=== PATIENT | male | born 1975 | race Two or more races ===

== ENCOUNTER 2022-12-14 11:52 | Emergency (ER) | payer MEDICAID, SELFPAY ==
--- NOTE | ~2022-12-14 | XR_ITS ---
Examination: Right ankle and right foot: CLINICAL INDICATION: Foot pain. TECHNIQUE: Right foot 3 views and right ankle 2 views. FINDINGS: Right foot: There is no visible acute fracture, dislocation or subluxation seen. The soft tissues are normal. Right ankle: The ankle mortise and subtalar joints are normal. There is a nondisplaced fracture tip of medial malleolus with minimal soft tissue swelling. Minimal lateral malleolar soft tissue swelling is seen inferior to the fibula. XR/XR ankle RT min 3V IMPRESSION: Nondisplaced transverse fracture tip of medial malleolus with mild medial malleolar soft tissue swelling. Minimal lateral malleolar soft tissue swelling seen as well. No additional fracture seen. The right foot is unremarkable.
--- NOTE | ~2022-12-14 | XR_ITS ---
Examination: Right ankle and right foot: CLINICAL INDICATION: Foot pain. TECHNIQUE: Right foot 3 views and right ankle 2 views. FINDINGS: Right foot: There is no visible acute fracture, dislocation or subluxation seen. The soft tissues are normal. Right ankle: The ankle mortise and subtalar joints are normal. There is a nondisplaced fracture tip of medial malleolus with minimal soft tissue swelling. Minimal lateral malleolar soft tissue swelling is seen inferior to the fibula. XR/XR foot RT min 3V IMPRESSION: Nondisplaced transverse fracture tip of medial malleolus with mild medial malleolar soft tissue swelling. Minimal lateral malleolar soft tissue swelling seen as well. No additional fracture seen. The right foot is unremarkable.
[2022-12-14 12:00] VITALS: BP 140/94; PULSE 84
[2022-12-14 12:10] VITALS: BP 121/80; PULSE 80; RESP 16; TEMP 36.9; O2SAT 100; BMI 21.1
--- NOTE | 2022-12-14 13:11 | ED_ITS ---
HPI - General Adult General Chief complaint: Extremity Injury, Lower Stated complaint: R FOOT PAIN S/P DROPPING FURNITURE PER EMS Time Seen by Provider: 12/14/22 13:07 Source: patient and EMS Mode of arrival: EMS Limitations: no limitations History of Present Illness HPI narrative: Patient is a 47 year old assigned male at with a history of opiate abuse presenting to the emergency department today with right ankle pain. Patient states that he was carrying a couch, missed 4-5 steps, and twisted his right ank le. Patient denies hitting his head or having any loss of consciousness from the incident. Patient states that he would also like to go to detox. Patient denies any dizziness, lightheadedness, abdominal pain, nausea, vomiting, fever, chills, blurry vision, double vision, loss of vision, chest pain, difficulty breathing, shortness of breath, back pain, night sweats, pain with urination, increased u rinary frequency, increased urinary urgency, blood in his urine or stool, syncope or a near syncopal episode, bowel incontinence, bladder incontinence, bowel retention, bladder retention, or any other complaints at this time. Onset (ago): minute(s) Location: left and lower extremity Severity: mild Severity scale (1-10): 2 Relieving factors: none Exacerbating factors: none Associated symptoms: denies other symptoms Treatments prior to arrival: none Related Data Allergies Allergy/AdvReac Type Severity Reaction Status Date / Time No Known Allergies Allergy Verified 12/14/22 12:10 Review of Systems Constitutional: Constitutional: Reports no additional constitutional complaints, Denies chills, Denies fever(s) and Denies night sweats Eyes: Eyes: Reports no additional eye complaints, Denies blurry vision, Denies change in vision, Denies diplopia, Denies eye discharge, Denies loss of vision and Denies eye pain ENT: Denies dizziness Cardiovascular: Cardiovascular: Reports no additional cardiovascular complaints, Denies chest pain, Denies lightheadedness, Denies Loss of Consciousness and Denies dyspnea Respiratory: Respiratory: Reports no additional respiratory complaints and Denies dyspnea Gastrointestinal: Gastrointestinal: Reports no additional gastrointestinal complaints, Denies abdominal pain, Denies melena, Denies hematochezia, Denies change in bowel habits and Denies change in stool character Genitourinary: Genitourinary: Reports no additional male genitourinary complaints, Denies hematuria, Denies oliguria, Denies difficulty urinating, Denies dysuria, Denies urinary frequency, Denies urinary hesitancy, Denies urinary incontinence and Denies urinary urgency Musculoskeletal: Musculoskeletal: Reports no additional musculoskeletal complaints, Denies numbness and Denies tingling Comments: right ankle pain Neurologic: Denies dizziness, Denies loss of vision, Denies numbness and Kael es tingling Psychiatric: Psychiatric: Reports no additional psychiatric complaints Endocrine: Endocrine: Reports no additional endocrine complaints Hematologic/Lymphatic: Hematologic/Lymphatic: Reports no additional hematologic/lymphatic complaints Allergic/Immunologic: Allergic/Immunologic: Reports no additional allergic/immunologic complaints PMFSH Past Medical History Attestation statement: The following information was validated with the patient. Source: old records reviewed and nursing notes reviewed Social History Social History Alcohol intake: current Smoked in Last 30 Days: Yes Use of substances other than those prescribed or required for medical reasons: Yes Substance Use Type: Crack/Cocaine and Heroin Advance Directives: No Advance Directives Information Provided: Yes Physical Exam ED Vital Signs: Vital Signs - 24 hr 12/14/22 12:10 12/14/22 13:14 12/14/22 14:56 Temperature 98.5 F 98.3 F Pulse Rate 80 69 77 Respiratory Rate 16 16 14 Blood Pressure 121/80 135/90 H 131/77 Pulse Oximetry 100 99 99 Oxygen Delivery Method Room Air Room Air Room Air BMI result Body Mass Index 21.1 Const General: cooperative, no acute distress, alert and awake Nutritional Appearance: well nourished Orientation/consciousness: patient oriented x3 Limitations: no limitations [facility] Head: Yes normal to inspection and Yes atraumatic Ears: hearing grossly normal bilaterally and external ears normal General nose exam: Normal external nose present, no nasal discharge noted and no epistaxis Face and sinus: Yes normal facial exam, No abrasion and No laceration Mouth: Normal oral and palatal mucosa present, no drooling and no muffled voice Eyes General: appearance normal, both eyes and all related structures Periorbital: periorbital findings normal Eyelids: Yes eyelids normal Conjunctivae: conjunctivae normal Pupils: Equal, round and reactive pupils present EOM: EOMs intact bilaterally Neck Neck: Yes normal visual inspection, Yes full ROM and Yes no lymphadenopathy Chest Chest palpation & inspection: normal inspection of the chest Resp Effort & Inspection: normal respiratory effort and able to speak in complete sentences Auscultation: clear to auscultation bilaterally Cardio Rate: regular rate Rhythm: regular rhythm GI Inspection: Yes normal to inspection Neuro General: patient oriented x3 and moves all extremities Cranial nerves: Yes Equal, round and reactive pupils present Cognition (Neuro): normal cognition Motor exam (neuro): 5/5 motor strength present throughout Sensory Exam: Normal double simultaneous stimulation for sensation Coordination: [id number]-ca-[id number] test normal Extrem Other: minimal swellign to the right ankle General: Yes full ROM and Yes capillary refill normal Psych Appearance: grossly normal Mental Status: mental status grossly normal Affect: normal affect Attitude: cooperative Thought process: Normal thought process present Thought content: Normal thought content present Insight: Good insight present (Psych) Medications Administered Discontinued Medications Generic Name Dose Route Start Last Admin Trade Name Freq PRN Reason Stop Dose Admin Ketorolac Tromethamine 15 mg 12/14/22 14:38 12/14/22 14:55 Ketorolac Tromethamine 15 Mg/Ml Vial IM 12/14/22 14:39 15 mg ONCE ONE Administration Procedures Orthopedic Splinting/Casting Injury #1: Side: right Lower Extremity Injury Location: ankle Lower Extremity Immobilizer: posterior splint and stirrup splint Other Orthopedic Equipment: crutches Medical Decision Making Medical Decision Making MDM Narrative: Patient is a 47 year old assigned male at with a history of opioid abuse presenting to the emergency department today with right ankle pain and requesting detox. Patient's physical exam showed right ankle swelling but was otherwise unremarkable. Patient's right ankle x-ray showed an acute fracture. I explained my physical exam findings as well as all test results to the patient. I answered all questions asked by the patient. Patient had a splint applied to the affected ankle, without incident. PMS was intact prior to and after splint application. Recovery team was able to get the patient placed into a detox. I stressed the importance of the patient taking his regular medication as prescr ibed. I stressed the importance of the patient following up with his primary care provider and an orthopedic provider. I stressed the importance of the patient returning to the emergency department immediately if his symptoms were to worsen or if he were to develop any dizziness, shortness of breath, difficulty breathing, chest pain, blurry vision, loss of vision, nausea, vomiting, abdominal pain, fever, chills, back pain, or any other complaints. Patient verbalized agreement and understanding with this treatment plan and discharge. Differential Diagnosis Differential Diagnoses: The differential diagnosis associated with the presen tation includes right ankle fracture, detox Lab Data MDM Lab Attestation statement: I reviewed the patient's lab results. 12/14/22 13:48 12/14/22 13:48 Labs: Lab Results 12/14/22 12/14/22 12/14/22 Range/Units 13:48 13:48 13:48 WBC 10.1 (4.8-10.8) X10*3/uL RBC 4.04 L (4.60-5.80) X10*6/uL Hgb 12.9 L (14.0-18.0) g/dl Hct 38.6 L (42.0-52.0) % MCV 95.5 (80.0-98.0) fL MCH 31.9 (27.0-33.0) pg MCHC 33.4 (31.0-36.0) g/dl RDW 11.9 (11.0-16.0) % Plt Count 246 (160-400) X10*3/uL MPV 9.9 (9.4-12.4) fL Immature Gran % (Auto) 0.3 (0.0-0.4) % Neut % (Auto) 81.8 H (45-73) % Lymph % (Auto) 9.2 L (20-40) % Ashley % (Auto) 8.4 (2-11) % Eos % (Auto) 0.0 (0-4) % Baso % (Auto) 0.3 (0-2) % Lymph # (Auto) 0.9 L (1.2-4.9) X10*3/uL Ashley # (Auto) 0.9 (0.1-1.2) X10*3/uL Eos # (Auto) 0.0 (0.0-0.4) X10*3/uL Baso # (Auto) 0.0 (0.0-0.2) X10*3/uL Abs Immat Gran (auto) 0.03 (0.00-0.03) X10*3/uL Absolute Neuts (auto) 8.2 (2.0-8.3) x10*3/uL Absolute Nucleated RBC 0.000 (0.0-0.012) X10*3/uL Nucleated RBC % (auto) 0.0 (0.0-0.2) /100WBC Sodium 139 (135-145) mmol/L Potassium 3.7 (3.3-5.1) mmol/L Chloride 102 (96-108) mmol/L Carbon Dioxide 28 (22-29) mmol/L Anion Gap 13 (12-20) BUN 11 (9-16) mg/dL Creatinine 1.03 (0.5-1.4) mg/dL Estim Creat Clear Calc 76.7 Estimated GFR > 60 Random Glucose 165 H (60-115) mg/dL Calcium 8.7 (8.4-10.2) mg/dL Magnesium 2.2 (1.6-2.6) mg/dL Total Bilirubin 0.6 (0.0-1.0) mg/dL AST 20 (5-37) U/L ALT 10 (0-40) U/L Alkaline Phosphatase 68 (39-117) U/L Total Protein 5.9 L (6.5-8.0) g/dL Albumin 3.5 (3.5-5.0) g/dL Urine Opiates Screen (Not Detect) Urine Fentanyl Screen (Not Detect) Ur Barbiturates Screen (Not Detect) Ur Phencyclidine Scrn (Not Detect) Ur Amphetamines Screen (Not Detect) U Benzodiazepines Scrn (Not Detect) Urine Cocaine Screen (Not Detect) U Marijuana (THC) Screen (Not Detect) Ethyl Alcohol < 10 mg/dL COVID-19 (HYUN) Negative (Negative) COVID-19 Clin Com See Note 12/14/22 Range/Units 13:48 WBC (4.8-10.8) X10*3/uL RBC (4.60-5.80) X10*6/uL Hgb (14.0-18.0) g/dl Hct (42.0-52.0) % MCV (80.0-98.0) fL MCH (27.0-33.0) pg MCHC (31.0-36.0) g/dl RDW (11.0-16.0) % Plt Count (160-400) X10*3/uL MPV (9.4-12.4) fL Immature Gran % (Auto) (0.0-0.4) % Neut % (Auto) (45-73) % Lymph % (Auto) (20-40) % Ashley % (Auto) (2-11) % Eos % (Auto) (0-4) % Baso % (Auto) (0-2) % Lymph # (Auto) (1.2-4.9) X10*3/uL Ashley # (Auto) (0.1-1.2) X10*3/uL Eos # (Auto) (0.0-0.4) X10*3/uL Baso # (Auto) (0.0-0.2) X10*3/uL Abs Immat Gran (auto) (0.00-0.03) X10*3/uL Absolute Neuts (auto) (2.0-8.3) x10*3/uL Absolute Nucleated RBC (0.0-0.012) X10*3/uL Nucleated RBC % (auto) (0.0-0.2) /100WBC Sodium (135-145) mmol/L Potassium (3.3-5.1) mmol/L Chloride (96-108) mmol/L Carbon Dioxide (22-29) mmol/L Anion Gap (12-20) BUN (9-16) mg/dL Creatinine (0.5-1.4) mg/dL Estim Creat Clear Calc Estimated GFR Random Glucose (60-115) mg/dL Calcium (8.4-10.2) mg/dL Magnesium (1.6-2.6) mg/dL Total Bilirubin (0.0-1.0) mg/dL AST (5-37) U/L ALT (0-40) U/L Alkaline Phosphatase (39-117) U/L Total Protein (6.5-8.0) g/dL Albumin (3.5-5.0) g/dL Urine Opiates Screen Not Detected (Not Detect) Urine Fentanyl Screen POSITIVE H (Not Detect) Ur Barbiturates Screen Not Detected (Not Detect) Ur Phencyclidine Scrn Not Detected (Not Detect) Ur Amphetamines Screen Not Detected (Not Detect) U Benzodiazepines Scrn Not Detected (Not Detect) Urine Cocaine Screen POSITIVE H (Not Detect) U Marijuana (THC) Screen Not Detected (Not Detect) Ethyl Alcohol mg/dL COVID-19 (HYUN) (Negative) COVID-19 Clin Com Independent Interpretation I performed an independent interpretation of an: Plain X-Ray Interpretation: My interpretation is in agreement with the radiologist's impression of these imaging studies. Examination: Right ankle and right foot: CLINICAL INDICATION: Foot pain. TECHNIQUE: Right foot 3 views and right ankle 2 views. FINDINGS: Right foot: There is no visible acute fracture, dislocation or subluxation seen. The soft tissues are normal. Right ankle: The ankle mortise and subtalar joints are normal. There is a nondisplaced fracture tip of medial malleolus with minimal soft tissue swelling. Minimal lateral malleolar soft tissue swelling is seen inferior to the fibula. XR/XR foot RT min 3V IMPRESSION: Nondisplaced transverse fracture tip of medial malleolus with mild medial malleolar soft tissue swelling. Minimal lateral malleolar soft tissue swelling seen as well. ? No additional fracture seen. The right foot is unremarkable. Dictated By: Adrian Fajardo MD Signed By: Electronically signed by Adrian Fajardo MD 12/14/22 1300 Critical Care Time Critical Care Time Critical Care Time: Yes Total Critical Care Time: 30 Attestation: I spent 30 minutes of Critical Care Time with this patient. This does not include time spent on separately reported billable procedures. Discharge Plan Discharge Clinical Impression: Ankle fracture, Opioid use Patient Disposition: Home, Self-Care Instructions: Ankle Fracture (DC), Opioid Use Disorder (ED) Additional Instructions: Follow up with your primary care provider. Return to the emergency department immediately if your symptoms worsen or if you develop any dizziness, shortness of breath, difficulty breathing, chest pain, blurry vision, loss of vision, nausea, vomiting, abdominal pain, fever, chills, back pain, or any other complaints. Referrals: [facility] [Provider Group] (Call to establish and follow up with an orthopedic provider. ) Print Language: Thai
[2022-12-14 13:14] VITALS: BP 135/90; PULSE 69; RESP 16; TEMP 36.8; O2SAT 99
--- NOTE | 2022-12-14 13:31 | PC.NURSE ---
Splint to right ankle applied, +cms to distal extremity. Pt requesting and given food
[2022-12-14 13:59] LABS: MANUAL DIFF FLAG NO
[2022-12-14 14:06] LABS: Basophils Percent Auto 0.3 % (0-2); Hematocrit 38.6 % (42.0-52.0); Hemoglobin 12.9 g/dl (14.0-18.0); Imm Gran Abs Auto 0.03 X10*3/uL (0.00-0.03); Imm Gran Pct Auto 0.3 % (0.0-0.4); Lymphocytes Absolute Auto 0.9 X10*3/uL (1.2-4.9); Lymphocytes Percent Auto 9.2 % (20-40); Mean Corpuscular HGB Conc 33.4 g/dl (31.0-36.0); Mean Corpuscular Hemoglobin 31.9 pg (27.0-33.0); Mean Corpuscular Volume 95.5 fL (80.0-98.0); Mean Platelet Volume 9.9 fL (9.4-12.4); Monocytes Absolute Auto 0.9 X10*3/uL (0.1-1.2); Monocytes Percent Auto 8.4 % (2-11); Neutrophils Absolute Auto 8.2 x10*3/uL (2.0-8.3); Neutrophils Percent Auto 81.8 % (45-73); Platelet Count 246 X10*3/uL (160-400); Red Blood Count 4.04 X10*6/uL (4.60-5.80); Red Cell Distribution Width 11.9 % (11.0-16.0); White Blood Count 10.1 X10*3/uL (4.8-10.8)
[2022-12-14 14:17] LABS: Amphetamine Screen Urine Not Detected (Not Detect); Barbiturates, Urine Not Detected (Not Detect); Benzodiazepines Screen Urine Not Detected (Not Detect); Cannabinoid Screen Urine Not Detected (Not Detect); Cocaine Screen Urine POSITIVE (Not Detect); Fentanyl, urine POSITIVE (Not Detect); Opiate Screen Urine Not Detected (Not Detect); Phencyclidine Screen Urine Not Detected (Not Detect)
[2022-12-14 14:26] LABS: Alanine Aminotransferase 10 U/L (0-40); Albumin Level 3.5 g/dL (3.5-5.0); Alkaline Phosphatase 68 U/L (39-117); Anion Gap 13 (12-20); Aspartate Amino Transferase 20 U/L (5-37); Bilirubin Total 0.6 mg/dL (0.0-1.0); Blood Urea Nitrogen 11 mg/dL (9-16); Calcium 8.7 mg/dL (8.4-10.2); Carbon Dioxide 28 mmol/L (22-29); Chloride 102 mmol/L (96-108); Creatinine Clr Calc Pharmacy 76.7; Estimated Glomerular Filt Rate > 60; Ethanol < 10 mg/dL; Glucose Random 165 mg/dL (60-115); Magnesium 2.2 mg/dL (1.6-2.6); Potassium 3.7 mmol/L (3.3-5.1); Sodium 139 mmol/L (135-145); Total Protein 5.9 g/dL (6.5-8.0)
[2022-12-14 14:28] LABS: COVID-19 Test Negative (Negative); IDNOW Serial# 08D9AD1C
--- NOTE | 2022-12-14 14:38 | MHC.RECOVSUP ---
Met with pt in ED21 for potential ATS bed search. Pt reports having used for the past year, smoking about 1 bundle of heroin and 1 8 ball of crack a day. 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
[2022-12-14] MEDS: Ketorolac Tromethamine 15 MG/ML VIAL IM (14:55)
[2022-12-14 14:56] VITALS: BP 131/77; PULSE 77; RESP 14; O2SAT 99
--- NOTE | 2022-12-14 14:56 | MHC.RECOVSUP ---
[facility] has an open bed and informs that pt being in a split should not prevent him from being accepted, referral packet faxed.
--- NOTE | 2022-12-14 15:00 | PC.NURSE ---
Pt medicated for 10/10 right ankle pain. 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 Pt reports dependence on ETOH and crack/heroin. Reports h/o ETOH withdrawal but denies seizures and unable to state withdrawal sx. Last drink just CIRCUIT TESTER per pt. VSS Right ankle elevated, +CMS
--- NOTE | 2022-12-14 15:50 | MHC.RECOVSUP ---
Pt accepted to [facility] T/W arranging [facility] for 4:30pm admission.
== END 2022-12-14 16:19 | disposition home or self-care (01) ==
PROVIDERS: Physician Assistant Medical; Emergency Provider Emergency Medicine Emergency Medical Services
DX: S82.54XA Nondisplaced fracture of medial malleolus of right tibia, initial encounter for closed fracture (principal); X50.1XXA Overexertion from prolonged static or awkward postures, initial encounter; F11.10 Opioid abuse, uncomplicated; Y93.E9 Activity, other interior property and clothing maintenance; Y92.9 Unspecified place or not applicable; Y99.9 Unspecified external cause status
CPT/HCPCS: 29515; 36415; 73610; 73630; 80053; 80307; 82077; 83735; 85025; 87635; 96372; 99284; J1885

== ENCOUNTER 2022-12-23 07:10 | Outpatient (REF) | payer MEDICAID, SELFPAY ==
--- NOTE | ~2022-12-23 | XR_ITS ---
EXAMINATION: XR ANKLE, RIGHT CLINICAL INFORMATION: Right ankle pain. COMPARISON: Right ankle 12/14/2022 TECHNIQUE: AP, lateral, and mortise views of the right ankle. FINDINGS: There is a nondisplaced fracture medial malleolus with mild soft tissue swelling. No additional fracture seen. The ankle mortise and subtalar joints are normal. XR/XR ankle RT min 3V IMPRESSION: Nondisplaced fracture medial malleolus with mild soft tissue swelling. No major change compared to 12/14/2022
== END 2022-12-23 07:11 | disposition home or self-care (01) ==
LOC: HO.HOSX 07:10
PROVIDERS: Visit Provider Physician Assistant
DX: S82.891A Other fracture of right lower leg, initial encounter for closed fracture (principal)
CPT/HCPCS: 27760; 29405; 73610; 99202

== ENCOUNTER 2023-01-01 22:18 | Emergency (ER) | payer MEDICAID, SELFPAY ==
--- NOTE | ~2023-01-01 | CT_ITS ---
EXAMINATION: CT MASTOID INDICATION INFORMATION: Rule out right mastoiditis COMPARISON: None TECHNIQUE: 85 mL Omnipaque 350 intravenous contrast was utilized. Multidetector helical imaging was performed through the bilateral mastoids. Coronal and sagittal reformatted images were created. DLP: 388 mGy-cm DOSE LOWERING TECHNIQUES: This CT examination was performed using dose optimization techniques as appropriate, variously including the following: - Automated exposure control - Adjustment of mA and/or kV according to patient size (this includes techniques or standardized protocols for targeted exams were dose is matched to indication/reason for exam; i.e. extremities or head) - Use of iterative reconstruction technique FINDINGS: There is minimal scattered fluid in the posterior and inferior right mastoid air cells. No appreciable erosion of the bony septa. Middle ear cavity appears aerated. No surrounding bony erosion identified. Right external auditory canal appears opacified, with soft tissue thickening and inflammation. There is concern for developing phlegmonous change anterior to the inferior right mastoid air cells, without discrete organized collection at this time. Left mastoid air cells and middle ear cavity appear well-aerated. Visualized paranasal sinuses are well-aerated. There is anatomic alignment across the temporomandibular joints. There is mild stranding in the right parapharyngeal fat. Included portions of the brain parenchyma appear grossly unremarkable. CT/CT mastoid IMPRESSION: 1. Soft tissue thickening and inflammation of the right external auditory canal, suspicious for otitis externa. There is concern for developing phlegmonous change anterior to the inferior right mastoid air cells, without discrete organized collection at this time. 2. Minimal scattered fluid in the right mastoid air cells, without appreciable erosion of the bony septa. Middle ear cavity appears aerated.
[2023-01-01 22:21] VITALS: BP 130/78; BP 146/86; PULSE 75; PULSE 91; RESP 16; TEMP 36.5; O2SAT 94; BMI 23.5
[2023-01-01 23:06] LABS: Amphetamine Screen Urine Not Detected (Not Detect); Barbiturates, Urine Not Detected (Not Detect); Benzodiazepines Screen Urine Not Detected (Not Detect); Cannabinoid Screen Urine POSITIVE (Not Detect); Cocaine Screen Urine POSITIVE (Not Detect); Fentanyl, urine POSITIVE (Not Detect); Opiate Screen Urine Not Detected (Not Detect); Phencyclidine Screen Urine Not Detected (Not Detect)
[2023-01-01 23:15] LABS: MANUAL DIFF FLAG NO
[2023-01-01 23:17] LABS: Basophils Percent Auto 0.2 % (0-2); Eosinophils Percent Auto 0.1 % (0-4); Hematocrit 40.9 % (42.0-52.0); Hemoglobin 13.6 g/dl (14.0-18.0); Imm Gran Abs Auto 0.04 X10*3/uL (0.00-0.03); Imm Gran Pct Auto 0.3 % (0.0-0.4); Lymphocytes Absolute Auto 1.4 X10*3/uL (1.2-4.9); Lymphocytes Percent Auto 10.6 % (20-40); Mean Corpuscular HGB Conc 33.3 g/dl (31.0-36.0); Mean Corpuscular Hemoglobin 31.9 pg (27.0-33.0); Mean Platelet Volume 9.5 fL (9.4-12.4); Monocytes Absolute Auto 1.3 X10*3/uL (0.1-1.2); Monocytes Percent Auto 10.1 % (2-11); Neutrophils Absolute Auto 10.1 x10*3/uL (2.0-8.3); Neutrophils Percent Auto 78.7 % (45-73); Platelet Count 324 X10*3/uL (160-400); Red Blood Count 4.26 X10*6/uL (4.60-5.80); White Blood Count 12.8 X10*3/uL (4.8-10.8)
[2023-01-01 23:33] LABS: Alanine Aminotransferase 16 U/L (0-40); Albumin Level 4.2 g/dL (3.5-5.0); Alkaline Phosphatase 70 U/L (39-117); Anion Gap 13 (12-20); Aspartate Amino Transferase 25 U/L (5-37); Bilirubin Direct 0.1 mg/dL (0.0-0.5); Bilirubin Total 0.4 mg/dL (0.0-1.0); Blood Urea Nitrogen 12 mg/dL (9-16); Calcium 9.1 mg/dL (8.4-10.2); Carbon Dioxide 31 mmol/L (22-29); Chloride 102 mmol/L (96-108); Creatinine Clr Calc Pharmacy 82.8; Estimated Glomerular Filt Rate > 60; Glucose Random 115 mg/dL (60-115); Potassium 3.8 mmol/L (3.3-5.1); Sodium 142 mmol/L (135-145); Total Protein 6.9 g/dL (6.5-8.0)
[2023-01-01] MEDS: 0.9 % Sodium Chloride 1,000 ML 999 ML IVCONT (23:59)
[2023-01-01] MEDS: Clindamycin Phosphate/D5W 300 MG/50 ML PIGGYBACK 100 MG IV (23:59)
[2023-01-02] MEDS: methylPREDNISolone Sod Succ 125 MG/2 ML VIAL IVPUSH (00:05)
[2023-01-02] MEDS: diphenhydrAMINE HCL 50 MG/ML VIAL IVPUSH (00:05)
[2023-01-02] MEDS: Famotidine/PF 20 MG/2 ML VIAL IVPUSH (00:05)
[2023-01-02 00:16] VITALS: BP 141/82; PULSE 90; RESP 14; O2SAT 99
[2023-01-02 00:25] LABS: Ethanol < 10 mg/dL
[2023-01-02] MEDS: iohexoL 350 MG/ML 100 ML INFUS..BTL 85 ML IV (00:40)
[2023-01-02 01:09] VITALS: RESP 17
--- NOTE | 2023-01-02 01:27 | ED.ALCOHOL ---
HPI - Alcohol General Chief Complaint: ETOH/Substance Use Stated Complaint: ETOH USE PER EMS Time Seen by Provider: 01/01/23 22:36 Source: patient Mode of arrival: EMS Limitations: no limitations History of Present Illness HPI narrative: Patient comes to the emergency room via EMS. Patient was found wandering in the streets by police department. Patient admits that he has been using crack cocaine and heroin and drinking alcohol as well. Patient denies nausea vomiting diarrhea. Also, patient complaining of right-sided ear pain that started 3 days ago. Patient states that he thinks he has an infection and has been self treating it by pouring whiskey into his ear canal Related Data Home Medications Medication Instructions Recorded Confirmed No Known Home Meds 12/23/22 12/23/22 Allergies Allergy/AdvReac Type Severity Reaction Status Date / Time No Known Allergies Allergy Verified 12/23/22 09:43 Review of Systems Review of Systems: Constitutional : No Weight loss, No Fever, No Chills, No Night Sweats, No Fatigue, No Malaise ENT/Mouth : No Hearing loss, complaining of right-sided Ear Pain, swelling and inflammation. No Nasal Congestion, No Sinus Pain, No Hoarseness, No sore throat, No Rhinorrhea, No Swallowing Difficulty Eyes: No Eye Pain, No Swelling, No Redness, No Foreign Body, No Discharge, No Vision Changes Cardiovascular : No Chest Pain, No SOB, No Dyspnea on Exertion, No Orthopnea, No Edema, No Palpitations Respiratory : No Cough, No Sputum, No Wheezing, No Smoke Exposure, No Dyspnea Gastrointestinal : No Nausea, No Vomiting, No Diarrhea, No Constipation, No abdominal Pain, No Hematochezia, No Melena Genitourinary : no irregular bleeding, No Dysuria, No Urinary Frequency, No Hematuria, No Urinary Incontinence, No Urgency, No Flank Pain, No Urinary Flow Changes, No Hesitancy Musculoskeletal : No joint pain, No Myalgias, No Joint Swelling Skin : No Skin Lesions, No rash Neuro : No Weakness, No Numbness, No Paresthesias, No Loss of Consciousness, No Dizziness, No Headache Psych : No Anxiety/Panic, No Depression, No SI/HI/AH/VH, admits to using drugs and drinking alcohol Heme/Lymph: No Bruising, No Bleeding,No Lymphadenopathy Endocrine : No Polyuria, No Polydipsia, No Temperature Intolerance [facility] Past Medical History Medical History (Updated 01/02/23 @ 02:43 by Kasey Noble MD) Alcohol abuse Substance abuse Social History Social History (Updated 12/23/22 @ 09:43 by Memo Wallace) Alcohol intake: current Alcohol intake frequency: 0-2 drinks per day Alcohol type: beer and hard liquor Patient Tobacco Use Status: Former Tobacco user Smoked in Last 30 Days: Yes Use of substances other than those prescribed or required for medical reasons: Yes Substance Use Type: Crack/Cocaine and Heroin Advance Directives: No Advance Directives Information Provided: No Physical Exam ED Vital Signs: Vital Signs - 24 hr 01/01/23 22:21 01/02/23 00:16 01/02/23 01:09 Temperature 97.7 F Pulse Rate 91 90 Respiratory Rate 16 14 17 Blood Pressure 146/86 H 141/82 H Pulse Oximetry 94 99 Oxygen Delivery Method Room Air Room Air BMI result Body Mass Index 23.5 Const Other: Appearance: Alert. Oriented X3. No acute distress. Eyes: Pupils equal, round and reactive to light. ENT: Pharynx normal. Left ear canal within normal limits . Right ear canal exteriorly is grossly swollen, there is purulence draining from the ear canal, patient has pain at the tip of the mastoid bone. Due to the swelling in the ear canal, the tympanic membrane cannot be visualized Neck: Normal inspection. Neck supple. No lymph nodes noted. No crepitus CVS: Normal heart rate and rhythm. Pulses normal. Normal S1 and S2 Respiratory: No respiratory distress. Breath sounds normal. No Wheezing. No rales Abdomen: Soft and nontender. No rigidity. No distention. Skin: Skin warm and dry. Normal skin color. Normal skin turgor. Extremities: No lower extremity edema. No Lacerations. No Rash Neuro: Oriented X 3. No motor deficit. No sensory deficit. Moving all extremities. No slurred speech. CN 2 through 12 grossly intact Psych: calm, cooperative, normal affect Course Course Course Narrative: -patient had pain to palpation over the mastoid bone on the right side, labs and CT scan to rule out mastoiditis bending. Patient was given IV clindamycin while we wait for the results. -blood pressure stable, no fever, sepsis not suspect Medical Decision Making Medical Decision Making MDM Narrative: -patient was started on clindamycin IV. -CT scan of the mastoid bone shows otitis externa, concern for developing phlegmonous change anterior to the inferior right mastoid air cells without discrete organized collection at this time, no appreciable erosion of the bony septum. -I discussed the patient with Dr. Ritter, since we do not have ENT in case this develops into mastoiditis, recommendations are to transfer the patient. -we tried transferring the patient to [facility], [facility], who [place], [facility], all are close to transfers or do not have ENT on-call -we were able to get in touch with [place], pt accepted to [facility] ED. Patient agreeable to the transfer - Sign-out given to Dr. Higginbotham Differential Diagnosis Differential Diagnoses: The differential diagnosis associated with the presentation includes (Otitis media, otitis externa, mastoiditis) Admission/Observation Consideration of admission/observation: Escalation of care including admission/observation considered Consult Healthcare Provider Management of the patient was discussed with: Hospitalist Lab Data MDM Lab Attestation statement: I reviewed the patient's lab results. 01/01/23 23:12 01/01/23 08:35 Labs: Lab Results 01/01/23 01/01/23 01/01/23 Range/Units 22:48 23:12 23:12 WBC 12.8 H (4.8-10.8) X10*3/uL RBC 4.26 L (4.60-5.80) X10*6/uL Hgb 13.6 L (14.0-18.0) g/dl Hct 40.9 L (42.0-52.0) % MCV 96.0 (80.0-98.0) fL MCH 31.9 (27.0-33.0) pg MCHC 33.3 (31.0-36.0) g/dl RDW 12.0 (11.0-16.0) % Plt Count 324 D (160-400) X10*3/uL MPV 9.5 (9.4-12.4) fL Immature Gran % (Auto) 0.3 (0.0-0.4) % Neut % (Auto) 78.7 H (45-73) % Lymph % (Auto) 10.6 L (20-40) % [place] % (Auto) 10.1 (2-11) % Eos % (Auto) 0.1 (0-4) % Baso % (Auto) 0.2 (0-2) % Lymph # (Auto) 1.4 (1.2-4.9) X10*3/uL [place] # (Auto) 1.3 H (0.1-1.2) X10*3/uL Eos # (Auto) 0.0 (0.0-0.4) X10*3/uL Baso # (Auto) 0.0 (0.0-0.2) X10*3/uL Abs Immat Gran (auto) 0.04 H (0.00-0.03) X10*3/uL Absolute Neuts (auto) 10.1 H (2.0-8.3) x10*3/uL Absolute Nucleated RBC 0.000 (0.0-0.012) X10*3/uL Nucleated RBC % (auto) 0.0 (0.0-0.2) /100WBC ESR (0-15) MM/HR Sodium 142 (135-145) mmol/L Potassium 3.8 (3.3-5.1) mmol/L Chloride 102 (96-108) mmol/L Carbon Dioxide 31 H (22-29) mmol/L Anion Gap 13 (12-20) BUN 12 (9-16) mg/dL Creatinine 1.03 (0.5-1.4) mg/dL Estim Creat Clear Calc 82.8 Estimated GFR > 60 Random Glucose 115 (60-115) mg/dL Lactic Acid (0.5-2.0) mmol/L Calcium 9.1 (8.4-10.2) mg/dL Total Bilirubin 0.4 (0.0-1.0) mg/dL Direct Bilirubin 0.1 (0.0-0.5) mg/dL AST 25 (5-37) U/L ALT 16 (0-40) U/L Alkaline Phosphatase 70 (39-117) U/L C-Reactive Protein 0.47 (< or = 0.50) mg/dL Total Protein 6.9 (6.5-8.0) g/dL Albumin 4.2 (3.5-5.0) g/dL Urine Opiates Screen Not Detected (Not Detect) Urine Fentanyl Screen POSITIVE H (Not Detect) Ur Barbiturates Screen Not Detected (Not Detect) Ur Phencyclidine Scrn Not Detected (Not Detect) Ur Amphetamines Screen Not Detected (Not Detect) U Benzodiazepines Scrn Not Detected (Not Detect) Urine Cocaine Screen POSITIVE H (Not Detect) U Marijuana (THC) Screen POSITIVE H (Not Detect) Ethyl Alcohol mg/dL COVID-19 (HYUN) (Negative) COVID-19 Clin Com 01/01/23 01/01/23 01/02/23 Range/Units 23:12 23:58 02:04 WBC (4.8-10.8) X10*3/uL RBC (4.60-5.80) X10*6/uL Hgb (14.0-18.0) g/dl Hct (42.0-52.0) % MCV (80.0-98.0) fL MCH (27.0-33.0) pg MCHC (31.0-36.0) g/dl RDW (11.0-16.0) % Plt Count (160-400) X10*3/uL MPV (9.4-12.4) fL Immature Gran % (Auto) (0.0-0.4) % Neut % (Auto) (45-73) % Lymph % (Auto) (20-40) % [place] % (Auto) (2-11) % Eos % (Auto) (0-4) % Baso % (Auto) (0-2) % Lymph # (Auto) (1.2-4.9) X10*3/uL [place] # (Auto) (0.1-1.2) X10*3/uL Eos # (Auto) (0.0-0.4) X10*3/uL Baso # (Auto) (0.0-0.2) X10*3/uL Abs Immat Gran (auto) (0.00-0.03) X10*3/uL Absolute Neuts (auto) (2.0-8.3) x10*3/uL Absolute Nucleated RBC (0.0-0.012) X10*3/uL Nucleated RBC % (auto) (0.0-0.2) /100WBC ESR 11 (0-15) MM/HR Sodium (135-145) mmol/L Potassium (3.3-5.1) mmol/L Chloride (96-108) mmol/L Carbon Dioxide (22-29) mmol/L Anion Gap (12-20) BUN (9-16) mg/dL Creatinine (0.5-1.4) mg/dL Estim Creat Clear Calc Estimated GFR Random Glucose (60-115) mg/dL Lactic Acid (0.5-2.0) mmol/L Calcium (8.4-10.2) mg/dL Total Bilirubin (0.0-1.0) mg/dL Direct Bilirubin (0.0-0.5) mg/dL AST (5-37) U/L ALT (0-40) U/L Alkaline Phosphatase (39-117) U/L C-Reactive Protein (< or = 0.50) mg/dL Total Protein (6.5-8.0) g/dL Albumin (3.5-5.0) g/dL Urine Opiates Screen (Not Detect) Urine Fentanyl Screen (Not Detect) Ur Barbiturates Screen (Not Detect) Ur Phencyclidine Scrn (Not Detect) Ur Amphetamines Screen (Not Detect) U Benzodiazepines Scrn (Not Detect) Urine Cocaine Screen (Not Detect) U Marijuana (THC) Screen (Not Detect) Ethyl Alcohol < 10 mg/dL COVID-19 (HYUN) Negative (Negative) COVID-19 Clin Com See Note 01/02/23 Range/Units 02:06 WBC (4.8-10.8) X10*3/uL RBC (4.60-5.80) X10*6/uL Hgb (14.0-18.0) g/dl Hct (42.0-52.0) % MCV (80.0-98.0) fL MCH (27.0-33.0) pg MCHC (31.0-36.0) g/dl RDW (11.0-16.0) % Plt Count (160-400) X10*3/uL MPV (9.4-12.4) fL Immature Gran % (Auto) (0.0-0.4) % Neut % (Auto) (45-73) % Lymph % (Auto) (20-40) % [place] % (Auto) (2-11) % Eos % (Auto) (0-4) % Baso % (Auto) (0-2) % Lymph # (Auto) (1.2-4.9) X10*3/uL [place] # (Auto) (0.1-1.2) X10*3/uL Eos # (Auto) (0.0-0.4) X10*3/uL Baso # (Auto) (0.0-0.2) X10*3/uL Abs Immat Gran (auto) (0.00-0.03) X10*3/uL Absolute Neuts (auto) (2.0-8.3) x10*3/uL Absolute Nucleated RBC (0.0-0.012) X10*3/uL Nucleated RBC % (auto) (0.0-0.2) /100WBC ESR (0-15) MM/HR Sodium (135-145) mmol/L Potassium (3.3-5.1) mmol/L Chloride (96-108) mmol/L Carbon Dioxide (22-29) mmol/L Anion Gap (12-20) BUN (9-16) mg/dL Creatinine (0.5-1.4) mg/dL Estim Creat Clear Calc Estimated GFR Random Glucose (60-115) mg/dL Lactic Acid 0.7 (0.5-2.0) mmol/L Calcium (8.4-10.2) mg/dL Total Bilirubin (0.0-1.0) mg/dL Direct Bilirubin (0.0-0.5) mg/dL AST (5-37) U/L ALT (0-40) U/L Alkaline Phosphatase (39-117) U/L C-Reactive Protein (< or = 0.50) mg/dL Total Protein (6.5-8.0) g/dL Albumin (3.5-5.0) g/dL Urine Opiates Screen (Not Detect) Urine Fentanyl Screen (Not Detect) Ur Barbiturates Screen (Not Detect) Ur Phencyclidine Scrn (Not Detect) Ur Amphetamines Screen (Not Detect) U Benzodiazepines Scrn (Not Detect) Urine Cocaine Screen (Not Detect) U Marijuana (THC) Screen (Not Detect) Ethyl Alcohol mg/dL COVID-19 (HYUN) (Negative) COVID-19 Clin Com Radiology Impression Discussion of test interpretation with radiology: I have reviewed the radiologist's reading. Radiologist Impression: FINDINGS: There is minimal scattered fluid in the posterior and inferior right mastoid air cells. No appreciable erosion of the bony septa. Middle ear cavity appears aerated. No surrounding bony erosion identified. Right external auditory canal appears opacified, with soft tissue thickening and inflammation. There is concern for developing phlegmonous change anterior to the inferior right mastoid air cells, without discrete organized collection at this time. Left mastoid air cells and middle ear cavity appear well-aerated. Visualized paranasal sinuses are well-aerated. There is anatomic alignment across the temporomandibular joints. There is mild stranding in the right parapharyngeal fat. Included portions of the brain parenchyma appear grossly unremarkable. CT/CT mastoid IMPRESSION: 1.? Soft tissue thickening and inflammation of the right external auditory canal, suspicious for otitis externa. There is concern for developing phlegmonous change anterior to the inferior right mastoid air cells, without discrete organized collection at this time. 2.? Minimal scattered fluid in the right mastoid air cells, without appreciable erosion of the bony septa. Middle ear cavity appears aerated. Medications Administered Discontinued Medications Generic Name Dose Route Start Last Admin Trade Name Freq PRN Reason Stop Dose Admin Diphenhydramine HCl 50 mg 01/01/23 23:32 01/02/23 00:05 Diphenhydramine Hcl 50 Mg/Ml Vial IVPUSH 01/01/23 23:33 50 mg ONCE ONE Administration Famotidine 20 mg 01/01/23 23:32 01/02/23 00:05 Famotidine/Pf 20 Mg/2 Ml Vial IVPUSH 01/01/23 23:33 20 mg ONCE ONE Administration Sodium Chloride 1,000 mls @ 999 mls/hr 01/01/23 22:52 01/02/23 01:18 Ns IVCONT 01/01/23 23:52 Infused .Q1H1M ONE Infusion Clindamycin Phosphate 300 mg in 50 mls @ 100 mls/hr 01/01/23 22:52 01/02/23 00:45 Cleocin IV 01/01/23 23:21 Infused ONCE ONE Infusion Iohexol 85 ml 01/02/23 00:39 01/02/23 00:40 Iohexol 350 Mg/Ml 100 Ml Infus..Btl IV 01/02/23 00:40 85 ml ONCE ONE Administration Methylprednisolone Sodium Succinate 125 mg 01/01/23 23:32 01/02/23 00:05 Methylprednisolone Sod Succ 125 Mg/2 Ml Vial IVPUSH 01/01/23 23:33 125 mg ONCE ONE Administration Critical Care Time Critical Care Time Critical Care Time: Yes Total Critical Care Time: 60 Attestation: I have personally provided critical care time. Time includes review of lab data, radiology results, discussion with consultants, and monitoring for potential decompensation. Intervention performed as documented. Discharge Plan Discharge Clinical Impression: Alcoholic intoxication, Substance abuse, Otitis externa, Acute mastoiditis Patient Disposition: [facility] Transfer Details: [facility] ED to ED transfer Prescriptions: No Action No Known Home Meds
--- NOTE | 2023-01-02 02:06 | MHC.EDTECH ---
Call out to [facility] transfer line @[phone] spoke to Mckenzie who informed me they are not accepting any medical transfers
--- NOTE | 2023-01-02 02:06 | MHC.EDTECH ---
Call out to [facility] @[phone] spoke to Odalis who took demographics. Awaiting call back from ED.
[2023-01-02 02:26] LABS: Lactic Acid 0.7 mmol/L (0.5-2.0)
[2023-01-02 02:29] LABS: COVID-19 Test Negative (Negative); IDNOW Serial# BCCEAD1C
--- NOTE | 2023-01-02 02:33 | MHC.EDTECH ---
call out to [facility] transfer line @[phone]
--- NOTE | 2023-01-02 02:34 | MHC.EDTECH ---
sergio faxed @[phone] to [phone]
[2023-01-02 02:35] LABS: C Reactive Protein 0.47 mg/dL (< or = 0.50)
[2023-01-02 02:51] LABS: Erythrocyte Sedimentation Rate 11 MM/HR (0-15)
--- NOTE | 2023-01-02 02:57 | MHC.EDTECH ---
Call out to [facility] for BLS transport to [facility] ED @2675 ETA of 30 mins
--- NOTE | 2023-01-02 03:52 | PC.NURSE ---
this rn assumed care ofr pt @ 0330. rn to rn report given mecca kramer in ED. accepting provider Dr Loyola. pt calm and cooperative. report given to ems upon arrival for transfer
== END 2023-01-02 03:55 | disposition short-term general hospital (02) ==
PROVIDERS: Emergency Provider Emergency Medicine
DX: F10.220 Alcohol dependence with intoxication, uncomplicated (principal); Y90.0 Blood alcohol level of less than 20 mg/100 ml; H60.91 Unspecified otitis externa, right ear; H70.001 Acute mastoiditis without complications, right ear; F19.10 Other psychoactive substance abuse, uncomplicated; Z20.822 Contact with and (suspected) exposure to COVID-19
CPT/HCPCS: 36415; 70481; 80048; 80076; 80307; 82077; 83605; 85025; 85652; 86140; 87040; 87635; 96361; 96365; 96375; 99285; J1200; J2930; Q9967

== ENCOUNTER 2023-01-20 09:39 | Outpatient (REF) | payer MEDICAID, SELFPAY | END 2023-01-20 09:40 | disposition home or self-care (01) | LOC: HO.HOSX 09:39 | PROVIDERS: Visit Provider Physician Assistant | DX: Z13.89 Encounter for screening for other disorder (principal) ==

== ENCOUNTER 2023-02-03 16:35 | Emergency (ER) | payer MEDICAID, SELFPAY ==
[2023-02-03 16:46] VITALS: BP 128/82; BP 142/86; PULSE 108; PULSE 99; RESP 18; TEMP 36.9; O2SAT 100; O2SAT 99; BMI 23.5
[2023-02-03 18:36] LABS: MANUAL DIFF FLAG NO
[2023-02-03 18:41] LABS: Basophils Percent Auto 0.4 % (0-2); Eosinophils Absolute Auto 0.3 X10*3/uL (0.0-0.4); Eosinophils Percent Auto 3.4 % (0-4); Hematocrit 43.1 % (42.0-52.0); Hemoglobin 14.7 g/dl (14.0-18.0); Imm Gran Abs Auto 0.02 X10*3/uL (0.00-0.03); Imm Gran Pct Auto 0.2 % (0.0-0.4); Lymphocytes Absolute Auto 1.1 X10*3/uL (1.2-4.9); Lymphocytes Percent Auto 10.9 % (20-40); Mean Corpuscular HGB Conc 34.1 g/dl (31.0-36.0); Mean Corpuscular Hemoglobin 31.8 pg (27.0-33.0); Mean Corpuscular Volume 93.3 fL (80.0-98.0); Mean Platelet Volume 9.5 fL (9.4-12.4); Monocytes Absolute Auto 0.6 X10*3/uL (0.1-1.2); Monocytes Percent Auto 5.9 % (2-11); Neutrophils Percent Auto 79.2 % (45-73); Platelet Count 321 X10*3/uL (160-400); Red Blood Count 4.62 X10*6/uL (4.60-5.80); Red Cell Distribution Width 11.9 % (11.0-16.0); White Blood Count 10.1 X10*3/uL (4.8-10.8)
--- NOTE | 2023-02-03 18:42 | ED.OVERDOSE ---
HPI - Overdose General Chief Complaint: Overdose Stated Complaint: OD Time Seen by Provider: 02/03/23 16:37 Source: patient and EMS Mode of arrival: EMS Limitations: no limitations History of Present Illness HPI Narrative: This is a 47-year-old male brought into the emergency department by EMS for opiate overdose. Patient reports he met somebody on the streets who was smoking crack and ?dope? out of a crack pipe. Patient tells me that all he remembers is sitting down, doing this and then waking up with police by his side. Police gave 8 mg of intranasal Narcan and bagged him. Patient reports he would like detox. Denies visual, auditory and tactile hallucinations. Denies suicidal and homicidal ideation. No medical complaints today Related Data Home Medications Medication Instructions Recorded Confirmed No Known Home Meds 12/23/22 12/23/22 Allergies Allergy/AdvReac Type Severity Reaction Status Date / Time No Known Allergies Allergy Verified 12/23/22 09:43 Review of Systems Review of Systems: Constitutional : No Weight loss, No Fever, No Chills, No Fatigue, No Malaise ENT/Mouth : No sore throat, No Rhinorrhea Eyes: No Eye Pain, No Swelling, No Redness Cardiovascular : No Chest Pain, No SOB, No Dyspnea on Exertion, No Orthopnea, No Edema, No Palpitations Respiratory : No Cough, No Sputum, No Wheezing Gastrointestinal : No Nausea, No Vomiting, No Diarrhea, No Constipation, No abdominal Pain, No Hematochezia, No Melena Genitourinary : No Dysuria, No Urinary Frequency, No Hematuria, Musculoskeletal : No joint pain, No Myalgias, No Joint Swelling Skin : No Skin Lesions, No rash Neuro : No Weakness, No Numbness, No Dizziness, No Headache Psych : No Anxiety/Panic, No Depression All other systems reviewed and are negative Yes all other systems are reviewed and are negative [facility] Past Medical History Attestation statement: The following information was validated with the patient. Source: old records reviewed and nursing notes reviewed Medical History Alcohol abuse Substance abuse Social History Social History Alcohol intake: current Alcohol intake frequency: 0-2 drinks per day Alcohol type: beer and hard liquor Patient Tobacco Use Status: Former Tobacco user Substance Use Type: Crack/Cocaine and Heroin Advance Directives: No Advance Directives Information Provided: No Physical Exam Vital Signs: Vital Signs: Last Vital Signs Temp 98.4 F 02/03/23 16:46 Pulse 99 02/03/23 16:46 Resp 18 02/03/23 16:46 BP 128/82 02/03/23 16:46 Pulse Ox 100 02/03/23 16:46 O2 Del Method Room Air 02/03/23 16:46 BMI result Body Mass Index 23.5 vss Appearance: Alert.? Oriented X3.? No acute distress.? Head: Normocephalic, atraumatic, no step-offs or deformities Eyes: Pupils equal, round and reactive to light.? CVS: Normal heart rate and rhythm.? Pulses normal.? Respiratory: No respiratory distress.? Breath sounds normal.? Abdomen: Soft and nontender.? Skin: Skin warm and dry.? Normal skin color.? Normal skin turgor.? Extremities: No lower extremity edema.? No calf ttp. 5/5 strength to bilateral upper and lower extremities Neuro: Oriented X 3.? No motor deficit.? No sensory deficit. CN 2-12 intact Course Reevaluation(s) Reevaluation #1: CBC appears to be around patient's baseline. Chemistry no acute findings requiring intervention. Positive for fentanyl and cocaine. Negative ethanol. At this time patient to be placed into observation to allow more time to be evaluated by behavioral health team. At time observation was started patient common cooperative no acute distress will continue to monitor. Time: 19:37 Medical Decision Making Medical Decision Making [facility] Narrative: 1844 47-year-old male presents with opiate overdose, but Narcan and BVM prior to arrival. Seeking detox Physical exam benign Likely polysubstance abuse. Will rule out metabolic derangements, although unlikely. Plan medical clearance evaluation by behavioral health team Differential Diagnosis Differential Diagnoses: The differential diagnosis associated with the presentation includes Likely polysubstance abuse. Will rule out metabolic derangements, although unlikely. Admission/Observation Consideration of admission/observation: Escalation of care including admission/observation considered Possible psychiatric Lab Data [facility] Lab Attestation statement: I reviewed the patient's lab results. 02/03/23 18:31 02/03/23 18:31 Labs: Lab Results 02/03/23 02/03/23 02/03/23 Range/Units 18:31 18:31 18:31 WBC 10.1 (4.8-10.8) X10*3/uL RBC 4.62 (4.60-5.80) X10*6/uL Hgb 14.7 (14.0-18.0) g/dl Hct 43.1 (42.0-52.0) % MCV 93.3 (80.0-98.0) fL MCH 31.8 (27.0-33.0) pg MCHC 34.1 (31.0-36.0) g/dl RDW 11.9 (11.0-16.0) % Plt Count 321 (160-400) X10*3/uL MPV 9.5 (9.4-12.4) fL Immature Gran % (Auto) 0.2 (0.0-0.4) % Neut % (Auto) 79.2 H (45-73) % Lymph % (Auto) 10.9 L (20-40) % [place] % (Auto) 5.9 (2-11) % Eos % (Auto) 3.4 (0-4) % Baso % (Auto) 0.4 (0-2) % Lymph # (Auto) 1.1 L (1.2-4.9) X10*3/uL [place] # (Auto) 0.6 (0.1-1.2) X10*3/uL Eos # (Auto) 0.3 (0.0-0.4) X10*3/uL Baso # (Auto) 0.0 (0.0-0.2) X10*3/uL Abs Immat Gran (auto) 0.02 (0.00-0.03) X10*3/uL Absolute Neuts (auto) 8.0 (2.0-8.3) x10*3/uL Absolute Nucleated RBC 0.000 (0.0-0.012) X10*3/uL Nucleated RBC % (auto) 0.0 (0.0-0.2) /100WBC Sodium 140 (135-145) mmol/L Potassium 4.2 (3.3-5.1) mmol/L Chloride 104 (96-108) mmol/L Carbon Dioxide 29 (22-29) mmol/L Anion Gap 11 L (12-20) BUN 11 (9-16) mg/dL Creatinine 0.84 (0.5-1.4) mg/dL Estim Creat Clear Calc 101.6 Estimated GFR > 60 Random Glucose 99 (60-115) mg/dL Calcium 9.6 (8.4-10.2) mg/dL Magnesium 2.2 (1.6-2.6) mg/dL Total Bilirubin 0.6 (0.0-1.0) mg/dL AST 30 (5-37) U/L ALT 17 (0-40) U/L Alkaline Phosphatase 77 (39-117) U/L Total Protein 7.2 (6.5-8.0) g/dL Albumin 4.2 (3.5-5.0) g/dL Urine Opiates Screen Not Detected (Not Detect) Urine Fentanyl Screen POSITIVE H (Not Detect) Ur Barbiturates Screen Not Detected (Not Detect) Ur Phencyclidine Scrn Not Detected (Not Detect) Ur Amphetamines Screen Not Detected (Not Detect) U Benzodiazepines Scrn Not Detected (Not Detect) Urine Cocaine Screen POSITIVE H (Not Detect) U Marijuana (THC) Screen Not Detected (Not Detect) Ethyl Alcohol < 10 mg/dL Core Measures AMI core measures followed: Yes Measure exclusions: not indicated Critical Care Time Critical Care Time Critical Care Time: No Discharge Plan Discharge Clinical Impression: Drug overdose Patient Disposition: Still a Patient Prescriptions: No Action No Known Home Meds
[2023-02-03 19:09] LABS: Alanine Aminotransferase 17 U/L (0-40); Albumin Level 4.2 g/dL (3.5-5.0); Alkaline Phosphatase 77 U/L (39-117); Amphetamine Screen Urine Not Detected (Not Detect); Anion Gap 11 (12-20); Aspartate Amino Transferase 30 U/L (5-37); Barbiturates, Urine Not Detected (Not Detect); Benzodiazepines Screen Urine Not Detected (Not Detect); Bilirubin Total 0.6 mg/dL (0.0-1.0); Blood Urea Nitrogen 11 mg/dL (9-16); Calcium 9.6 mg/dL (8.4-10.2); Cannabinoid Screen Urine Not Detected (Not Detect); Carbon Dioxide 29 mmol/L (22-29); Chloride 104 mmol/L (96-108); Cocaine Screen Urine POSITIVE (Not Detect); Creatinine Clr Calc Pharmacy 101.6; Estimated Glomerular Filt Rate > 60; Ethanol < 10 mg/dL; Fentanyl, urine POSITIVE (Not Detect); Glucose Random 99 mg/dL (60-115); Magnesium 2.2 mg/dL (1.6-2.6); Opiate Screen Urine Not Detected (Not Detect); Phencyclidine Screen Urine Not Detected (Not Detect); Potassium 4.2 mmol/L (3.3-5.1); Sodium 140 mmol/L (135-145); Total Protein 7.2 g/dL (6.5-8.0)
[2023-02-04 05:33] VITALS: BP 131/89; PULSE 76; RESP 18; TEMP 35.7; O2SAT 100
--- NOTE | 2023-02-04 05:36 | PC.NURSE ---
Patient is alert and oriented. Changed over to rahel nichols. Vital signs stable. Patient continuing to state he would like detox. Plan to meet with care team
--- NOTE | 2023-02-04 06:32 | MHC.CARE ---
Jose R denies intentional overdose and he requested to be referred to the Recovery coaches so that he can go to Detox. He reports that this is his fourth overdose and he wants to get help.
--- NOTE | 2023-02-04 09:26 | PC.NURSE ---
tin recovery worker at the bedside
--- NOTE | 2023-02-04 10:09 | HO.SUDE ---
Met with pt in ED18 after pt presented to [facility] after overdose requiring Narcan. Pt laying in bed, eyes closed, easily awakes to voice. Pt reports being unsure of what events led up to ED visit. Pt reports having been in senior care x 11 years and was released approx 1 year ago. Upon release, pt began using heroin, INH, as well as returning to cocaine use, INH. Pt currently using approx 1 bundle heroin daily and a lot of cocaine. Pt also reports 7 24 oz cans of beer daily as well as 7 Fireball nips. Pt reports this is 4th overdose. Pt has been to ATS x 2 within the past year at [facility]. Pt currently reporting withdrawal symptoms including restlessness, feeling hot/cold, anxiety. Pt appears diaphoretic, sheets are damp from sweat. Pt interested in receiving methadone to address withdrawal symptoms while here. Pt interested in ATS, however, would like to go far away. Pt aware bed availability is limited but bedsearch will be conducted. Pt denies questions or concerns at this time. Discussed with Smiley Haynes and ED provider. Plan to administer 20 mg methadone and commence bedsearch.
[2023-02-04] MEDS: methADONE HCl 20 MG/2 ML ORAL.CONC PO (10:16)
--- NOTE | 2023-02-04 10:22 | MHC.RECOVSUP ---
Met with pt in ED18 after pt presented to [facility] after overdose requiring Narcan. Pt watching T.V. upon meeting sitting upright and able to hold a conversation. Pt reports having been in [facility] x 11 years and was released approx 1 year ago. Upon release, pt began using heroin, INH, as well as returning to cocaine use, INH. Pt reports this is 4th overdose. Pt interested in ATS, however, would like to go far away. Pt offered a phone screen for [facility] in [place] but declined as it was still too close for him. Pt goes on to share he is worried about going back to the streets and having a fatal OD and wants help. T/W informed pt that the bed search has been exhausted and [facility] was the only option for him. if he was worried about going back to the street after ATS he could go straight into [facility] but he still feels it wont work when he is in an area he knows. T/W informed pt about sectioning if he is worried about staying in treatment and pt informs he is not interested in sectioning. ATS bed search has been exhausted and pt can dc. Nurse and Provider aware. Pt denies questions or concerns at this time.
--- NOTE | 2023-02-04 11:53 | PHA.MEDREC ---
Pharmacy Consult ? Medication Reconciliation Pharmacy has completed the medication reconciliation.
== END 2023-02-04 12:22 | disposition home or self-care (01) ==
PROVIDERS: Physician Assistant; Emergency Provider Emergency Medicine Emergency Medical Services
DX: T40.1X1A Poisoning by heroin, accidental (unintentional), initial encounter (principal); Y92.9 Unspecified place or not applicable; Z79.899 Other long term (current) drug therapy; Z71.51 Drug abuse counseling and surveillance of drug abuser
CPT/HCPCS: 36415; 80053; 80307; 83735; 85025; 99284

== ENCOUNTER 2023-02-17 12:02 | Emergency (ER) | payer MEDICAID, SELFPAY ==
--- NOTE | ~2023-02-17 | XR_ITS ---
EXAMINATION: XR HAND, LEFT CLINICAL INFORMATION: Acute right hand pain COMPARISON: None available. TECHNIQUE: PA, lateral, and oblique views of the left hand. FINDINGS: It should be noted that the history indicates acute right hand pain and the left hand was imaged. No acute visible fracture or dislocation. Mild multi joint arthritic changes. Joint spaces and alignment are otherwise maintained. Soft tissues are unremarkable. XR/XR hand LT min 3V IMPRESSION: 1. It should be noted that the history indicates acute right hand pain and the left hand was imaged. Correlation for correct laterality. 2. No acute visible fracture or dislocation. 3. Mild multi joint arthritic changes.
--- NOTE | ~2023-02-17 | XR_ITS ---
EXAMINATION: XR ANKLE, RIGHT CLINICAL INFORMATION: Acute on chronic right ankle pain COMPARISON: Right ankle radiograph from 12/23/2022 TECHNIQUE: AP, lateral, and mortise views of the right ankle. FINDINGS: Redemonstration of fracture involving the medial malleolus with slightly increased displacement as compared to prior imaging. Ankle mortise is symmetric. Joint spaces and alignment are otherwise maintained. Soft tissue swelling overlying the medial malleolus. XR/XR ankle RT min 3V IMPRESSION: 1. Redemonstration of fracture involving the medial malleolus with slightly increased displacement as compared to prior imaging. 2. Soft tissue swelling overlying the medial malleolus.
--- NOTE | ~2023-02-17 | XR_ITS ---
EXAMINATION: XR RIBS, RIGHT CLINICAL INFORMATION: Right chest wall pain COMPARISON: None available. TECHNIQUE: 4 views of the right ribs were obtained. FINDINGS: No focal consolidation. No pneumothorax. Trachea is midline. Cardiac mediastinal silhouette is stable. No large pleural effusion. Soft tissues are unremarkable. Osseous structures are unremarkable. No acute visualized right-sided rib fractures. XR/XR ribs RT min 3V w [id number] IMPRESSION: 1. No acute cardiopulmonary process. 2. No acute visualized right-sided rib fractures.
[2023-02-17 12:15] VITALS: BP 125/89; BP 153/100; PULSE 108; PULSE 110; RESP 16; TEMP 37.2; O2SAT 98; O2SAT 99; BMI 25.7
--- NOTE | 2023-02-17 12:48 | PC.NURSE ---
pt changed over into gown and pants, belongings secured with security. pt now endorsing SI and requesting detox. [place] [employer] spokw with patient. Pt now resting comfortably on stretcher, eating food, reports pain in R ankle and L hand
--- NOTE | 2023-02-17 13:30 | PC.NURSE ---
pt belongings in rikion
[2023-02-17 14:03] LABS: MANUAL DIFF FLAG NO
[2023-02-17 14:08] LABS: Basophils Percent Auto 0.4 % (0-2); Eosinophils Percent Auto 0.1 % (0-4); Hematocrit 42.3 % (42.0-52.0); Hemoglobin 13.9 g/dl (14.0-18.0); Imm Gran Abs Auto 0.01 X10*3/uL (0.00-0.03); Imm Gran Pct Auto 0.1 % (0.0-0.4); Lymphocytes Absolute Auto 0.6 X10*3/uL (1.2-4.9); Lymphocytes Percent Auto 8.3 % (20-40); Mean Corpuscular HGB Conc 32.9 g/dl (31.0-36.0); Mean Corpuscular Volume 97.5 fL (80.0-98.0); Mean Platelet Volume 9.6 fL (9.4-12.4); Monocytes Absolute Auto 0.5 X10*3/uL (0.1-1.2); Monocytes Percent Auto 6.3 % (2-11); Neutrophils Absolute Auto 6.6 x10*3/uL (2.0-8.3); Neutrophils Percent Auto 84.8 % (45-73); Platelet Count 279 X10*3/uL (160-400); Red Blood Count 4.34 X10*6/uL (4.60-5.80); Red Cell Distribution Width 12.1 % (11.0-16.0); White Blood Count 7.7 X10*3/uL (4.8-10.8)
[2023-02-17 14:13] LABS: Appearance Urine Turbid; Color Urine Yellow; Glucose Urine UA Negative (Negative); Leukocyte Esterase Urine Small (1+) (Negative); Nitrite Urine Negative (Negative); PH 7.5 (5.0-9.0); Specific Gravity - Urine 1.015 (1.005-1.025); UMIC TRIGGER UACC YES; Urine Blood Negative (Negative); Urine Ketones Negative (Negative); Urine Protein 30 (1+) mg/dL (Neg-Trace)
[2023-02-17 14:23] LABS: Amphetamine Screen Urine Not Detected (Not Detect); Barbiturates, Urine Not Detected (Not Detect); Benzodiazepines Screen Urine Not Detected (Not Detect); Cannabinoid Screen Urine POSITIVE (Not Detect); Cocaine Screen Urine POSITIVE (Not Detect); Fentanyl, urine POSITIVE (Not Detect); Opiate Screen Urine Not Detected (Not Detect); Phencyclidine Screen Urine Not Detected (Not Detect)
--- NOTE | 2023-02-17 14:24 | ED_ITS ---
HPI - Overdose General Chief Complaint: Overdose Stated Complaint: od,narcam given w/good result per ems Time Seen by Provider: 02/17/23 12:18 Source: patient and EMS Mode of arrival: EMS Limitations: no limitations History of Present Illness HPI Narrative: 47-year-old male with history of polysubstance abuse presents after an accidental overdose. Patient denies suicidal or homicidal ideation. Patient has been using multiple street drugs. Last use his was today. He denies any alcohol today but does drink alcohol from time to time. Denies any fevers, chills, cough or mucus production. Denies any headache, nausea vomiting. Does complain of some right-sided chest pain, left hand pain and right ankle pain. Pain is [id number]. Worse with movement. The pain does not radiate. There is no numbness or tingling. Patient reports having fallen recently Related Data Previous Rx's Medication Instructions Recorded buprenorphine 8 mg-naloxone 2 mg 1 film sublingual BID #8 ea 02/18/23 sublingual film (Suboxone) Allergies Allergy/AdvReac Type Severity Reaction Status Date / Time seafood Allergy Difficulty Verified 02/17/23 17:44 Breathing Seasonal Allergies AdvReac Severe Nasal Verified 02/17/23 17:43 congestion Review of Systems Review of Systems: CONSTITUTIONAL: Denies weight loss, fever and chills. HEENT: Denies changes in vision and hearing. RESPIRATORY: Denies SOB and cough. CV: Denies palpitations no CP. GI: Denies abdominal pain, nausea, vomiting and diarrhea. : Denies dysuria and urinary frequency. MSK: + myalgia and joint pain. SKIN: Denies rash and pruritus. NEUROLOGICAL: Denies headache and syncope. PSYCHIATRIC: Denies recent changes in mood. Denies anxiety and depression. All other ROS are negative unless in HPI PMFSH Past Medical History Medical History Alcohol abuse Substance abuse Social History Social History Alcohol intake: current Alcohol intake frequency: a few times a week Alcohol type: beer and hard liquor Patient Tobacco Use Status: Former Tobacco user Substance Use Type: Crack/Cocaine and Heroin Physical Exam Vital Signs: Vital Signs: Last Vital Signs Temp 97.8 F 02/18/23 06:15 Pulse 53 06/09/23 06:15 Resp 12 02/18/23 06:15 BP 134/82 02/18/23 06:15 Pulse Ox 98 02/18/23 06:15 O2 Del Method Room Air 02/18/23 06:15 BMI result Body Mass Index 25.7 GEN: Well developed, no acute distress, alert, oriented HEENT: Normocephalic, atraumatic, normal external ears, nose appears normal, no oropharyngeal edema or exudates Eyes: Normal to appearance Neck: Supple, no lymphadenopathy Respiratory: Talks in complete sentences, no respiratory distress, clear to auscultation bilaterally Cardiovascular: Regular rate and rhythm, no murmurs rubs or gallops Abdomen: Soft, nontender, nondistended, no guarding, no rebound Back: No CVA tenderness Extremities: No clubbing cyanosis or edema, soft tissue swelling right ankle Neurologic: No focal neurologic deficits, cranial nerves 2-12 intact, strength is 5/5 bilaterally Skin: No rash Chest: Right lower chest anterior deformity Course Course Course Narrative: Patient's CT pending care team evaluation. Patient would like to go back to detox for his substance abuse. Will order x-rays to rule out acute traumatic injuries. Medications Administered Discontinued Medications Generic Name Dose Route Start Last Admin Trade Name Freq PRN Reason Stop Dose Admin Acetaminophen 975 mg 02/17/23 14:25 02/17/23 15:37 Acetaminophen 325 Mg Tablet PO 02/17/23 14:26 975 mg ONCE ONE Administration Buprenorphine/Naloxone 2 film 02/18/23 14:14 02/18/23 14:24 Buprenorphine/Naloxone 8/2 Mg Film SUBLINGUAL 02/18/23 14:15 Not Given ONCE ONE Cephalexin HCl 500 mg 02/17/23 14:32 02/17/23 15:37 Cephalexin 500 Mg Capsule PO 02/17/23 14:33 500 mg ONCE ONE Administration Ibuprofen 800 mg 02/17/23 23:02 02/17/23 23:07 Ibuprofen 800 Mg Tablet PO 02/17/23 23:03 800 mg ONCE ONE Administration Ibuprofen 600 mg 02/18/23 12:56 02/18/23 13:06 Ibuprofen 600 Mg Tablet PO 02/18/23 12:57 600 mg ONCE ONE Administration Nicotine Polacrilex 2 mg 02/17/23 17:48 02/17/23 17:53 Nicotine Polacrilex 2 Mg Gum BUCCAL 02/17/23 17:49 2 mg ONCE ONE Administration Medical Decision Making Medical Decision Making [facility] Narrative: Patient presents with accidental overdose. Denies suicidal homicidal ideation. Last use was earlier today. He does use alcohol and other drugs. Examination is nonfocal. There is some evidence of some traumatic injuries including right ankle, right chest wall and left hand. Will order x-rays to further evaluate. Care team has been ordered. Differential Diagnosis Differential Diagnoses: The differential diagnosis associated with the presentation includes (Contusion, sprain, strain, substance abuse, frequent falls, depression, anxiety) Consult Healthcare Provider Management of the patient was discussed with: Behavioral Health Provider Lab Data [facility] Lab Attestation statement: I reviewed the patient's lab results. 02/17/23 13:56 02/17/23 13:56 Labs: Lab Results 02/17/23 02/17/23 02/17/23 Range/Units 13:56 13:56 13:56 WBC 7.7 (4.8-10.8) X10*3/uL RBC 4.34 L (4.60-5.80) X10*6/uL Hgb 13.9 L (14.0-18.0) g/dl Hct 42.3 (42.0-52.0) % MCV 97.5 (80.0-98.0) fL MCH 32.0 (27.0-33.0) pg MCHC 32.9 (31.0-36.0) g/dl RDW 12.1 (11.0-16.0) % Plt Count 279 (160-400) X10*3/uL MPV 9.6 (9.4-12.4) fL Immature Gran % (Auto) 0.1 (0.0-0.4) % Neut % (Auto) 84.8 H (45-73) % Lymph % (Auto) 8.3 L (20-40) % [place] % (Auto) 6.3 (2-11) % Eos % (Auto) 0.1 (0-4) % Baso % (Auto) 0.4 (0-2) % Lymph # (Auto) 0.6 L (1.2-4.9) X10*3/uL [place] # (Auto) 0.5 (0.1-1.2) X10*3/uL Eos # (Auto) 0.0 (0.0-0.4) X10*3/uL Baso # (Auto) 0.0 (0.0-0.2) X10*3/uL Abs Immat Gran (auto) 0.01 (0.00-0.03) X10*3/uL Absolute Neuts (auto) 6.6 (2.0-8.3) x10*3/uL Absolute Nucleated RBC 0.000 (0.0-0.012) X10*3/uL Nucleated RBC % (auto) 0.0 (0.0-0.2) /100WBC Sodium 142 (135-145) mmol/L Potassium 3.7 (3.3-5.1) mmol/L Chloride 106 (96-108) mmol/L Carbon Dioxide 28 (22-29) mmol/L Anion Gap 12 (12-20) BUN 9 (9-16) mg/dL Creatinine 0.96 (0.5-1.4) mg/dL Estim Creat Clear Calc 79.6 Estimated GFR > 60 Random Glucose 107 (60-115) mg/dL Calcium 9.3 (8.4-10.2) mg/dL Total Bilirubin 0.4 (0.0-1.0) mg/dL AST 16 (5-37) U/L ALT 10 (0-40) U/L Alkaline Phosphatase 70 (39-117) U/L Total Protein 6.5 (6.5-8.0) g/dL Albumin 3.7 (3.5-5.0) g/dL Urine Color Urine Appearance Urine pH (5.0-9.0) Ur Specific Sherrill (1.005-1.025) Urine Protein (Neg-Trace) mg/dL Urine Glucose (UA) (Negative) mg/dL Urine Ketones (Negative) mg/dL Urine Blood (Negative) Urine Nitrite (Negative) Ur Leukocyte Esterase (Negative) Urine RBC (0-2) /HPF Urine WBC (0-5) /HPF Ur Squamous Epith Cells (0-2) /HPF Urine Bacteria (None Seen) Hyaline Casts (0-2) /LPF Urine Opiates Screen (Not Detect) Urine Fentanyl Screen (Not Detect) Ur Barbiturates Screen (Not Detect) Ur Phencyclidine Scrn (Not Detect) Ur Amphetamines Screen (Not Detect) U Benzodiazepines Scrn (Not Detect) Urine Cocaine Screen (Not Detect) U Marijuana (THC) Screen (Not Detect) Ethyl Alcohol < 10 mg/dL COVID-19 (HYUN) Negative (Negative) COVID-19 Clin Com See Note 02/17/23 02/17/23 Range/Units 13:56 13:56 WBC (4.8-10.8) X10*3/uL RBC (4.60-5.80) X10*6/uL Hgb (14.0-18.0) g/dl Hct (42.0-52.0) % MCV (80.0-98.0) fL MCH (27.0-33.0) pg MCHC (31.0-36.0) g/dl RDW (11.0-16.0) % Plt Count (160-400) X10*3/uL MPV (9.4-12.4) fL Immature Gran % (Auto) (0.0-0.4) % Neut % (Auto) (45-73) % Lymph % (Auto) (20-40) % [place] % (Auto) (2-11) % Eos % (Auto) (0-4) % Baso % (Auto) (0-2) % Lymph # (Auto) (1.2-4.9) X10*3/uL [place] # (Auto) (0.1-1.2) X10*3/uL Eos # (Auto) (0.0-0.4) X10*3/uL Baso # (Auto) (0.0-0.2) X10*3/uL Abs Immat Gran (auto) (0.00-0.03) X10*3/uL Absolute Neuts (auto) (2.0-8.3) x10*3/uL Absolute Nucleated RBC (0.0-0.012) X10*3/uL Nucleated RBC % (auto) (0.0-0.2) /100WBC Sodium (135-145) mmol/L Potassium (3.3-5.1) mmol/L Chloride (96-108) mmol/L Carbon Dioxide (22-29) mmol/L Anion Gap (12-20) BUN (9-16) mg/dL Creatinine (0.5-1.4) mg/dL Estim Creat Clear Calc Estimated GFR Random Glucose (60-115) mg/dL Calcium (8.4-10.2) mg/dL Total Bilirubin (0.0-1.0) mg/dL AST (5-37) U/L ALT (0-40) U/L Alkaline Phosphatase (39-117) U/L Total Protein (6.5-8.0) g/dL Albumin (3.5-5.0) g/dL Urine Color Yellow Urine Appearance Turbid Urine pH 7.5 (5.0-9.0) Ur Specific Sherrill 1.015 (1.005-1.025) Urine Protein 30 (1+) H (Neg-Trace) mg/dL Urine Glucose (UA) Negative (Negative) mg/dL Urine Ketones Negative (Negative) mg/dL Urine Blood Negative (Negative) Urine Nitrite Negative (Negative) Ur Leukocyte Esterase Small (1+) H (Negative) Urine RBC 0-2 (0-2) /HPF Urine WBC 11-20 H (0-5) /HPF Ur Squamous Epith Cells 0-2 (0-2) /HPF Urine Bacteria 1+ (None Seen) Hyaline Casts 6-10 (0-2) /LPF Urine Opiates Screen Not Detected (Not Detect) Urine Fentanyl Screen POSITIVE H (Not Detect) Ur Barbiturates Screen Not Detected (Not Detect) Ur Phencyclidine Scrn Not Detected (Not Detect) Ur Amphetamines Screen Not Detected (Not Detect) U Benzodiazepines Scrn Not Detected (Not Detect) Urine Cocaine Screen POSITIVE H (Not Detect) U Marijuana (THC) Screen POSITIVE H (Not Detect) Ethyl Alcohol mg/dL COVID-19 (HYUN) (Negative) COVID-19 Clin Com Independent Interpretation I performed an independent interpretation of an: Plain X-Ray (Right ribs: No pneumothorax not, no acute cardiopulmonary disease, no definite rib fracture, left hand: No acute fracture traumatic injury, right ankle, medial malleolus fracture seen previously now mildly displaced) Prescription Management I considered prescription management with: Pain Medication Chronic Conditions Patient?s care impacted by: Other (Polysubstance abuse) Discharge Plan Discharge Clinical Impression: Polysubstance abuse, Drug overdose, Right malleolar fracture Patient Disposition: Home, Self-Care Instructions: Ankle Fracture (ED), Polysubstance Abuse (ED) Additional Instructions: Follow-up with [facility] as outpatient Wear ortho boot for support Prescriptions: New buprenorphine-naloxone [Suboxone] 8-2 mg film 1 film sublingual BID Qty: 8 0RF Interventions: ED Discharge Assessment Last Done: 02/18/23 14:44 Discharge Date/Time: 02/18/23 14:49
[2023-02-17 14:27] LABS: Bacteria Urine 1+ (None Seen); RBC Urine 0-2 /HPF (0-2); Squamous Epithelial Cell Urine 0-2 /HPF (0-2); UACC Culture Trigger YES
[2023-02-17 14:29] LABS: COVID-19 Test Negative (Negative); IDNOW Serial# 08D9AD1C
[2023-02-17 14:30] LABS: Alanine Aminotransferase 10 U/L (0-40); Albumin Level 3.7 g/dL (3.5-5.0); Alkaline Phosphatase 70 U/L (39-117); Anion Gap 12 (12-20); Aspartate Amino Transferase 16 U/L (5-37); Bilirubin Total 0.4 mg/dL (0.0-1.0); Blood Urea Nitrogen 9 mg/dL (9-16); Calcium 9.3 mg/dL (8.4-10.2); Carbon Dioxide 28 mmol/L (22-29); Chloride 106 mmol/L (96-108); Creatinine Clr Calc Pharmacy 79.6; Estimated Glomerular Filt Rate > 60; Ethanol < 10 mg/dL; Glucose Random 107 mg/dL (60-115); Potassium 3.7 mmol/L (3.3-5.1); Sodium 142 mmol/L (135-145); Total Protein 6.5 g/dL (6.5-8.0)
[2023-02-17 15:00] VITALS: BP 116/55; PULSE 89; RESP 14; TEMP 37.4; O2SAT 100
[2023-02-17] MEDS: cephALEXin 500 MG CAPSULE PO (15:37)
[2023-02-17] MEDS: Acetaminophen 325 MG TABLET 975 MG PO (15:37)
[2023-02-17 16:00] VITALS: BP 126/100; PULSE 91; RESP 16; TEMP 36.6; O2SAT 98
--- NOTE | 2023-02-17 16:10 | MHC.EDTECH ---
THIS PCT ASSUMED CARE OF PT AT 1500 ,VITALS SIGN TAKEN ,PT HAD A SALAD ,AN ICE CREAM AND 2 CAN JUANJOSE JANET FOR SNACK .
--- NOTE | 2023-02-17 16:47 | HO.SUDE ---
This headline writer met w/ patient, patient reports [employer] using daily 20 nips fireball, 3-4 cans beer, smoking, 1 bundle daily heroin. Pt reports first started using opiates approximately one year ago. Pt reports history of 5 overdoses. Patient reports has never been on MAT. This headline writer reviewed medications for opiate use, pt states not interested in MOUD. PT reports no history of treatment, pt states was in long term for 11 years, prior to one year ago, when pt states first started using illicit opiates. Pt requesting detox at this time, pt interested in detox in [facility] only. This headline writer reviewed detox bedsearch process with patient, patient verbalized understanding.
--- NOTE | 2023-02-17 16:55 | MHC.RECOVSUP ---
ATS bed search has been exhausted with no availability at [facility], [place], [place], [facility], [place], or [facility].
[2023-02-17] MEDS: Nicotine Polacrilex 2 MG GUM BUCCAL (17:53)
[2023-02-17] MEDS: Ibuprofen 800 MG TABLET PO (23:07)
--- NOTE | 2023-02-18 05:56 | PC.NURSE ---
Patient slept through the night, no distress observed/reported, med rec completed/currently not on any medication, behavior non concerning, labs completed/resulted, no safety concerns at this time, disposition per recovery team is ATS bed search, will continue to monitor.
[2023-02-18 06:15] VITALS: BP 134/82; PULSE 53; RESP 12; TEMP 36.6; O2SAT 98
--- NOTE | 2023-02-18 10:46 | MHC.RECOVSUP ---
Addendum entered by Michael Guzman 02/18/23 13:55: Pt informs he is interested in [facility]. Original Note: ATS referral sent to [facility].
[2023-02-18] MEDS: Ibuprofen 600 MG TABLET PO (13:06)
--- NOTE | 2023-02-18 14:37 | MHC.RECOVRN ---
Met with pt in [facility] to discuss MOUD. Pt laying in bed, awake, alert, easily engages in conversation. Pt reports using heroin, 1 bundle daily, INH; cocaine, up to 3 grams daily, INH; alcohol, 7 nips Fireball as well as 7 24 oz beers daily, all x 1 year. Pt currently experiencing rhinorrhea, body aches, chills, and yawning. Pt is interested in Suboxone initiation and follow up with the [facility]. Pt educated regarding medication and induction methods, plan for pt to initiate later today when withdrawal symptoms worsen. Pt denies questions or concerns related to MOUD or initiation. Prescription to be sent to [facility]. Follow up with [facility] Wednesday 02/21 at 3PM. Discussed with Smiley Haynes APRN. ED RN and provider aware.
== END 2023-02-18 14:49 | disposition home or self-care (01) ==
PROVIDERS: Emergency Provider Emergency Medicine
DX: F19.10 Other psychoactive substance abuse, uncomplicated (principal); T50.911A Poisoning by multiple unspecified drugs, medicaments and biological substances, accidental (unintentional), initial encounter; Y92.9 Unspecified place or not applicable; S82.51XA Displaced fracture of medial malleolus of right tibia, initial encounter for closed fracture; W19.XXXA Unspecified fall, initial encounter; Z20.822 Contact with and (suspected) exposure to COVID-19; Y93.9 Activity, unspecified; Y99.9 Unspecified external cause status
CPT/HCPCS: 36415; 71101; 73130; 73610; 80053; 80307; 81001; 85025; 87086; 87635; 99285

== ENCOUNTER 2023-04-23 16:33 | Emergency (ER) | payer MEDICAID, SELFPAY ==
[2023-04-23 16:37] VITALS: PULSE 124; O2SAT 99
--- NOTE | 2023-04-23 16:37 | ED.GENADULT ---
HPI - General Adult General Chief complaint: Overdose Stated complaint: OVERDOSE 8MG NARCAN Time Seen by Provider: 04/23/23 16:37 Source: patient and EMS Mode of arrival: EMS Limitations: no limitations History of Present Illness HPI narrative: 47 y/o M healthy male presents via EMS after being found unresponsive on the sidewalk. Per EMS the patient was given Narcan by bystanders and became alert and oriented. Patient presents A&Ox4. Patient presents with no acute complaints. Patient denies any chest pain, shortness of breath, headache, N/V/D. Patient denies suicidal or homicidal ideation. Severity: mild Relieving factors: none Exacerbating factors: none Associated symptoms: denies other symptoms Treatments prior to arrival: none Related Data Previous Rx's Medication Instructions Recorded buprenorphine 8 mg-naloxone 2 mg 1 film sublingual BID #8 ea 02/18/23 sublingual film (Suboxone) Allergies Allergy/AdvReac Type Severity Reaction Status Date / Time seafood Allergy Difficulty Verified 04/23/23 16:38 Breathing Seasonal Allergies AdvReac Severe Nasal Verified 04/23/23 16:38 congestion Review of Systems Constitutional: Constitutional: Reports no additional constitutional complaints, Denies chills, Denies fever(s) and Denies night sweats Eyes: Eyes: Reports no additional eye complaints, Denies blurry vision, Denies change in vision, Denies diplopia, Denies eye discharge, Denies loss of vision and Denies eye pain ENT: Denies dizziness Cardiovascular: Cardiovascular: Reports no additional cardiovascular complaints, Denies chest pain, Denies lightheadedness, Denies Loss of Consciousness and Denies dyspnea Respiratory: Respiratory: Reports no additional respiratory complaints and Denies dyspnea Gastrointestinal: Gastrointestinal: Reports no additional gastrointestinal complaints, Denies abdominal pain, Denies melena, Denies hematochezia, Denies change in bowel habits and Denies change in stool character Genitourinary: Genitourinary: Reports no additional male genitourinary complaints, Denies hematuria, Denies oliguria, Denies difficulty urinating, Denies dysuria, Denies urinary frequency, Denies urinary hesitancy, Denies urinary incontinence and Denies urinary urgency Musculoskeletal: Musculoskeletal: Reports no additional musculoskeletal complaints, Denies numbness and Denies tingling Neurologic: Denies dizziness, Denies loss of vision, Denies numbness and Denies tingling Psychiatric: Psychiatric: Reports no additional psychiatric complaints Endocrine: Endocrine: Reports no additional endocrine complaints Hematologic/Lymphatic: Hematologic/Lymphatic: Reports no additional hematologic/lymphatic complaints Allergic/Immunologic: Allergic/Immunologic: Reports no additional allergic/immunologic complaints [facility] Past Medical History Attestation statement: The following information was validated with the patient. Source: old records reviewed and nursing notes reviewed Medical History Alcohol abuse Substance abuse Social History Social History Alcohol intake: current Alcohol intake frequency: a few times a week Alcohol type: beer and hard liquor Patient Tobacco Use Status: Former Tobacco user Smoked in Last 30 Days: No Use of substances other than those prescribed or required for medical reasons: Yes Substance Use Type: Crack/Cocaine and Heroin Advance Directives: No Advance Directives Information Provided: No Physical Exam ED Vital Signs: Vital Signs - 24 hr 04/23/23 16:40 04/23/23 19:54 Temperature 96.7 F L 97.6 F Pulse Rate 103 H 90 Respiratory Rate 14 18 Blood Pressure 106/65 131/63 Pulse Oximetry 97 100 Oxygen Delivery Method Room Air Room Air BMI result Body Mass Index 20.9 Const General: cooperative, no acute distress, alert and awake Nutritional Appearance: well nourished Orientation/consciousness: patient oriented x3 Limitations: no limitations HENMT Head: Yes normal to inspection and Yes atraumatic Ears: hearing grossly normal bilaterally and external ears normal General nose exam: Normal external nose present, no nasal discharge noted and no epistaxis Face and sinus: Yes normal facial exam, No abrasion and No laceration Mouth: Normal oral and palatal mucosa present, no drooling and no muffled voice Eyes General: appearance normal, both eyes and all related structures Periorbital: periorbital findings normal Eyelids: Yes eyelids normal Conjunctivae: conjunctivae normal Pupils: Equal, round and reactive pupils present EOM: EOMs intact bilaterally Neck Neck: Yes normal visual inspection, Yes full ROM and Yes no lymphadenopathy Chest Chest palpation & inspection: normal inspection of the chest Resp Effort & Inspection: normal respiratory effort and able to speak in complete sentences Auscultation: clear to auscultation bilaterally Cardio Rate: regular rate Rhythm: regular rhythm GI Inspection: Yes normal to inspection Palpation (GI): Soft to palpation, not firm, nontender and no guarding Neuro General: patient oriented x3 and moves all extremities Cranial nerves: Yes Equal, round and reactive pupils present Cognition (Neuro): normal cognition Motor exam (neuro): 5/5 motor strength present throughout Sensory Exam: Normal double simultaneous stimulation for sensation Coordination: [id number] test normal Extrem General: Yes normal to inspection, Yes full ROM and Yes capillary refill normal Psych Appearance: grossly normal Mental Status: mental status grossly normal Affect: normal affect Attitude: cooperative Thought process: Normal thought process present Thought content: Normal thought content present Insight: Good insight present (Psych) Medications Administered Discontinued Medications Generic Name Dose Route Start Last Admin Trade Name Freq PRN Reason Stop Dose Admin Naloxone HCl 8 mg 04/23/23 17:31 04/23/23 19:51 Naloxone Hcl Nasal Take Home 4 Mg [place] NOSTRILALT 04/23/23 17:32 8 mg ONCE ONE Administration Medical Decision Making Medical Decision Making MDM Narrative: Patient is a 47 year old assigned male at with a history of substance abuse presenting to the emergency department today after an accidental overdose. Patient's physical exam was unremarkable. I explained my physical exam findings to the patient. I answered all questions asked by the patient. Patient was given take home narcan. I stressed the importance of the patient taking his medication as prescribed. I stressed the importance of the patient following up with his primary care provider. I stressed the importance of the patient returning to the emergency department immediately if his symptoms were to worsen or if he were to develop any dizziness, shortness of breath, difficulty breathing, chest pain, blurry vision, loss of vision, nausea, vomiting, abdominal pain, fever, chills, back pain, or any other complaints. Patient verbalized agreement and understanding with this treatment plan and discharge. Differential Diagnosis Differential Diagnoses: The differential diagnosis associated with the presentation includes Accidental overdose Independent Historian Clinical information obtained from an independent historian. History obtained from or confirmed by: EMS (EMS provided additional history and confirmed the history provided by the patient. ) Prescription Management I considered prescription management with: Other (patient given take home narcan) Chronic Conditions Patient?s care impacted by: Other (heroin use) Social Determinants Patient?s care significantly limited by Social Determinants of Health including: Other Social Determinant of Health (heroin use) Discharge Plan Discharge Clinical Impression: Drug overdose Patient Disposition: Home, Self-Care Instructions: Adult Overdose (ED) Additional Instructions: Please stop using illicit drugs. If you choose to use illicit drugs, please do not do so alone. Follow up with your primary care provider. Return to the emergency department immediately if your symptoms worsen or if you develop any dizziness, shortness of breath, difficulty breathing, chest pain, blurry vision, loss of vision, nausea, vomiting, abdominal pain, fever, chills, back pain, or any other complaints. Prescriptions: No Action buprenorphine-naloxone [Suboxone] 8-2 mg film 1 film sublingual BID Qty: 8 0RF Referrals: [facility] [Provider Group] (Call to establish and follow up with a primary care provider. If you already have a primary care provider, please follow up with them.) [facility] [Provider Group] (Call to establish and follow up with a primary care provider. If you already have a primary care provider, please follow up with them.) [facility] [Provider Group] (Call to establish and follow up with a primary care provider. If you already have a primary care provider, please follow up with them.) Interventions: ED Discharge Assessment Last Done: 04/23/23 20:07 Discharge Date/Time: 04/23/23 20:09 Print Language: Turkmen
[2023-04-23 16:40] VITALS: BP 106/65; PULSE 103; RESP 14; TEMP 35.9; O2SAT 97; BMI 20.9
--- NOTE | 2023-04-23 18:47 | PC.NURSE ---
pt irlanda, oriented x 4, vss, 8mg IN narcan administered by bystander in field, awake on EMS arrival. pt reports that he thought he was just smoking crack, denies SI/HI. changed over by security, belongings in decon.
[2023-04-23] MEDS: Naloxone HCl Nasal TAKE HOME 4 MG SPRAY 8 MG NOSTRILALT (19:51)
[2023-04-23 19:54] VITALS: BP 131/63; PULSE 90; RESP 18; TEMP 36.4; O2SAT 100
--- NOTE | 2023-04-23 19:57 | MHC.EDTECH ---
This tech assumed care of patient at 1900, vitals were taken and are within normal limits, patient is awaiting discharge at this time.
== END 2023-04-23 20:09 | disposition home or self-care (01) ==
PROVIDERS: Emergency Provider Emergency Medicine
DX: T65.91XA Toxic effect of unspecified substance, accidental (unintentional), initial encounter (principal); Y92.9 Unspecified place or not applicable
CPT/HCPCS: 99283; 99284

== ENCOUNTER 2023-04-24 05:42 | Emergency (ER) | payer MEDICAID, SELFPAY ==
[2023-04-24 05:47] VITALS: BP 151/95; PULSE 109; RESP 18; TEMP 36.3; O2SAT 98; BMI 21.1
== END 2023-04-24 06:38 | disposition left against medical advice (07) ==
PROVIDERS: Emergency Provider Emergency Medicine
DX: H57.12 Ocular pain, left eye (principal)
CPT/HCPCS: 99281

== ENCOUNTER 2023-04-24 12:56 | Emergency (ER) | payer MEDICAID, SELFPAY ==
[2023-04-24 13:02] VITALS: BP 116/81; PULSE 73; RESP 16; TEMP 36.3; O2SAT 96; BMI 20.8
--- NOTE | 2023-04-24 13:03 | ED_ITS ---
HPI - General Adult General Chief complaint: Psychiatric Symptoms Stated complaint: ETOH/Depressed Time Seen by Provider: 04/24/23 14:44 Source: patient Mode of arrival: ambulatory Limitations: no limitations History of Present Illness HPI narrative: 47-year-old male with a history of depression, PTSD, alcohol use disorder, polysubstance use disorder who presents emergency department for evaluation of increased depression, increased PTSD and requesting detox from alcohol, cocaine and heroin use. The patient states that he drinks ice house beer 24 oz cans, 6- 7 per day. States his last drink was 2 hours prior to coming to the emergency department. He also states that he uses crack cocaine and snorts heroin daily. Patient last used prior to coming to the emergency department. He was seen here in the emergency department yesterday for accidental opiate overdose treated with Narcan. Patient states that his mind is racing and his PTSD is acting up. He states that he is feeling very depressed as well. He denies homicidal or suicidal ideation. He states that when he stops drinking alcohol he does get the shakes but he has never had delirium tremens or alcohol withdrawal seizures. Related Data Home Medications Medication Instructions Recorded Confirmed No Known Home Meds 04/24/23 04/24/23 Allergies Allergy/AdvReac Type Severity Reaction Status Date / Time seafood Allergy Difficulty Verified 04/24/23 05:47 Breathing Seasonal Allergies AdvReac Severe Nasal Verified 04/24/23 05:47 congestion Review of Systems Review of Systems: Yes all other systems are reviewed and are negative [facility] Past Medical History [facility] Narrative: Past medical history: PTSD, depression, alcohol use disorder, heroin use disorder, cocaine use disorder. Social history: He does smoke cigarettes. He does drink Icehouse beer 24 oz cans, 6-7 cans per day. He uses crack cocaine and uses intranasal heroin daily. Patient did overdose yesterday and was treated with Narcan by bystanders, seen in the emergency department. Medical History Alcohol abuse Substance abuse Social History Social History Alcohol intake: current Alcohol intake frequency: a few times a week Alcohol type: beer and hard liquor Patient Tobacco Use Status: Former Tobacco user Smoked in Last 30 Days: Yes Use of substances other than those prescribed or required for medical reasons: Yes Substance Use Type: Crack/Cocaine and Heroin Advance Directives: No Advance Directives Information Provided: Yes Physical Exam ED Vital Signs: Vital Signs - 24 hr 04/24/23 13:02 04/24/23 20:36 Temperature 97.4 F 97.4 F Pulse Rate 73 72 Respiratory Rate 16 16 Blood Pressure 116/81 108/74 Pulse Oximetry 96 97 Oxygen Delivery Method Room Air Room Air BMI result Body Mass Index 20.8 Vital signs were normal Exam: General: Patient is somnolent but arousable, he was falling asleep during my interview. He does have a strong odor of alcohol on his breath Head: Normocephalic, atraumatic EENT: PERRL, Lids normal, sclera normal, conjunctiva normal, nose normal , ears normal, throat without erythema or exudates Neck: Supple, no adenopathy, trachea midline and nontender Lung: breath sounds symmetric, no wheezing, rales or rhonchi Chest: symmetric movement, nontender Heart: regular rate and rhythm, normal S1, S2 no murmurs or rubs Abdomen: soft, non-tender, nondistended, normal bowel sounds Back: no vertebral tenderness, no CVAT Extremities: no deformities, moves all extremities symmetrically Skin: no rashes, no lesion, normal color and warmth Neuro: Awake, alert, oriented, normal speech, cranial nerves intact, moves all extremities symmetrically Psych: Pleasant, cooperative Medical Decision Making Medical Decision Making MDM Narrative: 47-year-old male with history of depression, PTSD, alcohol use disorder, heroin use disorder and crack cocaine use disorder who presents emergency department for evaluation of increased depression, increased PTSD and requesting detox for alcohol, cocaine and heroin use disorder. Patient drinks a significant amount of high alcohol content beer daily, uses crack cocaine and heroin daily. He does appear to be intoxicated at this time. He states that he does get shakes when he stops drinking but has never had delirium tremens or alcohol withdrawal seizures. The following evaluation was ordered: CBC, CMP, ethanol level, urine drug screen, urinalysis, COVID-19. I ordered a CIWA scale every 4 hours and the patient was also ordered to get Ativan 2 mg q.2 hours p.r.n. alcohol withdrawal symptoms. 1703: Start physician observation The patient's laboratory evaluation was unremarkable except for a urine drug screen which was positive for opiates, fentanyl, cocaine and THC. The patient was seen by the recovery counselor and given his overdose yesterday, was felt that he should be kept in the emergency department [facility] until tomorrow when a search for a detox program can be undertaken. Differential Diagnosis Differential Diagnoses: The differential diagnosis associated with the presentation includes Differential diagnosis includes but is not limited to depression, anxiety, PTSD flare, alcohol intoxication, electrolyte abnormalities, urinary tract infection , anemia Admission/Observation Consideration of admission/observation: Escalation of care including admission/observation considered Consult Healthcare Provider Management of the patient was discussed with: Commercial Installer (Recovery counselor) Lab Data My interpretation patient's laboratory evaluation is as follows: Urinalysis was positive for protein is, negative for nitrates, positive for leukocyte esterase. Microscopic revealed 0-2 RBCs,, 21-50 WBCs, 0-2 squamous cells, no bacteria- this is not consistent with a urinary tract infection and I would only treat him with antibiotics of his culture was positive. Urine tox screen was positive for opiates, fentanyl, cocaine and THC. Alcohol was below detectable limits 04/24/23 16:10 04/24/23 16:10 Labs: Lab Results 04/24/23 04/24/23 04/24/23 Range/Units 14:13 14:13 16:10 WBC 7.0 (4.8-10.8) X10*3/uL RBC 4.21 L (4.60-5.80) X10*6/uL Hgb 13.6 L (14.0-18.0) g/dl Hct 40.7 L (42.0-52.0) % MCV 96.7 (80.0-98.0) fL MCH 32.3 (27.0-33.0) pg MCHC 33.4 (31.0-36.0) g/dl RDW 12.7 (11.0-16.0) % Plt Count 259 (160-400) X10*3/uL MPV 9.6 (9.4-12.4) fL Immature Gran % (Auto) 0.3 (0.0-0.4) % Neut % (Auto) 62.9 (45-73) % Lymph % (Auto) 25.4 (20-40) % Carlton % (Auto) 9.8 (2-11) % Eos % (Auto) 1.3 (0-4) % Baso % (Auto) 0.3 (0-2) % Lymph # (Auto) 1.8 (1.2-4.9) X10*3/uL Carlton # (Auto) 0.7 (0.1-1.2) X10*3/uL Eos # (Auto) 0.1 (0.0-0.4) X10*3/uL Baso # (Auto) 0.0 (0.0-0.2) X10*3/uL Abs Immat Gran (auto) 0.02 (0.00-0.03) X10*3/uL Absolute Neuts (auto) 4.4 (2.0-8.3) x10*3/uL Absolute Nucleated RBC 0.000 (0.0-0.012) X10*3/uL Nucleated RBC % (auto) 0.0 (0.0-0.2) /100WBC Sodium (135-145) mmol/L Potassium (3.3-5.1) mmol/L Chloride (96-108) mmol/L Carbon Dioxide (22-29) mmol/L Anion Gap (12-20) BUN (9-16) mg/dL Creatinine (0.5-1.4) mg/dL Estim Creat Clear Calc Estimated GFR Random Glucose (60-115) mg/dL Calcium (8.4-10.2) mg/dL Total Bilirubin (0.0-1.0) mg/dL AST (5-37) U/L ALT (0-40) U/L Alkaline Phosphatase (39-117) U/L Total Protein (6.5-8.0) g/dL Albumin (3.5-5.0) g/dL Urine Color Yellow Urine Appearance Clear Urine pH 5.5 (5.0-9.0) Ur Specific [place] >= 1.030 H (1.005-1.025) Urine Protein 30 (1+) H (Neg-Trace) mg/dL Urine Glucose (UA) Negative (Negative) mg/dL Urine Ketones Trace (Negative) mg/dL Urine Blood Negative (Negative) Urine Nitrite Negative (Negative) Ur Leukocyte Esterase Moderate (2+) H (Negative) Urine RBC 0-2 (0-2) /HPF Urine WBC 21-50 H (0-5) /HPF Ur Squamous Epith Cells 0-2 (0-2) /HPF Urine Bacteria None Seen (None Seen) Hyaline Casts 0-2 (0-2) /LPF Urine Opiates Screen POSITIVE H (Not Detect) Urine Fentanyl Screen POSITIVE H (Not Detect) Ur Barbiturates Screen Not Detected (Not Detect) Ur Phencyclidine Scrn Not Detected (Not Detect) Ur Amphetamines Screen Not Detected (Not Detect) U Benzodiazepines Scrn Not Detected (Not Detect) Urine Cocaine Screen POSITIVE H (Not Detect) U Marijuana (THC) Screen POSITIVE H (Not Detect) Ethyl Alcohol mg/dL COVID-19 (HYUN) (Negative) COVID-19 Clin Com 04/24/23 04/24/23 Range/Units 16:10 16:10 WBC (4.8-10.8) X10*3/uL RBC (4.60-5.80) X10*6/uL Hgb (14.0-18.0) g/dl Hct (42.0-52.0) % MCV (80.0-98.0) fL MCH (27.0-33.0) pg MCHC (31.0-36.0) g/dl RDW (11.0-16.0) % Plt Count (160-400) X10*3/uL MPV (9.4-12.4) fL Immature Gran % (Auto) (0.0-0.4) % Neut % (Auto) (45-73) % Lymph % (Auto) (20-40) % Carlton % (Auto) (2-11) % Eos % (Auto) (0-4) % Baso % (Auto) (0-2) % Lymph # (Auto) (1.2-4.9) X10*3/uL Carlton # (Auto) (0.1-1.2) X10*3/uL Eos # (Auto) (0.0-0.4) X10*3/uL Baso # (Auto) (0.0-0.2) X10*3/uL Abs Immat Gran (auto) (0.00-0.03) X10*3/uL Absolute Neuts (auto) (2.0-8.3) x10*3/uL Absolute Nucleated RBC (0.0-0.012) X10*3/uL Nucleated RBC % (auto) (0.0-0.2) /100WBC Sodium 142 (135-145) mmol/L Potassium 4.0 (3.3-5.1) mmol/L Chloride 106 (96-108) mmol/L Carbon Dioxide 28 (22-29) mmol/L Anion Gap 12 (12-20) BUN 15 (9-16) mg/dL Creatinine 1.10 (0.5-1.4) mg/dL Estim Creat Clear Calc 70.8 Estimated GFR > 60 Random Glucose 117 H (60-115) mg/dL Calcium 9.1 (8.4-10.2) mg/dL Total Bilirubin 0.5 (0.0-1.0) mg/dL AST 25 (5-37) U/L ALT 15 (0-40) U/L Alkaline Phosphatase 66 (39-117) U/L Total Protein 6.7 (6.5-8.0) g/dL Albumin 3.8 (3.5-5.0) g/dL Urine Color Urine Appearance Urine pH (5.0-9.0) Ur Specific [place] (1.005-1.025) Urine Protein (Neg-Trace) mg/dL Urine Glucose (UA) (Negative) mg/dL Urine Ketones (Negative) mg/dL Urine Blood (Negative) Urine Nitrite (Negative) Ur Leukocyte Esterase (Negative) Urine RBC (0-2) /HPF Urine WBC (0-5) /HPF Ur Squamous Epith Cells (0-2) /HPF Urine Bacteria (None Seen) Hyaline Casts (0-2) /LPF Urine Opiates Screen (Not Detect) Urine Fentanyl Screen (Not Detect) Ur Barbiturates Screen (Not Detect) Ur Phencyclidine Scrn (Not Detect) Ur Amphetamines Screen (Not Detect) U Benzodiazepines Scrn (Not Detect) Urine Cocaine Screen (Not Detect) U Marijuana (THC) Screen (Not Detect) Ethyl Alcohol < 10 mg/dL COVID-19 (HYUN) Negative (Negative) COVID-19 Clin Com See Note Chronic Conditions Patient?s care impacted by: Other (Polysubstance use disorder, alcohol use disorder) Discharge Plan Discharge Clinical Impression: Depression, Post traumatic stress disorder, Alcohol intoxication, Alcohol use disorder, Heroin use, Cocaine use Patient Disposition: Still a Patient Prescriptions: No Action No Known Home Meds Interventions: [place]-Suicide Risk Severity Scale Last Done: 04/25/23 05:43
[2023-04-24 14:29] LABS: Appearance Urine Clear; Color Urine Yellow; Glucose Urine UA Negative (Negative); Leukocyte Esterase Urine Moderate (2+) (Negative); Nitrite Urine Negative (Negative); PH 5.5 (5.0-9.0); UMIC TRIGGER UACC YES; Urine Blood Negative (Negative); Urine Ketones Trace mg/dL (Negative); Urine Protein 30 (1+) mg/dL (Neg-Trace)
[2023-04-24 14:34] LABS: Bacteria Urine None Seen (None Seen); Hyaline Casts Urine 0-2 /LPF (0-2); RBC Urine 0-2 /HPF (0-2); Specific Gravity - Urine >= 1.030 (1.005-1.025); Squamous Epithelial Cell Urine 0-2 /HPF (0-2); UACC Culture Trigger YES; WBC Urine 21-50 /HPF (0-5)
[2023-04-24 14:44] LABS: Amphetamine Screen Urine Not Detected (Not Detect); Barbiturates, Urine Not Detected (Not Detect); Benzodiazepines Screen Urine Not Detected (Not Detect); Cannabinoid Screen Urine POSITIVE (Not Detect); Cocaine Screen Urine POSITIVE (Not Detect); Fentanyl, urine POSITIVE (Not Detect); Opiate Screen Urine POSITIVE (Not Detect); Phencyclidine Screen Urine Not Detected (Not Detect)
[2023-04-24 16:14] LABS: MANUAL DIFF FLAG NO
[2023-04-24 16:17] LABS: Basophils Percent Auto 0.3 % (0-2); Eosinophils Absolute Auto 0.1 X10*3/uL (0.0-0.4); Eosinophils Percent Auto 1.3 % (0-4); Hematocrit 40.7 % (42.0-52.0); Hemoglobin 13.6 g/dl (14.0-18.0); Imm Gran Abs Auto 0.02 X10*3/uL (0.00-0.03); Imm Gran Pct Auto 0.3 % (0.0-0.4); Lymphocytes Absolute Auto 1.8 X10*3/uL (1.2-4.9); Lymphocytes Percent Auto 25.4 % (20-40); Mean Corpuscular HGB Conc 33.4 g/dl (31.0-36.0); Mean Corpuscular Hemoglobin 32.3 pg (27.0-33.0); Mean Corpuscular Volume 96.7 fL (80.0-98.0); Mean Platelet Volume 9.6 fL (9.4-12.4); Monocytes Absolute Auto 0.7 X10*3/uL (0.1-1.2); Monocytes Percent Auto 9.8 % (2-11); Neutrophils Absolute Auto 4.4 x10*3/uL (2.0-8.3); Neutrophils Percent Auto 62.9 % (45-73); Platelet Count 259 X10*3/uL (160-400); Red Blood Count 4.21 X10*6/uL (4.60-5.80); Red Cell Distribution Width 12.7 % (11.0-16.0)
[2023-04-24 16:33] LABS: COVID-19 Test Negative (Negative); IDNOW Serial# 55D5AD1C
[2023-04-24 16:41] LABS: Alanine Aminotransferase 15 U/L (0-40); Albumin Level 3.8 g/dL (3.5-5.0); Alkaline Phosphatase 66 U/L (39-117); Anion Gap 12 (12-20); Aspartate Amino Transferase 25 U/L (5-37); Bilirubin Total 0.5 mg/dL (0.0-1.0); Blood Urea Nitrogen 15 mg/dL (9-16); Calcium 9.1 mg/dL (8.4-10.2); Carbon Dioxide 28 mmol/L (22-29); Chloride 106 mmol/L (96-108); Creatinine Clr Calc Pharmacy 70.8; Estimated Glomerular Filt Rate > 60; Ethanol < 10 mg/dL; Glucose Random 117 mg/dL (60-115); Sodium 142 mmol/L (135-145); Total Protein 6.7 g/dL (6.5-8.0)
--- NOTE | 2023-04-24 16:53 | MHC.RECOVSUP ---
Met with pt in [facility] who is here for psychiatric and [facility]ESNA. Pt was brought to the ED yesterday for an OD and is in again today wanting ATS. Pt has been smoking about an 8 ball of crack and 1/2 a bag of heroin a day and is not currently on MAT nor does he want to be. Pt informs yesterday was his 6th OD and he can not recall when or where he last received treatment. Pt information will be sent to [facility] for ATS and will follow up in the morning. Pt has no other questions or concerns at this time, provider aware.
--- NOTE | 2023-04-24 19:56 | PC.NURSE ---
assumed care of patient at 1900 pt resting comfortably on stretcher in no apparent distress. will ctm
[2023-04-24 20:36] VITALS: BP 108/74; PULSE 72; RESP 16; TEMP 36.3; O2SAT 97
--- NOTE | 2023-04-25 02:00 | PC.NURSE ---
patient awake ambulating to and from restroom with steady gait pt requesting and given sandwich. no apparent distress offering no current complaints
== END 2023-04-25 11:50 | disposition home or self-care (01) ==
PROVIDERS: Physician Assistant; Emergency Provider Emergency Medicine Emergency Medical Services
DX: F33.1 Major depressive disorder, recurrent, moderate (principal); F43.10 Post-traumatic stress disorder, unspecified; F10.129 Alcohol abuse with intoxication, unspecified; Y90.0 Blood alcohol level of less than 20 mg/100 ml; F11.10 Opioid abuse, uncomplicated; F14.10 Cocaine abuse, uncomplicated; Z20.822 Contact with and (suspected) exposure to COVID-19; Z20.828 Contact with and (suspected) exposure to other viral communicable diseases; Z87.891 Personal history of nicotine dependence; Z79.899 Other long term (current) drug therapy
CPT/HCPCS: 80053; 80307; 81001; 85025; 87086; 87635; 99285

== ENCOUNTER 2023-04-26 04:48 | Emergency (ER) | payer MEDICAID, SELFPAY ==
[2023-04-26 05:18] VITALS: BP 122/85; PULSE 83; RESP 16; TEMP 36.7; O2SAT 99; BMI 21.1
--- NOTE | 2023-04-26 05:19 | MHC.EDTECH ---
pt came in with all soaked belongings, t/w gathered belongings and put them to wash and dry.
[2023-04-26 06:24] VITALS: BP 110/71; PULSE 70; RESP 16; TEMP 36.7; O2SAT 98
--- NOTE | 2023-04-26 06:30 | MHC.EDTECH ---
pt belongings all washed and dried and returned to pt. trim die maker Rosy made aware.
--- NOTE | 2023-04-26 06:36 | ED.GENADULT ---
HPI - General Adult General Chief complaint: General Medical Stated complaint: Feeling unsafe Time Seen by Provider: 04/26/23 06:35 Source: patient, RN notes reviewed and old records reviewed Mode of arrival: ambulatory History of Present Illness HPI narrative: 47-year-old male with a history of depression, PTSD, alcohol use disorder, polysubstance use disorder who presents emergency department requesting detox. Admits to increasing depression/ anxiety, ETOH, heroin, cocaine, & THC use. patient was evaluated in our ED on 04/24 after accidental overdose, patient was also given resources in our ED yesterday for detox's. Denies SI/HI, recent injury/ trauma or fall. Denies history of EtOH withdrawal seizures. Onset (ago): hour(s) Related Data Home Medications Medication Instructions Recorded Confirmed No Known Home Meds 04/24/23 04/24/23 Allergies Allergy/AdvReac Type Severity Reaction Status Date / Time seafood Allergy Difficulty Verified 04/24/23 05:47 Breathing Seasonal Allergies AdvReac Severe Nasal Verified 04/24/23 05:47 congestion Review of Systems Review of Systems: Constitutional: No Fever, No Chills, No Fatigue, No Malaise ENT/Mouth: No Ear Pain, No Nasal Congestion, No sore throat, No Rhinorrhea, No Swallowing Difficulty Eyes: No Eye Pain, No Swelling, No Redness, No Vision Changes Cardiovascular: No Chest Pain, No SOB, No Edema, No Palpitations Respiratory: No Cough, No Sputum, No Dyspnea Gastrointestinal: No Nausea, No Vomiting, No Diarrhea, No Constipation, No Abdominal pain Genitourinary: No Dysuria, No Urinary Frequency, No Hematuria, No Flank Pain Musculoskeletal: No joint pain, No Myalgias, No Joint Swelling Skin: No Skin Lesions, No rash Neuro: No Weakness, No Dizziness, No Headache Psych: +Anxiety/Panic, +Depression, No SI/HI/AH/VH, + Social Issues Yes all other systems are reviewed and are negative Constitutional: Constitutional: Reports as per [facility] Past Medical History Attestation statement: The following information was validated with the patient. Source: old records reviewed Medical History Alcohol abuse Substance abuse Social History Social History Alcohol intake: current Alcohol intake frequency: a few times a week Alcohol type: beer and hard liquor Patient Tobacco Use Status: Former Tobacco user Substance Use Type: Crack/Cocaine and Heroin Advance Directives: No Advance Directives Information Provided: Yes Physical Exam ED Vital Signs: Vital Signs - 24 hr 04/26/23 05:18 04/26/23 06:24 04/26/23 10:21 Temperature 98.0 F 98.0 F Pulse Rate 83 70 65 Respiratory Rate 16 16 18 Blood Pressure 122/85 110/71 111/70 Pulse Oximetry 99 98 98 Oxygen Delivery Method Room Air Room Air Room Air BMI result Body Mass Index 21.1 Const General: cooperative, healthy appearing and no acute distress Orientation/consciousness: patient oriented x3 Limitations: no limitations HENMT Other: Healing abrasion to left face Head: Yes normal to inspection, No Klein's sign and No raccoon eyes Ears: hearing grossly normal bilaterally General nose exam: Normal external nose present Face and sinus: Yes normal facial exam Eyes General: appearance normal, both eyes and all related structures EOM: EOMs intact bilaterally Neck Neck: Yes normal visual inspection and Yes no meningeal signs Resp Effort & Inspection: normal respiratory effort and no respiratory distress Auscultation: clear to auscultation bilaterally Cardio Rate: regular rate Heart sounds: S1 normal heart sound present and S2 normal heart sound present GI Inspection: Yes normal to inspection Palpation (GI): Soft to palpation, nontender, no guarding and not rigid General: Yes no CVA tenderness Back/Spine/Pelvis Other: No midline cervical/thoracic/lumbar spinous tenderness/step-off or deformity Back: no CVA tenderness Skin Rashes: no rashes Wounds: no wounds Neuro Other: no tongue fasciculations General: patient oriented x3, tone normal and no meningeal signs Cranial nerves: Yes CN's II-XII intact bilaterally Gait exam (Neuro): Normal gait present Motor exam (neuro): no tremor noted Extrem General: Yes normal to inspection Psych Attitude: cooperative Thought content: suicidality, no homicidality, no hallucinations and Depressive thoughts present Course Course Course Narrative: recovery team spoke with patient, he declined detox bed search reviewed resources and left them at bedside with patient. Patient states he has Narcan kit on his person, declined MAT. Plans to call his sister Results discussed with patient including worrisome signs and symptoms and strict return precautions, and when to return to the emergency department. They verbalized understanding and feel safe for discharge at this time. Medical Decision Making Medical Decision Making MDM Narrative: 47-year-old male with a history of depression, PTSD, alcohol use disorder, polysubstance use disorder who presents emergency department requesting detox. on exam vital signs stable, NAD, nontoxic appearing, no tongue fasciculations or tremors appreciated, no evidence of new trauma. Concern for polysubstance abuse / depression. Patient denies SI/HI. Plan: IRBY, [facility], recovery consult Please refer to course for remaining clinical decision making, interpretation of labs/imaging results, and discussions with consultants and/or family members. Differential Diagnosis Differential Diagnoses: The differential diagnosis associated with the presentation includes As above Admission/Observation Consideration of admission/observation: Escalation of care including admission/observation considered Consult Healthcare Provider Management of the patient was discussed with: Behavioral Health Provider Lab Data [facility] Lab Attestation statement: I reviewed the patient's lab results. Radiology Impression Discussion of test interpretation with radiology: I have reviewed the radiologist's reading. External Record Review External record reviewed: Inpatient record, Office record, Outpatient record, Prior outpatient labs, Prior outpatient radiology, Primary care record and Outside ED record Tests considered The following testing was considered but not selected: As above Social Determinants Patient?s care significantly limited by Social Determinants of Health including: Inadequate housing, Low income, Alcoholism and drug addiction in family, Problems related to primary support group, Unemployment, Problems related to employment and Other Social Determinant of Health Discharge Plan Discharge Clinical Impression: Polysubstance abuse Patient Disposition: Home, Self-Care Instructions: Polysubstance Abuse (ED) Additional Instructions: avoid alcohol and drug use this can kill you please go to recovery Prescriptions: No Action No Known Home Meds Referrals: [facility] [Provider Group] [facility] [Outside] Interventions: ED Discharge Assessment Last Done: 04/26/23 11:01 Discharge Date/Time: 04/26/23 11:01
--- NOTE | 2023-04-26 06:43 | PC.NURSE ---
this rn confirmed with security. pt okay to keep belongings at bedside
[2023-04-26 10:21] VITALS: BP 111/70; PULSE 65; RESP 18; O2SAT 98
--- NOTE | 2023-04-26 10:39 | MHC.RECOVRN ---
This teletypewriter installer met with patient, patient presented to the ED requesting detox support. Pt was resting in bed, eating icecream, alert, awake. Pt reports polysubstance use, crack/rosmery and herion. Pt states hx of overdose. This teletypewriter installer reviewed detox bedsearch process. Pt declined detox bedsearch at this time, pt reports plans to call sister and f/u with sister. Reviewed MAT, suboxone, MTD, harm reduction, overdose prevention. Pt verbalized understanding. Pt declines MAT at this time. Recovery resources reviewed and left at bedside, instructions ATS call list, [facility] drop in center/hours of operation, walk in hours at the [facility] for MAT, assistant wrestling coach. Pt verbalized understanding. Pt declines Narcan at this time, pt states knows how to use Narcan, has several narcan kits in backpack. Pt states would like to d/c after eating some food. Reviewed with ED Provider, whom is aware of plan.
--- NOTE | 2023-04-26 10:55 | PC.NURSE ---
[id number] calm cooperative given all belongings and van pass walked to [facility]
== END 2023-04-26 11:01 | disposition home or self-care (01) ==
PROVIDERS: Emergency Provider Internal Medicine
DX: F19.10 Other psychoactive substance abuse, uncomplicated (principal); F32.A Depression, unspecified; F41.9 Anxiety disorder, unspecified; F43.10 Post-traumatic stress disorder, unspecified; F10.10 Alcohol abuse, uncomplicated; Z87.891 Personal history of nicotine dependence
CPT/HCPCS: 99284

== ENCOUNTER 2023-05-12 23:01 | Emergency (ER) | payer MEDICAID, SELFPAY ==
[2023-05-12 23:07] VITALS: BP 131/88; PULSE 89; O2SAT 99; BMI 18.8
[2023-05-12 23:20] VITALS: BP 123/88; PULSE 91; RESP 14; TEMP 36.3; O2SAT 98
--- NOTE | 2023-05-12 23:25 | ED.OVERDOSE ---
HPI - Overdose General Chief Complaint: Overdose Stated Complaint: OVERDOSE + NARCAN A&O Time Seen by Provider: 05/12/23 23:22 Source: patient Mode of arrival: EMS Limitations: no limitations History of Present Illness HPI Narrative: Patient history of substance abuse used heroin earlier today was found on the sidewalk by friends HPD and image processing engineer administered 16 mg of Narcan when EMS arrived patient was drowsy but responsive and answering question to tactile and verbal stimuli respiratory rate of 14 with saturation 98% at room air Related Data Home Medications Medication Instructions Recorded Confirmed No Known Home Meds 04/24/23 04/24/23 Allergies Allergy/AdvReac Type Severity Reaction Status Date / Time seafood Allergy Difficulty Verified 04/24/23 05:47 Breathing Seasonal Allergies AdvReac Severe Nasal Verified 04/24/23 05:47 congestion Review of Systems Review of Systems: Yes all other systems are reviewed and are negative [facility] Past Medical History Medical History Alcohol abuse Substance abuse Social History Social History Alcohol intake: current Alcohol intake frequency: 0-2 drinks per day Alcohol type: beer and hard liquor Patient Tobacco Use Status: Former Tobacco user Smoked in Last 30 Days: Yes Use of substances other than those prescribed or required for medical reasons: Yes Substance Use Type: Crack/Cocaine, Heroin and Marijuana Substance Use Frequency: Daily Last Used Substance: Just Prior to Admission Any prior treatment program specific to substance use: No Advance Directives: No Advance Directives Information Provided: No Physical Exam Vital Signs: Vital Signs: Last Vital Signs Temp 97.4 F 05/12/23 23:20 Pulse 91 05/12/23 23:20 Resp 14 05/12/23 23:20 BP 123/88 05/12/23 23:20 Pulse Ox 98 05/12/23 23:20 O2 Del Method Room Air 05/12/23 23:20 BMI result Body Mass Index 18.8 Appearance: Alert. Oriented X3. No acute distress. Sleeping easily arousable Eyes: PERRLA, No Nystagmus ENT: Pharynx normal. Oral Mucosa moist Neck: Normal inspection. Neck supple. CVS: Normal heart rate and rhythm. Pulses normal. Respiratory: No respiratory distress. Equal air entry bilateral, no wheezing/rales/rhonchi Abdomen: Soft and nontender. Bowel sounds are present, no mass palpable, no CVA tenderness Skin: Skin warm and dry. Normal skin color. Normal skin turgor. Extremities: No lower extremity edema. No calf tenderness Neuro: Oriented X 3. No motor deficit. No sensory deficit.No cerebellar signs , cranial nerves II-XII intact Medical Decision Making Medical Decision Making MDM Narrative: Patient with heroin overdose received Narcan now saturating 98% on room air alert oriented ambulatory discharge patient home does not want to go to detox or any help Discharge Plan Discharge Clinical Impression: Accidental opiate poisoning Patient Disposition: Home, Self-Care Instructions: Narcotic Use Disorder (ED) Additional Instructions: Stop using heroin and opiate drugs Follow-up with detox Prescriptions: No Action No Known Home Meds
[2023-05-13 00:15] VITALS: BP 115/62; PULSE 91; RESP 14; O2SAT 98
[2023-05-13 01:31] VITALS: BP 115/72; PULSE 87; RESP 16; O2SAT 97
== END 2023-05-13 01:39 | disposition home or self-care (01) ==
PROVIDERS: Emergency Provider Internal Medicine
DX: T40.1X1A Poisoning by heroin, accidental (unintentional), initial encounter (principal); R40.0 Somnolence; Y92.480 Sidewalk as the place of occurrence of the external cause
CPT/HCPCS: 99284

== ENCOUNTER 2023-05-13 06:03 | Emergency (ER) | payer OTHER, MEDICAID, SELFPAY ==
[2023-05-13 06:05] VITALS: BP 115/83; PULSE 76; RESP 18; TEMP 36.6; O2SAT 97; BMI 21.1
--- NOTE | 2023-05-13 07:18 | ED.PSYCH ---
HPI - Psych General Chief Complaint: Psychiatric Symptoms Stated Complaint: gen med/feels unsafe Time Seen by Provider: 05/13/23 07:00 Source: patient and old records reviewed Mode of arrival: ambulatory Limitations: no limitations History of Present Illness HPI Narrative: 47 yo male with hx of anxiety, depression, PTSD who has been using heroin and states he has recently overdosed 7 times most recently last night. He is coming back in initially for detox but then he keeps telling me he is not safe and needs mental health - he states he is not suicidal but doesnt want to get there. He is vague. He states he has never been on MAT in the past MD complaint: feels depressed, anxiety and substance abuse Onset (ago): week(s) Duration: intermittent History of same: Yes Relieving factors: none Exacerbating factors: drug use Context: recent drug abuse and not taking psychiatric medications Associated psychiatric symptoms: depression Associated symptoms: denies other symptoms Treatments prior to arrival: none Related Data Home Medications Medication Instructions Recorded Confirmed No Known Home Meds 04/24/23 04/24/23 Allergies Allergy/AdvReac Type Severity Reaction Status Date / Time seafood Allergy Difficulty Verified 05/13/23 06:10 Breathing Seasonal Allergies AdvReac Severe Nasal Verified 05/13/23 06:10 congestion Review of Systems Review of Systems: Constitutional : No Fever, No Chills ENT/Mouth : No Ear Pain, No Nasal Congestion, No sore throat Eyes: No Eye Pain, No Swelling, No Redness Cardiovascular : No Chest Pain, No SOB Respiratory : No Cough, No Sputum, No Dyspnea Gastrointestinal : No Nausea, No Vomiting, No Diarrhea, No Hematochezia, No Melena Genitourinary : No Dysuria, No Urinary Frequency, No Hematuria Musculoskeletal : No Myalgias Skin : No Skin Lesions, No rash Neuro : No Weakness, No Numbness, No Paresthesias, No Dizziness, No Headache Psych : positive Anxiety, positive Depression, no SI/HI All other systems reviewed and are negative [facility] Past Medical History Attestation statement: The following information was validated with the patient. Medical History Alcohol abuse Substance abuse Social History Social History Alcohol intake: current Alcohol intake frequency: 0-2 drinks per day Alcohol type: beer and hard liquor Patient Tobacco Use Status: Former Tobacco user Substance Use Type: Crack/Cocaine, Heroin and Marijuana Advance Directives: No Advance Directives Information Provided: No Physical Exam Vital Signs: Vital Signs: Last Vital Signs Temp 97.8 F 05/13/23 06:05 Pulse 76 05/13/23 06:05 Resp 18 05/13/23 06:05 BP 115/83 05/13/23 06:05 Pulse Ox 97 05/13/23 06:05 O2 Del Method Room Air 05/13/23 06:05 BMI result Body Mass Index 21.1 Appearance: Alert. Oriented X3. No acute distress. Eyes: Pupils equal, round and reactive to light. ENT: Pharynx normal. Neck: Normal inspection. Neck supple. CVS: Normal heart rate and rhythm. Pulses normal. Respiratory: No respiratory distress. Breath sounds normal. Abdomen: Soft and nontender. Skin: Skin warm and dry. Normal skin color. Normal skin turgor. Extremities: No lower extremity edema. No calf ttp Neuro: Oriented X 3. No motor deficit. No sensory deficit. CN2-12 intact Course Course Course Narrative: Physician observation started at 750am. Patient placed in physician observation because the patient needed more time for CARE team and recovery team to assess the need for detox/inpatient needs. At the time observation was started the patient's vitals were stable, patient is alert and oriented, Neuro: nonfocal, CV RRR, Lungs clear Medical Decision Making Medical Decision Making [facility] Narrative: 47 yo male with PMH of anxiety, depression, substance abuse here with c/o depression/anxiety and wants detox but also sounding like dual diagnosis. at this time will obtain labs and refer to CARE team he denies SI now but initially was vague this sounds like he needs more detox. Differential Diagnosis Differential Diagnoses: The differential diagnosis associated with the presentation includes depression, substance abuse Admission/Observation Consideration of admission/observation: Escalation of care including admission/observation considered observation until CARE team/ recovery team assesses patient Consult Healthcare Provider Management of the patient was discussed with: Behavioral Health Provider Lab Data [facility] Lab Attestation statement: I reviewed the patient's lab results. 05/13/23 07:26 05/13/23 07:26 Labs: Lab Results 05/13/23 05/13/23 Range/Units 07:26 07:26 WBC 7.9 (4.8-10.8) X10*3/uL RBC 4.33 L (4.60-5.80) X10*6/uL Hgb 14.2 (14.0-18.0) g/dl Hct 42.3 (42.0-52.0) % MCV 97.7 (80.0-98.0) fL MCH 32.8 (27.0-33.0) pg MCHC 33.6 (31.0-36.0) g/dl RDW 12.4 (11.0-16.0) % Plt Count 282 (160-400) X10*3/uL MPV 8.9 L (9.4-12.4) fL Immature Gran % (Auto) 0.0 (0.0-0.4) % Neut % (Auto) 69.1 (45-73) % Lymph % (Auto) 19.8 L (20-40) % Edgar % (Auto) 10.1 (2-11) % Eos % (Auto) 0.6 (0-4) % Baso % (Auto) 0.4 (0-2) % Lymph # (Auto) 1.6 (1.2-4.9) X10*3/uL Edgar # (Auto) 0.8 (0.1-1.2) X10*3/uL Eos # (Auto) 0.1 (0.0-0.4) X10*3/uL Baso # (Auto) 0.0 (0.0-0.2) X10*3/uL Abs Immat Gran (auto) 0.00 (0.00-0.03) X10*3/uL Absolute Neuts (auto) 5.5 (2.0-8.3) x10*3/uL Absolute Nucleated RBC 0.000 (0.0-0.012) X10*3/uL Nucleated RBC % (auto) 0.0 (0.0-0.2) /100WBC Sodium 140 (135-145) mmol/L Potassium 3.7 (3.3-5.1) mmol/L Chloride 104 (96-108) mmol/L Carbon Dioxide 25 (22-29) mmol/L Anion Gap 15 (12-20) BUN 16 (9-16) mg/dL Creatinine 0.98 (0.5-1.4) mg/dL Estim Creat Clear Calc 80.7 Estimated GFR > 60 Random Glucose 126 H (60-115) mg/dL Calcium 9.3 (8.4-10.2) mg/dL Total Bilirubin 0.7 (0.0-1.0) mg/dL Direct Bilirubin 0.3 (0.0-0.5) mg/dL AST 36 (5-37) U/L ALT 18 (0-40) U/L Alkaline Phosphatase 70 (39-117) U/L Total Protein 6.7 (6.5-8.0) g/dL Albumin 3.9 (3.5-5.0) g/dL Ethyl Alcohol < 10 mg/dL External Record Review External record reviewed: Inpatient record Social Determinants Patient?s care significantly limited by Social Determinants of Health including: Inadequate housing, Low income, Alcoholism and drug addiction in family and Problems related to primary support group Discharge Plan Discharge Clinical Impression: Active substance abuse Patient Disposition: Still a Patient Prescriptions: No Action No Known Home Meds
[2023-05-13 07:30] LABS: MANUAL DIFF FLAG NO
[2023-05-13 07:31] LABS: Basophils Percent Auto 0.4 % (0-2); Eosinophils Absolute Auto 0.1 X10*3/uL (0.0-0.4); Eosinophils Percent Auto 0.6 % (0-4); Hematocrit 42.3 % (42.0-52.0); Hemoglobin 14.2 g/dl (14.0-18.0); Lymphocytes Absolute Auto 1.6 X10*3/uL (1.2-4.9); Lymphocytes Percent Auto 19.8 % (20-40); Mean Corpuscular HGB Conc 33.6 g/dl (31.0-36.0); Mean Corpuscular Hemoglobin 32.8 pg (27.0-33.0); Mean Corpuscular Volume 97.7 fL (80.0-98.0); Mean Platelet Volume 8.9 fL (9.4-12.4); Monocytes Absolute Auto 0.8 X10*3/uL (0.1-1.2); Monocytes Percent Auto 10.1 % (2-11); Neutrophils Absolute Auto 5.5 x10*3/uL (2.0-8.3); Neutrophils Percent Auto 69.1 % (45-73); Platelet Count 282 X10*3/uL (160-400); Red Blood Count 4.33 X10*6/uL (4.60-5.80); Red Cell Distribution Width 12.4 % (11.0-16.0); White Blood Count 7.9 X10*3/uL (4.8-10.8)
[2023-05-13 07:46] LABS: Alanine Aminotransferase 18 U/L (0-40); Albumin Level 3.9 g/dL (3.5-5.0); Alkaline Phosphatase 70 U/L (39-117); Anion Gap 15 (12-20); Aspartate Amino Transferase 36 U/L (5-37); Bilirubin Direct 0.3 mg/dL (0.0-0.5); Bilirubin Total 0.7 mg/dL (0.0-1.0); Blood Urea Nitrogen 16 mg/dL (9-16); Calcium 9.3 mg/dL (8.4-10.2); Carbon Dioxide 25 mmol/L (22-29); Chloride 104 mmol/L (96-108); Creatinine Clr Calc Pharmacy 80.7; Estimated Glomerular Filt Rate > 60; Ethanol < 10 mg/dL; Glucose Random 126 mg/dL (60-115); Potassium 3.7 mmol/L (3.3-5.1); Sodium 140 mmol/L (135-145); Total Protein 6.7 g/dL (6.5-8.0)
[2023-05-13 09:04] VITALS: BP 107/67; PULSE 62; RESP 18; TEMP 36.6; O2SAT 96
[2023-05-13 12:24] LABS: Amphetamine Screen Urine Not Detected (Not Detect); Barbiturates, Urine Not Detected (Not Detect); Benzodiazepines Screen Urine Not Detected (Not Detect); Cannabinoid Screen Urine POSITIVE (Not Detect); Cocaine Screen Urine POSITIVE (Not Detect); Fentanyl, urine POSITIVE (Not Detect); Opiate Screen Urine Not Detected (Not Detect); Phencyclidine Screen Urine Not Detected (Not Detect)
--- NOTE | 2023-05-13 12:40 | PC.NURSE ---
Pt calm and cooperative. Reports fear of dying d/t overdose. Denies SI or HI. Denies H/O ETOH withdrawal/seizures. Reports homelessness ongoing throughout most of life since the age of 9. Steady on feet
--- NOTE | 2023-05-13 13:40 | PC.NURSE ---
Room moved for TV. Pt remains calm and cooperative. Dual diagnoses bedsearch
--- NOTE | 2023-05-13 13:55 | PM.PSYCN ---
History of Present Illness Date of Service: 05/13/2023 Chief Complaint: gen med/feels unsafe Sources of Information: patient interviewed, chart reviewed and crisis/core team assessment reviewed HPI Narrative: Mr. ramos is a 48 year-old male with hx of MDD, polysubstance use disorder who self presented reporting increased depression and suicidal ideation in context of ongoing substance use and lack of stable housing. Pt reports ongoing depression. He also reports motivation to engage in substance use treatment. He denied any plan or intent to harm himself and further explains that suicidal ideation are conditional to stable place to stay. He denied VH/AH and does not appear internally preoccupied. No s/s of delusions. [facility] Medical History Substance abuse Alcohol abuse Diagnostics Vital Signs (24Hr): Vital Signs - 24 hr 05/13/23 06:05 05/13/23 09:04 Temperature 97.8 F 97.9 F Pulse Rate 76 62 Respiratory Rate 18 18 Blood Pressure 115/83 107/67 Pulse Oximetry 97 96 Oxygen Delivery Method Room Air Room Air BMI result Body Mass Index 21.1 Labs 05/13/23 07:26 05/13/23 07:26 Labs: Laboratory Results - last 48 hr 05/13/23 05/13/23 05/13/23 07:26 07:26 12:05 WBC 7.9 RBC 4.33 L Hgb 14.2 Hct 42.3 MCV 97.7 MCH 32.8 MCHC 33.6 RDW 12.4 Plt Count 282 MPV 8.9 L Immature Gran % (Auto) 0.0 Neut % (Auto) 69.1 Lymph % (Auto) 19.8 L Thurston % (Auto) 10.1 Eos % (Auto) 0.6 Baso % (Auto) 0.4 Lymph # (Auto) 1.6 Thurston # (Auto) 0.8 Eos # (Auto) 0.1 Baso # (Auto) 0.0 Abs Immat Gran (auto) 0.00 Absolute Neuts (auto) 5.5 Absolute Nucleated RBC 0.000 Nucleated RBC % (auto) 0.0 Sodium 140 Potassium 3.7 Chloride 104 Carbon Dioxide 25 Anion Gap 15 BUN 16 Creatinine 0.98 Estim Creat Clear Calc 80.7 Estimated GFR > 60 Random Glucose 126 H Calcium 9.3 Total Bilirubin 0.7 Direct Bilirubin 0.3 AST 36 ALT 18 Alkaline Phosphatase 70 Total Protein 6.7 Albumin 3.9 Urine Opiates Screen Not Detected Urine Fentanyl Screen POSITIVE H Ur Barbiturates Screen Not Detected Ur Phencyclidine Scrn Not Detected Ur Amphetamines Screen Not Detected U Benzodiazepines Scrn Not Detected Urine Cocaine Screen POSITIVE H U Marijuana (THC) Screen POSITIVE H Ethyl Alcohol < 10 Mental Status Exam Mental Status Exam Patient Appearance: Well Grooomed Patient Orientation: Person, Place and Time Level of Consciousness: Appropriate Patient Behavior: Appropriate Mood Description: Calm and Appropriate Affect Description: Calm and Appropriate Patient Cognition Impaired: No Ability to Follow Directions: Good Speech Pattern: Clear, Appropriate and Spontaneous Speech Memory Description: Intact Hallucinations: None Delusions: Not Present Thought Process: Linear Thought Content: positive for Goal Oriented (ting to get into program) Judgement: Poor Medications Allergies Allergies Allergy/AdvReac Type Severity Reaction Status Date / Time seafood Allergy Difficulty Verified 05/13/23 06:10 Breathing Seasonal Allergies AdvReac Severe Nasal Verified 05/13/23 06:10 congestion Assessment & Plan Assessment & Plan (1) MDD (major depressive disorder), recurrent episode, moderate: Status: Acute Code(s): F33.1 - Major depressive disorder, recurrent, moderate (2) Alcohol use disorder, moderate, dependence: Status: Acute Code(s): F10.20 - Alcohol dependence, uncomplicated Plan Mr. Ramos is a 48 year-old male with hx of mdd, polysubstance use disorder who self presented reporting increase depression and SI. He denies any plan or intent to harm himself or others. However, he explained that his suicidality is conditional to finding stable palce to be. He reports motivation to engage in css program and other residential programs for substance use. He will be referred to substance use tx programs. PLAN 1. no inpatient level of care, but pt amenable to substance use treatment. Total time managing care of this patient today ____ minutes. Patient educated on: diagnosis, medication risk/benefits and substance abuse Informed Consent: understands
--- NOTE | 2023-05-13 14:14 | MHC.CARE ---
Pt was seen by hospital psychiatric team, pt denies any suicidal or homicidal ideation plan or intent and not a currently a risk to self or others. Pt does not meet inpatient level of care currently. Recommendation is for substance use treatment detox, than step down to [facility].
--- NOTE | 2023-05-13 14:50 | MHC.RECOVSUP ---
Addendum entered by Michael Guzman 05/13/23 17:00: ATS bed search exhausted at this time, pt declined MAT. Due to increased chaotic use and history of 7 OD, reviewed with provider pt staying the night to continue ATS bed search in the morning. Original Note: Followed up with pt after being cleared by Care Team to continue a bed search. Pt informs he is willing to go to any facility that is available at this time. ATS bed search is in process and T/W advocated for this pt to stay the night to continue bed search in the morning as pt has had several OD.
--- NOTE | 2023-05-13 16:02 | PC.NURSE ---
Assumed care of patient at 1500, patient has been resting comfortably, offers no complaints to this RN, respirations even and unlabored, no apparent distress.
--- NOTE | 2023-05-13 17:29 | MHC.CARE ---
CARE Team collaborates with Kimberley Hunter NP who has cleared pt for discharge earlier today w/ plan for [facility] tx. No detox bed available today. Plan made in conjunction with Smiley Haynes NP is for pt to be discharged to the living room or [facility] [place] in the morning to get support with continued detox bedsearch.
[2023-05-14 06:19] VITALS: BP 112/67; PULSE 69; RESP 16; TEMP 36.6; O2SAT 98
--- NOTE | 2023-05-14 06:24 | PC.NURSE ---
Patient slept through the night, no distress observed/reported, behavior non concerning, patient is currently not on any medication, VSS, disposition per psych provider is detox bed search, recovery team is coordinating the bed search, labs completed/resulted, will continue to monitor
--- NOTE | 2023-05-14 11:27 | MHC.RECOVRN ---
Addendum entered by Elaine Gallardo RN 05/14/23 14:18: Pt agreeable to go to [facility], aware the detox search was exhausted. Plan to lyft pt there, provider aware and will be placing pt for d/c. Addendum entered by Elaine Gallardo RN 05/14/23 11:31: Detox bedsearch has been exhausted, plan for pt to receive his comfort meds and will discuss whether he prefers [facility] or [facility]. Original Note: Late entry: T/w met with patient to touch base. Pt still endorsing he would like to go to detox if possible. Pt stating he feels unwell, reporting anxiety, hot and cold flashes, shakes, and body aches. Pt declining MOUD, amenable to comfort meds such as clonidine or hydroxyzine. RN aware and to obtain orders for meds. Pt informed t/w is working on his bedsearch- but there may not be any bed availability today and that the next option would be for him to go to [facility] or [facility]. Pt ageeable to plan of care, care team aware.
[2023-05-14 11:40] VITALS: BP 116/69; PULSE 58; RESP 16; TEMP 36.6; O2SAT 99
[2023-05-14] MEDS: Ibuprofen 400 MG TABLET PO (11:55)
[2023-05-14] MEDS: hydrOXYzine HCL 25 MG TABLET PO (11:56)
--- NOTE | 2023-05-14 13:08 | PC.NURSE ---
Jose R has been in his room resting in bed for most of the shift. Pleasant when engaged Jose R reported he felt like he was beginning to have withdrawal symptoms including muscle aches and feeling cold. Ibuprofen and Hydroxyzine given. Clonidine held d/t low heart rate. Denies SI/HI. Appetite good. No behavioral concerns noted.
== END 2023-05-14 16:08 | disposition home or self-care (01) ==
PROVIDERS: Emergency Provider Emergency Medicine
DX: F33.1 Major depressive disorder, recurrent, moderate (principal); F11.10 Opioid abuse, uncomplicated; F41.9 Anxiety disorder, unspecified; Z87.891 Personal history of nicotine dependence; Z79.899 Other long term (current) drug therapy
CPT/HCPCS: 36415; 80048; 80076; 80307; 85025; 99285; S9485

== ENCOUNTER → 2023-05-13 06:11 | Outpatient (BNV) | payer OTHER, SELFPAY | PROVIDERS: Emergency Provider Emergency Medicine; Visit Provider Social Worker | DX: F33.1 Major depressive disorder, recurrent, moderate (principal); F10.20 Alcohol dependence, uncomplicated | CPT/HCPCS: 99285 ==

== ENCOUNTER 2023-05-24 14:41 | Emergency (ER) | payer MEDICAID, SELFPAY ==
--- NOTE | ~2023-05-24 | CT_ITS ---
EXAMINATION: CT HEAD WITHOUT CONTRAST CLINICAL INFORMATION: Fall. Head trauma. Overdose. COMPARISON: CT of the temporal bones December 2022 TECHNIQUE: Contiguous axial imaging was performed from the skull base to vertex without intravenous administration of contrast. This CT examination was performed using dose optimization techniques as appropriate, variously including the following: *Automated exposure control *Adjustment of mA and/or kV according to patient size (this includes techniques or standardized protocols for targeted exams where dose is matched to indication/reason for exam; i.e. extremities or head) *Use of iterative reconstruction technique DLP: 710 mGy-cm FINDINGS: There is no evidence of an extra-axial collection. There is no evidence of intra-axial or extra-axial hemorrhage. The ventricles and extra-axial CSF spaces are appropriate. White matter differentiation is normal. No mass, mass effect or infarct. No skull fracture. Bilateral nasal bone fractures, uncertain age. Visualized paranasal sinuses, mastoid air cells and middle ears are clear. CT/CT head/brain wo IV con IMPRESSION: No acute intracranial pathology.
[2023-05-24 14:50] VITALS: BP 108/67; PULSE 96; RESP 18; TEMP 36.7; O2SAT 99; BMI 22.8
--- NOTE | 2023-05-24 14:53 | ED_ITS ---
HPI - Overdose General Chief Complaint: Overdose Stated Complaint: OD,NARCAN GIVEN W/GOOD RESULT [employer] PER EMS Source: patient and EMS Mode of arrival: EMS Limitations: other (poo historian ) History of Present Illness HPI Narrative: This is a 47-year-old male who presents status post smoking drugs out of the pipe, he states he is not sure exactly what he was smoking however it knocked me down , he reports he fell and he thinks he hit his head, he was given 8 mg of intranasal Narcan prior to arrival with good affect. Denies suicidal and homicidal ideation. Denies alcohol. Denies hallucinations. He is looking for detox. Related Data Previous Rx's Medication Instructions Recorded naloxone 4 mg/actuation nasal 4 mg intranasal Q2M PRN opioid 05/24/23 spray (Narcan) overdose #2 ea Allergies Allergy/AdvReac Type Severity Reaction Status Date / Time seafood Allergy Difficulty Verified 05/13/23 06:10 Breathing Seasonal Allergies AdvReac Severe Nasal Verified 05/13/23 06:10 congestion Review of Systems 2 Review of Systems: Constitutional : No Weight loss, No Fever, No Chills, No Fatigue, No Malaise ENT/Mouth : No sore throat, No Rhinorrhea Eyes: No Eye Pain, No Swelling, No Redness Cardiovascular : No Chest Pain, No SOB, No Dyspnea on Exertion, No Orthopnea, No Edema, No Palpitations Respiratory : No Cough, No Sputum, No Wheezing Gastrointestinal : No Nausea, No Vomiting, No Diarrhea, No Constipation, No abdominal Pain, No Hematochezia, No Melena Genitourinary : No Dysuria, No Urinary Frequency, No Hematuria, Musculoskeletal : No joint pain, No Myalgias, No Joint Swelling Skin : No Skin Lesions, No rash Neuro : No Weakness, No Numbness, No Dizziness, No Headache Psych : No Anxiety/Panic, No Depression, No SI/HI All other systems reviewed and are negative Yes all other systems are reviewed and are negative [facility] Past Medical History Attestation statement: The following information was validated with the patient. Source: old records reviewed and nursing notes reviewed Medical History Substance abuse Alcohol abuse Social History Social History Alcohol intake: current Alcohol intake frequency: 0-2 drinks per day Alcohol type: beer and hard liquor Patient Tobacco Use Status: Former Tobacco user Substance Use Type: Crack/Cocaine, Heroin and Marijuana Physical Exam 2 Vital Signs: Vital Signs: Last Vital Signs Temp 98.1 F 05/24/23 15:23 Pulse 92 05/24/23 15:23 Resp 16 05/24/23 15:23 BP 109/73 05/24/23 15:23 Pulse Ox 98 05/24/23 15:23 O2 Del Method Room Air 05/24/23 15:23 BMI result Body Mass Index 22.8 vss Appearance: Alert.? Oriented X3.? No acute distress.? Head: Normocephalic, atraumatic, no step-offs or deformities Eyes: Pupils equal, round and reactive to light.? CVS: Normal heart rate and rhythm.? Pulses normal.? Respiratory: No respiratory distress.? Breath sounds normal.? Abdomen: Soft and nontender.? Skin: Skin warm and dry.? Normal skin color.? Normal skin turgor.? Extremities: No lower extremity edema.? No calf ttp. 5/5 strength to bilateral upper and lower extremities Neuro: Oriented X 3.? No motor deficit.? No sensory deficit. CN 2-12 intact Course Reevaluation(s) Reevaluation #1: CBC with a normocytic anemia, appears to be around patient's baseline. Chemistry with no acute findings requiring intervention. Salicylates, acetaminophen and ethanol negative. CT head and brain with no acute intracranial pathology. Neuro exam nonfocal. Urine urine toxicology pending. Patient's vital signs stable. Patient pending substance use disorder evaluation. This time patient to be placed into observation to allow more time to be evaluated by behavioral health team. Time: 16:01 Medical Decision Making Medical Decision Making [facility] Narrative: [id number] 47-year-old male presents requesting detox status post overdosing with unknown substance. Reports he thinks he fell on his head. Not on blood thinners. Physical exam benign. This is likely accidental overdose. Unlikely ethanol/alcohol intoxication. Unlikely metabolic derangements. Plan at this time medical clearance evaluation by behavioral health team for substance use disorder evaluation. Differential Diagnosis Differential Diagnoses: The differential diagnosis associated with the presentation includes This is likely accidental overdose. Unlikely ethanol/alcohol intoxication. Unlikely metabolic derangements. Admission/Observation Consideration of admission/observation: Escalation of care including admission/observation considered Lab Data [facility] Lab Attestation statement: I reviewed the patient's lab results. 05/24/23 15:18 05/24/23 15:18 Labs: Lab Results 05/24/23 Range/Units 15:18 WBC 8.0 (4.8-10.8) X10*3/uL RBC 4.02 L (4.60-5.80) X10*6/uL Hgb 13.2 L (14.0-18.0) g/dl Hct 39.5 L (42.0-52.0) % MCV 98.3 H (80.0-98.0) fL MCH 32.8 (27.0-33.0) pg MCHC 33.4 (31.0-36.0) g/dl RDW 12.1 (11.0-16.0) % Plt Count 276 (160-400) X10*3/uL MPV 9.4 (9.4-12.4) fL Immature Gran % (Auto) 0.3 (0.0-0.4) % Neut % (Auto) 74.2 H (45-73) % Lymph % (Auto) 15.1 L (20-40) % Hamblen % (Auto) 8.7 (2-11) % Eos % (Auto) 1.3 (0-4) % Baso % (Auto) 0.4 (0-2) % Lymph # (Auto) 1.2 (1.2-4.9) X10*3/uL Hamblen # (Auto) 0.7 (0.1-1.2) X10*3/uL Eos # (Auto) 0.1 (0.0-0.4) X10*3/uL Baso # (Auto) 0.0 (0.0-0.2) X10*3/uL Abs Immat Gran (auto) 0.02 (0.00-0.03) X10*3/uL Absolute Neuts (auto) 5.9 (2.0-8.3) x10*3/uL Absolute Nucleated RBC 0.000 (0.0-0.012) X10*3/uL Nucleated RBC % (auto) 0.0 (0.0-0.2) /100WBC Sodium 142 (135-145) mmol/L Potassium 3.6 (3.3-5.1) mmol/L Chloride 107 (96-108) mmol/L Carbon Dioxide 30 H (22-29) mmol/L Anion Gap 9 L (12-20) BUN 14 (9-16) mg/dL Creatinine 1.19 (0.5-1.4) mg/dL Estim Creat Clear Calc 71.6 Estimated GFR > 60 Random Glucose 109 (60-115) mg/dL Calcium 9.1 (8.4-10.2) mg/dL Magnesium 2.2 (1.6-2.6) mg/dL Total Bilirubin 0.3 (0.0-1.0) mg/dL AST 82 H (5-37) U/L ALT 28 (0-40) U/L Alkaline Phosphatase 100 (39-117) U/L Total Protein 6.6 (6.5-8.0) g/dL Albumin 3.8 (3.5-5.0) g/dL Salicylates < 5.0 L (15-30) mg/dL Acetaminophen < 17 (<30) mcg/mL Ethyl Alcohol < 10 mg/dL Critical Care Time Critical Care Time Critical Care Time: No Discharge Plan Discharge Clinical Impression: Drug overdose Patient Disposition: Home, Self-Care Instructions: Adult Overdose (ED) Additional Instructions: Take your medications as prescribed. If you were prescribed antibiotics today, it is important that you take your medication to their entirety, do not skip any doses, do not finish them early. Follow-up with your primary care provider this week. Return to the emergency department with new or worsening symptoms. Such as fevers, chills, chest pain, shortness of breath, nausea, vomiting, dizziness, headache, vision changes, lethargy In case of emergency call 911 Prescriptions: New naloxone [Narcan] 4 mg/actuation spray,non-aerosol 4 mg intranasal Q2M PRN (Reason: opioid overdose) Qty: 2 0RF Rx Instructions: spray 1 dose into ONE nostril; alternate nostrils w each dose until help arrives Referrals: ED Physician,Generic [Emergency Provider] - 2 days
--- NOTE | 2023-05-24 14:54 | PC.NURSE ---
security aware of patient
--- NOTE | 2023-05-24 15:04 | PC.NURSE ---
pt currently going to CT.
[2023-05-24 15:23] VITALS: BP 109/73; PULSE 92; RESP 16; TEMP 36.7; O2SAT 98
[2023-05-24 15:25] LABS: MANUAL DIFF FLAG NO
--- NOTE | 2023-05-24 15:28 | PC.NURSE ---
pt returned from [facility] and sent over.
[2023-05-24 15:30] LABS: Basophils Percent Auto 0.4 % (0-2); Eosinophils Absolute Auto 0.1 X10*3/uL (0.0-0.4); Eosinophils Percent Auto 1.3 % (0-4); Hematocrit 39.5 % (42.0-52.0); Hemoglobin 13.2 g/dl (14.0-18.0); Imm Gran Abs Auto 0.02 X10*3/uL (0.00-0.03); Imm Gran Pct Auto 0.3 % (0.0-0.4); Lymphocytes Absolute Auto 1.2 X10*3/uL (1.2-4.9); Lymphocytes Percent Auto 15.1 % (20-40); Mean Corpuscular HGB Conc 33.4 g/dl (31.0-36.0); Mean Corpuscular Hemoglobin 32.8 pg (27.0-33.0); Mean Corpuscular Volume 98.3 fL (80.0-98.0); Mean Platelet Volume 9.4 fL (9.4-12.4); Monocytes Absolute Auto 0.7 X10*3/uL (0.1-1.2); Monocytes Percent Auto 8.7 % (2-11); Neutrophils Absolute Auto 5.9 x10*3/uL (2.0-8.3); Neutrophils Percent Auto 74.2 % (45-73); Platelet Count 276 X10*3/uL (160-400); Red Blood Count 4.02 X10*6/uL (4.60-5.80); Red Cell Distribution Width 12.1 % (11.0-16.0)
[2023-05-24 15:45] LABS: Acetaminophen LAB < 17 mcg/mL (<30); Alanine Aminotransferase 28 U/L (0-40); Albumin Level 3.8 g/dL (3.5-5.0); Alkaline Phosphatase 100 U/L (39-117); Anion Gap 9 (12-20); Aspartate Amino Transferase 82 U/L (5-37); Bilirubin Total 0.3 mg/dL (0.0-1.0); Blood Urea Nitrogen 14 mg/dL (9-16); Calcium 9.1 mg/dL (8.4-10.2); Carbon Dioxide 30 mmol/L (22-29); Chloride 107 mmol/L (96-108); Creatinine Clr Calc Pharmacy 71.6; Estimated Glomerular Filt Rate > 60; Ethanol < 10 mg/dL; Glucose Random 109 mg/dL (60-115); Magnesium 2.2 mg/dL (1.6-2.6); Potassium 3.6 mmol/L (3.3-5.1); Salicylate < 5.0 mg/dL (15-30); Sodium 142 mmol/L (135-145); Total Protein 6.6 g/dL (6.5-8.0)
--- NOTE | 2023-05-24 15:54 | MHC.RECOVRN ---
This designer/writer attempted to meet with patient, pt to sedated to answer t/w questions- pt state neck is hurting badly. ED RN made aware.
--- NOTE | 2023-05-24 16:01 | PC.NURSE ---
attempted to speak w/ pt but he is too sedated to have a conversation martinez. pt is able to verbalize that he is seeking detox and that he has pain in his head/neck. will notify provider. pt is not able to recall what he took prior to coming to the ED at this time. pt resting with eyes closed. respirations even and unlabored. will attempt to speak with the pt again shortly.
[2023-05-24 16:57] VITALS: BP 114/78; PULSE 98; RESP 16; TEMP 36.6; O2SAT 97
[2023-05-24 17:37] LABS: Amphetamine Screen Urine Not Detected (Not Detect); Barbiturates, Urine Not Detected (Not Detect); Benzodiazepines Screen Urine Not Detected (Not Detect); Cannabinoid Screen Urine POSITIVE (Not Detect); Cocaine Screen Urine POSITIVE (Not Detect); Fentanyl, urine POSITIVE (Not Detect); Opiate Screen Urine POSITIVE (Not Detect); Phencyclidine Screen Urine Not Detected (Not Detect)
--- NOTE | 2023-05-24 17:40 | PC.NURSE ---
pt a&ox3 at this time. pt verbalizes that neck/head pain has decreased some since last time we spoke. pt spoke with detox body team member to formulate plan. pt's vss and up to date. pt in no apparent distress. resting comfortably on the stretcher. respirations even and unlabored.
--- NOTE | 2023-05-24 18:00 | MHC.RECOVSUP ---
? Reason for consult:OPI o? Current location:ED06H? o? Identified substance use concern:? -? Overdose -? Seeking ATS (detox) -? Support ?? Intervention: o? ATS bed search started/completed/in process o? Community resources provided o? Harm reduction discussion ? Plan: o? Referral to [facility] o? Bed search in progress to ? Additional information:RC met with this pt and discussed treatment options, pt is seeking ATS treatment inpatient. RC started bedsearch for this pt, RC informed provider, and asked for this pt to be held until a bed is available tomorrow. Please follow up tomorrow.
--- NOTE | 2023-05-24 19:05 | HO.SUDE ---
This resume writer met with patient to complete SUDE. Pt reports since last hospitalization, has been using daily ETOH, crack/ROSMERY, heroin. Pt reports ETOH use 8 shots, 7 beers daily. Crack/ROSMERY smoking up to $200 worth daily, heroin 1 bundle IV daily. Pt reports polysubstance use prior to overdose crack/rosmery and heroin. Pt has significant OD hx. Pt has presented 8 times to this ED for overdose. Pt currently states feeling confused, scared. Harm reduction reviewed, recovery supports reviewed. Reviewed there are not open detox beds Foreign ferreira, Claims Representative sent ATS referral to [facility]. Reviewed MAT, pt interested in Suboxone, reviewed process of induction, reviewed benefits of Suboxone/Sublocade as overdose protection. Pt verbalized understanding. This resume writer reviewed findings with ED Provider, who is aware.
[2023-05-25 00:03] VITALS: BP 111/75; PULSE 54; RESP 17; TEMP 36.8; O2SAT 98
--- NOTE | 2023-05-25 02:05 | PC.NURSE ---
PT CIWA 6. Informed provider Ramakrishna, no new order at this time
--- NOTE | 2023-05-25 02:34 | PC.NURSE ---
Reviewed discharge instructions with pt, pt refusing to sign, Pt a&o, no sign of distress.
--- NOTE | 2023-05-25 02:35 | PC.NURSE ---
Notified Mikal Bui of pt discharge.
--- NOTE | 2023-05-25 05:07 | MHC.CARE ---
Pt presented to the ER a second time tonight after being seen earlier and referred to a Detox. Pt presented as suicidal at Triage for the reported secondary gain of wanting to wait in the behavior pod which he requested. T/W interviewed Pt and he denied suicidal ideation with plans or intent,and restated that he just wanted a place to stay until the morning when he goes to Detox. Pt was discharged and told that he could waiting in the ER lobby until the recovery coaches arrive in the morning.
== END 2023-05-25 02:39 | disposition home or self-care (01) ==
PROVIDERS: Physician Assistant; Emergency Provider Student in an Organized Health Care Education/Training Program
DX: T50.901A Poisoning by unspecified drugs, medicaments and biological substances, accidental (unintentional), initial encounter (principal); F19.10 Other psychoactive substance abuse, uncomplicated; Y92.9 Unspecified place or not applicable; Z87.891 Personal history of nicotine dependence
CPT/HCPCS: 36415; 70450; 80053; 80143; 80179; 80307; 83735; 85025; 99285

== ENCOUNTER 2023-05-25 02:43 | Emergency (ER) | payer MEDICAID, SELFPAY ==
[2023-05-25 02:45] VITALS: BP 123/79; PULSE 67; RESP 16; TEMP 36.4; O2SAT 97; BMI 22.2
--- NOTE | 2023-05-25 03:21 | ED.PSYCH ---
HPI - Psych General Chief Complaint: Psychiatric Symptoms Stated Complaint: Crisis Time Seen by Provider: 05/25/23 03:17 Source: patient and old records reviewed Mode of arrival: ambulatory Limitations: no limitations History of Present Illness HPI Narrative: 47 yo male with hx of polysubstance abuse just seen and discharged after having his SUDE evaluation. No detox beds available and DC with resources and IN narcan. He was not happy we could not place him. During his ED stay he charged his cell phone. Ate lots of food, asked for clean sheets. On discharge he then reported vague SI and stated he was going to check back in unless we let him sleep in the pod. At no point during the initial stay did he report SI until discharge. He now reports being unsafe and wants to talk to crisis. He has hx of same and has been cleared by CARE team in past. MD complaint: suicidal ideation and substance abuse Onset (ago): hour(s) (since discharge) Duration: intermittent History of same: Yes Relieving factors: none Exacerbating factors: drug use Context: recent drug abuse and significant life stressor Associated psychiatric symptoms: suicidal ideation Associated symptoms: denies other symptoms Treatments prior to arrival: none If self harm: admits thoughts of self harm Related Data Previous Rx's Medication Instructions Recorded naloxone 4 mg/actuation nasal 4 mg intranasal Q2M PRN opioid 05/24/23 spray (Narcan) overdose #2 ea Allergies Allergy/AdvReac Type Severity Reaction Status Date / Time seafood Allergy Difficulty Verified 05/13/23 06:10 Breathing Seasonal Allergies AdvReac Severe Nasal Verified 05/13/23 06:10 congestion Review of Systems Review of Systems: Constitutional : No Fever, No Chills Cardiovascular : No Chest Pain, No SOB Respiratory : No Cough, No Sputum, No Dyspnea Gastrointestinal : No Nausea, No Vomiting, No Diarrhea, No Hematochezia, No Melena Genitourinary : No Dysuria, No Urinary Frequency, No Hematuria Musculoskeletal : No Myalgias Skin : No Skin Lesions, No rash Neuro : No Weakness, No Numbness, No Paresthesias, No Dizziness, No Headache Psych : positive Anxiety, positive Depression, no SI no HI All other systems reviewed and are negative [facility] Past Medical History Attestation statement: The following information was validated with the patient. Medical History Substance abuse Alcohol abuse Social History Social History Alcohol intake: current Alcohol intake frequency: 0-2 drinks per day Alcohol type: beer and hard liquor Patient Tobacco Use Status: Former Tobacco user Substance Use Type: Crack/Cocaine, Heroin and Marijuana Advance Directives: No Advance Directives Information Provided: No Physical Exam Vital Signs: Vital Signs: Last Vital Signs Temp 97.6 F 05/25/23 02:45 Pulse 67 05/25/23 02:45 Resp 16 05/25/23 02:45 BP 123/79 05/25/23 02:45 Pulse Ox 97 05/25/23 02:45 O2 Del Method Room Air 05/25/23 02:45 BMI result Body Mass Index 22.2 Appearance: Alert. Oriented X3. No acute distress. walked in with steady gait. Eyes: Pupils equal, round and reactive to light. ENT: Pharynx normal. Neck: Normal inspection. Neck supple. CVS: Normal heart rate and rhythm. Pulses normal. Respiratory: No respiratory distress. Breath sounds normal. Abdomen: Soft and non-tender. Skin: Skin warm and dry. Normal skin color. Normal skin turgor. Extremities: No lower extremity edema. No calf ttp Neuro: Oriented X 3. No motor deficit. No sensory deficit. CN2-12 intact Medical Decision Making Medical Decision Making MDM Narrative: 47 yo male with drug abuse who was here looking for detox and discharged with resources but then made vague SI statements and told everyone he was going to check back in for crisis evaluation which he did. He came back in stating he was unsafe . He has a hx of the same in past. He has narcan with him. He is being vague and we had CARE team see him and he denies SI to them but wants to sleep here and rest. We offered him to wait in waiting room until recovery team comes back. He is aware of plan and CARE team reinforced the plan and follow up with recovery in AM from waiting room. Differential Diagnosis Differential Diagnoses: The differential diagnosis associated with the presentation includes custodial seeking, drug abuse, depression Admission/Observation Consideration of admission/observation: Escalation of care including admission/observation considered observe until care team sees patient Consult Healthcare Provider Management of the patient was discussed with: Behavioral Health Provider External Record Review External record reviewed: Inpatient record Social Determinants Patient?s care significantly limited by Social Determinants of Health including: Inadequate housing, Low income, Alcoholism and drug addiction in family and Problems related to primary support group Discharge Plan Discharge Clinical Impression: Active substance abuse Patient Disposition: Elopement Prescriptions: No Action naloxone [Narcan] 4 mg/actuation spray,non-aerosol 4 mg intranasal Q2M PRN (Reason: opioid overdose) Qty: 2 0RF Rx Instructions: spray 1 dose into ONE nostril; alternate nostrils w each dose until help arrives
--- NOTE | 2023-05-25 03:30 | PC.NURSE ---
pt seen by provider and care team, pt denies SI/HI. pt walk out and left. Provider aware.
== END 2023-05-25 04:10 | disposition left against medical advice (07) ==
PROVIDERS: Emergency Provider Emergency Medicine
DX: R45.851 Suicidal ideations (principal); F11.10 Opioid abuse, uncomplicated; F14.10 Cocaine abuse, uncomplicated
CPT/HCPCS: 99283

== ENCOUNTER 2023-05-26 21:29 | Emergency (ER) | payer MEDICAID, SELFPAY ==
[2023-05-26 21:48] VITALS: BP 109/74; PULSE 99; RESP 16; TEMP 36.7; O2SAT 96; BMI 19.9
--- NOTE | 2023-05-26 22:17 | ED.ALCOHOL ---
HPI - Alcohol General Chief Complaint: ETOH/Substance Use Stated Complaint: Overdose Time Seen by Provider: 05/26/23 22:08 Source: patient Mode of arrival: ambulatory Limitations: no limitations History of Present Illness HPI narrative: patient comes to the emergency room seeking detox. Patient states that today he used alcohol, in several street drugs. Patient states he used a little bit of everything . Patient states that he is ready to change his life and is seeking detox. Patient denies SI or HI Related Data Previous Rx's Medication Instructions Recorded naloxone 4 mg/actuation nasal 4 mg intranasal Q2M PRN opioid 05/24/23 spray (Narcan) overdose #2 ea Allergies Allergy/AdvReac Type Severity Reaction Status Date / Time seafood Allergy Difficulty Verified 05/26/23 21:47 Breathing Seasonal Allergies AdvReac Severe Nasal Verified 05/26/23 21:47 congestion Review of Systems Review of Systems: Constitutional : No Weight loss, No Fever, No Chills, No Night Sweats, No Fatigue, No Malaise ENT/Mouth : No Hearing loss, No Ear Pain, No Nasal Congestion, No Sinus Pain, No Hoarseness, No sore throat, No Rhinorrhea, No Swallowing Difficulty Eyes: No Eye Pain, No Swelling, No Redness, No Foreign Body, No Discharge, No Vision Changes Cardiovascular : No Chest Pain, No SOB, No Dyspnea on Exertion, No Orthopnea, No Edema, No Palpitations Respiratory : No Cough, No Sputum, No Wheezing, No Smoke Exposure, No Dyspnea Gastrointestinal : No Nausea, No Vomiting, No Diarrhea, No Constipation, No abdominal Pain, No Hematochezia, No Melena Genitourinary : no irregular bleeding, No Dysuria, No Urinary Frequency, No Hematuria, No Urinary Incontinence, No Urgency, No Flank Pain, No Urinary Flow Changes, No Hesitancy Musculoskeletal : No joint pain, No Myalgias, No Joint Swelling Skin : No Skin Lesions, No rash Neuro : No Weakness, No Numbness, No Paresthesias, No Loss of Consciousness, No Dizziness, No Headache Psych : No Anxiety/Panic, No Depression, No SI/HI/AH/VH, admits to alcohol and polysubstance abuse Heme/Lymph: No Bruising, No Bleeding,No Lymphadenopathy Endocrine : No Polyuria, No Polydipsia, No Temperature Intolerance PMF Past Medical History Medical History Substance abuse Alcohol abuse Social History Social History Alcohol intake: current Alcohol intake frequency: 3 or more drinks per day Alcohol type: beer and hard liquor Patient Tobacco Use Status: Former Tobacco user Substance Use Type: Crack/Cocaine, Heroin and Marijuana Physical Exam ED Vital Signs: Vital Signs - 24 hr 05/26/23 21:48 Temperature 98.0 F Pulse Rate 99 Respiratory Rate 16 Blood Pressure 109/74 Pulse Oximetry 96 Oxygen Delivery Method Room Air BMI result Body Mass Index 19.9 Const Other: Appearance: Alert. Oriented X3. No acute distress. Eyes: Pupils equal, round and reactive to light. ENT: Pharynx normal. Neck: Normal inspection. Neck supple. No lymph nodes noted. No crepitus CVS: Normal heart rate and rhythm. Pulses normal. Normal S1 and S2 Respiratory: No respiratory distress. Breath sounds normal. No Wheezing. No rales Abdomen: Soft and nontender. No rigidity. No distention. Skin: Skin warm and dry. Normal skin color. Normal skin turgor. has small laceration to the left eyebrow, bleeding controlled Extremities: No lower extremity edema. No Lacerations. No Rash Neuro: Oriented X 3. No motor deficit. No sensory deficit. Moving all extremities. No slurred speech. CN 2 through 12 grossly intact Psych: calm, cooperative, normal affect, clinically sober, coherent Course Course Course Narrative: - patient declined stitches even if required for his laceration on the left eyebrow - patient requesting detox - all of patient's labs pending - patient not suicidal or homicidal, Section 12 not indicated - care team consult pending - physician observation started at 22:20 Medical Decision Making Differential Diagnosis Differential Diagnoses: The differential diagnosis associated with the presentation includes ( alcohol abuse, polysubstance abuse, depression , homelessness) Admission/Observation Consideration of admission/observation: Escalation of care including admission/observation considered ( patient will remain under observation until seen by the care team) Discharge Plan Discharge Clinical Impression: Alcoholic intoxication, Polysubstance abuse Patient Disposition: Still a Patient Prescriptions: No Action naloxone [Narcan] 4 mg/actuation spray,non-aerosol 4 mg intranasal Q2M PRN (Reason: opioid overdose) Qty: 2 0RF Rx Instructions: spray 1 dose into ONE nostril; alternate nostrils w each dose until help arrives
[2023-05-26 22:28] LABS: MANUAL DIFF FLAG NO
[2023-05-26 22:29] LABS: Basophils Percent Auto 0.4 % (0-2); Eosinophils Absolute Auto 0.2 X10*3/uL (0.0-0.4); Eosinophils Percent Auto 1.8 % (0-4); Hemoglobin 14.1 g/dl (14.0-18.0); Imm Gran Abs Auto 0.02 X10*3/uL (0.00-0.03); Imm Gran Pct Auto 0.2 % (0.0-0.4); Lymphocytes Absolute Auto 2.6 X10*3/uL (1.2-4.9); Mean Corpuscular HGB Conc 34.4 g/dl (31.0-36.0); Mean Corpuscular Hemoglobin 33.3 pg (27.0-33.0); Mean Corpuscular Volume 96.9 fL (80.0-98.0); Mean Platelet Volume 9.5 fL (9.4-12.4); Monocytes Percent Auto 9.8 % (2-11); Neutrophils Absolute Auto 6.6 x10*3/uL (2.0-8.3); Neutrophils Percent Auto 62.8 % (45-73); Platelet Count 272 X10*3/uL (160-400); Red Blood Count 4.23 X10*6/uL (4.60-5.80); White Blood Count 10.6 X10*3/uL (4.8-10.8)
[2023-05-26 22:43] LABS: COVID-19 Test Negative (Negative); IDNOW Serial# 6674DD1D
[2023-05-26 22:49] LABS: Alanine Aminotransferase 19 U/L (0-40); Alkaline Phosphatase 102 U/L (39-117); Anion Gap 12 (12-20); Aspartate Amino Transferase 32 U/L (5-37); Bilirubin Total 0.3 mg/dL (0.0-1.0); Blood Urea Nitrogen 17 mg/dL (9-16); Calcium 9.3 mg/dL (8.4-10.2); Carbon Dioxide 29 mmol/L (22-29); Chloride 99 mmol/L (96-108); Creatinine Clr Calc Pharmacy 74.4; Estimated Glomerular Filt Rate > 60; Ethanol < 10 mg/dL; Glucose Random 97 mg/dL (60-115); Magnesium 2.3 mg/dL (1.6-2.6); Potassium 4.4 mmol/L (3.3-5.1); Sodium 136 mmol/L (135-145); Total Protein 7.2 g/dL (6.5-8.0)
[2023-05-27 00:17] VITALS: BP 116/74; PULSE 84; RESP 16; TEMP 36.7; O2SAT 98
--- NOTE | 2023-05-27 00:36 | PC.NURSE ---
Pt sleeping, easily rousable, no acute distress/behavioral concerns at this time. WCTM
[2023-05-27 02:28] VITALS: BP 120/74; PULSE 67; RESP 16; O2SAT 98
[2023-05-27 04:49] VITALS: BP 118/76; PULSE 75; RESP 16; O2SAT 97
--- NOTE | 2023-05-27 07:10 | PC.NURSE ---
pt resting quietly on stretcher, respirations even and unlabored. no signs/symptoms of distress at this time. diet ordered
--- NOTE | 2023-05-27 07:50 | PC.NURSE ---
breakfast provided, urine sample obtained
[2023-05-27 08:01] LABS: Amphetamine Screen Urine Not Detected (Not Detect); Barbiturates, Urine Not Detected (Not Detect); Benzodiazepines Screen Urine Not Detected (Not Detect); Cannabinoid Screen Urine POSITIVE (Not Detect); Cocaine Screen Urine POSITIVE (Not Detect); Fentanyl, urine POSITIVE (Not Detect); Opiate Screen Urine Not Detected (Not Detect); Phencyclidine Screen Urine Not Detected (Not Detect)
[2023-05-27 08:19] LABS: Appearance Urine Clear; Color Urine Yellow; Glucose Urine UA Negative (Negative); Leukocyte Esterase Urine Negative (Negative); Nitrite Urine Negative (Negative); PH 6.5 (5.0-9.0); Urine Blood Negative (Negative); Urine Ketones Negative (Negative); Urine Protein Negative (Neg-Trace)
[2023-05-27 08:24] LABS: Bacteria Urine None Seen (None Seen); Hyaline Casts Urine 0-2 /LPF (0-2); RBC Urine 0-2 /HPF (0-2); Squamous Epithelial Cell Urine 0-2 /HPF (0-2); WBC Urine 0-5 /HPF (0-5)
--- NOTE | 2023-05-27 09:05 | MHC.RECOVRN ---
Addendum entered by Michael Guzman 05/27/23 11:34: Pt accepted to [facility]. Lyft ordered for pt, provider aware. Addendum entered by Elaine Gallardo RN 05/27/23 09:24: Referral packet has been sent to [facility]. Original Note: Pt resting quietly on the stretcher at this time with eyes closed. Pt expressing desire to go to a detox, is agreeable for a search throughout the state. Pt reports last use was yesterday, when asked how much pt states I don't remember miss Pt reports using crack, dope, weed, beer, and liquor yesterday. Plan to initiate detox bedsearch.
== END 2023-05-27 12:08 ==
PROVIDERS: Emergency Provider Emergency Medicine
DX: F10.220 Alcohol dependence with intoxication, uncomplicated (principal); Y90.0 Blood alcohol level of less than 20 mg/100 ml; F19.10 Other psychoactive substance abuse, uncomplicated; Z20.822 Contact with and (suspected) exposure to COVID-19; Z87.891 Personal history of nicotine dependence; Z79.899 Other long term (current) drug therapy
CPT/HCPCS: 80053; 80307; 81001; 83735; 85025; 87635; 99284

== ENCOUNTER 2023-07-01 15:54 | Outpatient (REF) | payer MEDICAID, SELFPAY | END 2023-07-01 15:55 | disposition home or self-care (01) | LOC: HO.HOSX 15:54 | PROVIDERS: Visit Provider Physician Assistant | DX: Z13.89 Encounter for screening for other disorder (principal) ==

== ENCOUNTER 2024-08-03 01:43 | Emergency (ER) | payer OTHER, SELFPAY ==
[2024-08-03 01:53] VITALS: BP 138/94; PULSE 91; RESP 20; TEMP 36.6; O2SAT 98; BMI 24.5
[2024-08-03 02:09] LABS: MANUAL DIFF FLAG NO
[2024-08-03 02:11] LABS: Basophils Absolute Auto 0.1 X10*3/uL (0.0-0.2); Basophils Percent Auto 0.6 % (0-2); Eosinophils Absolute Auto 0.1 X10*3/uL (0.0-0.4); Eosinophils Percent Auto 0.8 % (0-4); Hematocrit 42.2 % (42.0-52.0); Hemoglobin 15.1 g/dl (14.0-18.0); Imm Gran Abs Auto 0.02 X10*3/uL (0.00-0.03); Imm Gran Pct Auto 0.2 % (0.0-0.4); Lymphocytes Absolute Auto 1.9 X10*3/uL (1.2-4.9); Lymphocytes Percent Auto 20.5 % (20-40); Mean Corpuscular HGB Conc 35.8 g/dl (31.0-36.0); Mean Corpuscular Hemoglobin 34.2 pg (27.0-33.0); Mean Corpuscular Volume 95.7 fL (80.0-98.0); Mean Platelet Volume 9.6 fL (9.4-12.4); Monocytes Absolute Auto 1.3 X10*3/uL (0.1-1.2); Monocytes Percent Auto 13.6 % (2-11); Neutrophils Percent Auto 64.3 % (45-73); Platelet Count 267 X10*3/uL (160-400); Red Blood Count 4.41 X10*6/uL (4.60-5.80); Red Cell Distribution Width 11.6 % (11.0-16.0); White Blood Count 9.3 X10*3/uL (4.8-10.8)
[2024-08-03 02:47] LABS: Alanine Aminotransferase 49 U/L (0-40); Albumin Level 4.5 g/dL (3.5-5.0); Alkaline Phosphatase 93 U/L (39-117); Anion Gap 17 (12-20); Aspartate Amino Transferase 137 U/L (5-37); Bilirubin Total 0.9 mg/dL (0.0-1.0); Blood Urea Nitrogen 12 mg/dL (9-16); Calcium 9.3 mg/dL (8.4-10.2); Carbon Dioxide 25 mmol/L (22-29); Chloride 101 mmol/L (96-108); Creatinine Clr Calc Pharmacy 89.5; Estimated Glomerular Filt Rate > 60; Ethanol < 10 mg/dL; Glucose Random 76 mg/dL (60-115); Potassium 3.9 mmol/L (3.3-5.1); Sodium 139 mmol/L (135-145); Total Protein 7.5 g/dL (6.5-8.0)
[2024-08-03 03:07] VITALS: BP 136/86; PULSE 74; RESP 16; TEMP 36.2; O2SAT 99
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
--- NOTE | 2024-08-03 03:56 | PC.NURSE ---
Provider to bedside for primary eval.
--- NOTE | 2024-08-03 04:19 | ED.GENADULT ---
HPI - General Adult General Chief complaint: General Medical Stated complaint: detox and foot swelling/blisters Time Seen by Provider: 08/03/24 03:51 Source: patient Mode of arrival: ambulatory Limitations: no limitations History of Present Illness ED Provider: DR. Dubon HPI narrative: 49-year-old male homeless, history of polysubstance abuse, patient has been walking since yesterday complaining of bilateral feet pain and bilateral leg swelling, patient now is looking into detox placement, no SI, no HI, no hallucination. Related Data Previous Rx's ?Medication ?Instructions ?Recorded naloxone 4 mg/actuation nasal 4 mg intranasal Q2M PRN opioid 05/24/23 spray (Narcan) overdose #2 ea Allergies Allergy/AdvReac Type Severity Reaction Status Date / Time seafood Allergy Difficulty Verified 08/03/24 01:55 Breathing Seasonal Allergies AdvReac Severe Nasal Verified 08/03/24 01:55 congestion Review of Systems Review of Systems: All other systems are reviewed and are negative Constitutional: Reports as per HPI and Reports no additional constitutional complaints Eyes: Reports as per HPI and Reports no additional eye complaints Reports system reviewed and no additional complaints, except as documented Cardiovascular: Reports as per HPI and Reports no additional cardiovascular complaints Respiratory: Reports as per HPI and Reports no additional respiratory complaints Gastrointestinal: Reports as per HPI and Reports no additional gastrointestinal complaints Genitourinary: Reports no additional female genitourinary complaints Musculoskeletal: Reports no additional musculoskeletal complaints Skin/Breast: Reports system reviewed and no additional complaints, except as docu Psychiatric: Reports no additional psychiatric complaints Endocrine: Reports no additional endocrine complaints Hematologic/Lymphatic: Reports no additional hematologic/lymphatic complaints Allergic/Immunologic: Reports no additional allergic/immunologic complaints Reports system reviewed and no additional complaints, except as documented and Reports Abnormal speech present [facility] Past Medical History Medical History Substance abuse Alcohol abuse Social History Social History Alcohol intake: current Alcohol intake frequency: 3 or more drinks per day Alcohol type: beer and hard liquor Patient Tobacco Use Status: Former Tobacco user Smoked in Last 30 Days: Yes Use of substances other than those prescribed or required for medical reasons: Yes Substance Use Type: Crack/Cocaine, Marijuana and Opiates Substance Use Frequency: Chronic Longstanding Advance Directives: No Advance Directives Information Provided: No Do you have a plan to hurt others: No Plan Physical Exam ED Vital Signs: Vital Signs - 24 hr 08/03/24 01:53 08/03/24 03:07 Temperature 97.9 F 97.2 F Pulse Rate 91 74 Respiratory Rate 20 16 Blood Pressure 138/94 H 136/86 Pulse Oximetry 98 99 Oxygen Delivery Method Room Air Room Air BMI result Body Mass Index 24.5 Vital signs have been reviewed and appear to be correct. Blood pressure elevated. Heart rate normal. Respiratory rate normal. Temperature normal. Oxygen saturation normal. Appearance: Alert. Oriented X3. No acute distress. Head: Normal external exam. Normocephalic. Atraumatic. No Klein signs noted. No raccoon eyes noted Eyes: PERRLA. EOMI. Conjunctiva and sclera normal. Eyelids normal. ENT: TM's Normal. Pharynx normal. Uvula midline. Moist mucous membranes. No trismus noted. No drooling noted. No muffled voice noted. Neck: Normal inspection. Neck supple. FROM. No adenopathy. Thyroid Normal. No meningeal signs. No neck mass noted. CVS: Normal heart rate and rhythm. Heart sound normal. No murmurs noted. Pulses normal throughout. Respiratory: No respiratory distress. Painless inspiration. Breath sounds normal. No wheezes/rales/rhonchi noted. Chest nontender. No accessory muscle usage noted or decreased air movement noted. Abdomen: Soft and nontender. Bowel sounds normal in all 4 quadrants. No distention noted. No organomegaly noted. No visible injury noted. Back: No CVA tenderness. Full range of motion noted. Skin: Skin warm and dry. Normal skin color. Normal skin turgor. No rashes/lesions/lacerations noted. Extremities: No lower extremity edema. Extremities exhibit normal range of motion. Extremities nontender. Neuro: Oriented X 3. Cranial nerve exam: II-XII are grossly intact No motor deficit. No sensory deficit. Reflexes normal. Patient Orientation: Person, Place, Time and Situation, okay hygiene and grooming. Fair eye contact, attentive, no tics or tremors. Level of Consciousness: Awake, Appropriate and Alert Patient Behavior: Appropriate, Guarded, Cooperative and Anxious Mood Description: Constricted, Blunted and Apprehensive Affect Description: Constricted, Blunted and Apprehensive Patient Cognition Impaired: No Ability to Follow Directions: Excellent Speech Pattern: Clear, Appropriate and Spontaneous Speech, nonpressured, spontaneous with regular rate and rhythm, normal volume and prosody. No dysarthria. Memory Description: Intact, Immediate Intact and Short Term Intact Hallucinations: None Delusions: Not Present Thought Process: Intact Thought Content: positive for Intact, positive for Logical, denies Suicidal Ideation and denies Homicidal Ideation. Depressive Symptoms: Not present. Judgement and Insight: Limited but adequate. Course Reevaluation(s) Reevaluation #1: Seeking detox multiple substance abuse, no SI, no HI, will keep patient for physician observation and get addiction medicine consultation. Time: 06:00 Medical Decision Making Differential Diagnosis Differential Diagnoses: The differential diagnosis associated with the presentation includes ( SI, HI, hallucination, alcohol intoxication, electrolyte derangement, severe anemia.) Admission/Observation Consideration of admission/observation: Escalation of care including admission/observation considered Lab Data [facility] Lab Attestation statement: I reviewed the patient's lab results. 08/03/24 02:05 08/03/24 02:05 Labs: Lab Results 08/03/24 Range/Units 02:05 WBC 9.3 (4.8-10.8) X10*3/uL RBC 4.41 L (4.60-5.80) X10*6/uL Hgb 15.1 (14.0-18.0) g/dl Hct 42.2 (42.0-52.0) % MCV 95.7 (80.0-98.0) fL MCH 34.2 H (27.0-33.0) pg MCHC 35.8 (31.0-36.0) g/dl RDW 11.6 (11.0-16.0) % Plt Count 267 (160-400) X10*3/uL MPV 9.6 (9.4-12.4) fL Immature Gran % (Auto) 0.2 (0.0-0.4) % Neut % (Auto) 64.3 (45-73) % Lymph % (Auto) 20.5 (20-40) % [place] % (Auto) 13.6 H (2-11) % Eos % (Auto) 0.8 (0-4) % Baso % (Auto) 0.6 (0-2) % Lymph # (Auto) 1.9 (1.2-4.9) X10*3/uL [place] # (Auto) 1.3 H (0.1-1.2) X10*3/uL Eos # (Auto) 0.1 (0.0-0.4) X10*3/uL Baso # (Auto) 0.1 (0.0-0.2) X10*3/uL Abs Immat Gran (auto) 0.02 (0.00-0.03) X10*3/uL Absolute Neuts (auto) 6.0 (2.0-8.3) x10*3/uL Absolute Nucleated RBC 0.000 (0.0-0.012) X10*3/uL Nucleated RBC % (auto) 0.0 (0.0-0.2) /100WBC Sodium 139 (135-145) mmol/L Potassium 3.9 (3.3-5.1) mmol/L Chloride 101 (96-108) mmol/L Carbon Dioxide 25 (22-29) mmol/L Anion Gap 17 (12-20) BUN 12 (9-16) mg/dL Creatinine 0.90 (0.5-1.4) mg/dL Estim Creat Clear Calc 89.5 Estimated GFR > 60 Random Glucose 76 (60-115) mg/dL Calcium 9.3 (8.4-10.2) mg/dL Total Bilirubin 0.9 (0.0-1.0) mg/dL AST 137 H (5-37) U/L ALT 49 H (0-40) U/L Alkaline Phosphatase 93 (39-117) U/L Total Protein 7.5 (6.5-8.0) g/dL Albumin 4.5 (3.5-5.0) g/dL Ethyl Alcohol < 10 mg/dL Discharge Plan Discharge Clinical Impression: Active substance abuse, Homelessness Patient Disposition: Still a Patient Prescriptions: No Action naloxone [Narcan] 4 mg/actuation spray,non-aerosol 4 mg intranasal Q2M PRN (Reason: opioid overdose) Qty: 2 0RF Rx Instructions: spray 1 dose into ONE nostril; alternate nostrils w each dose until help arrives Print Language: Mosotho
--- NOTE | 2024-08-03 05:29 | PC.NURSE ---
Pt resting on ANDREW mejía. Awaiting addiction medicine in morning, aware of plan of care.
[2024-08-03 05:58] VITALS: BP 116/65; PULSE 57; RESP 16; TEMP 36.4; O2SAT 97
--- NOTE | 2024-08-03 09:10 | PC.NURSE ---
pt reports that he uses a walker baseline but states his is unable to ambulate at this time d/t excessive walking and having blisters on his feet. wheelchair utilized to assist pt to the bathroom. urine obtained/sent to lab. diet placed/kitchen called. addiction medicine consult completed. pt otherwise resting in no apparent distress. denies pain/has no complaints. no sob/wob noted. respirations even/unlabored. plan of care ongoing.
--- NOTE | 2024-08-03 09:21 | MHC.RECOVSUP ---
Pt reports drinking ice house 24oz x10 per day, and Fireball doubles x10 per day. That equates to about 40 units of alcohol per day. pt also reports consuming 2-3 balls (3.5grams) of crack per day. pt wants to go to ATS, will do bed search.
[2024-08-03 09:29] LABS: Amphetamine Screen Urine Not Detected (Not Detect); Barbiturates, Urine POSITIVE (Not Detect); Benzodiazepines Screen Urine POSITIVE (Not Detect); Buprenorphine Scr Not Detected (Not Detect); Cannabinoid Screen Urine POSITIVE (Not Detect); Cocaine Screen Urine POSITIVE (Not Detect); Fentanyl, urine Not Detected (Not Detect); Methadone Screen, Urine Not Detected (Not Detect); Opiate Screen Urine Not Detected (Not Detect); Oxycodone Screen Urine Not Detected (Not Detect); Phencyclidine Screen Urine Not Detected (Not Detect)
[2024-08-03 11:31] VITALS: BP 111/76; PULSE 75; RESP 18; TEMP 36.3; O2SAT 98
--- NOTE | 2024-08-03 11:35 | PC.NURSE ---
vss and up to date. updated CIWA = 7 at this time. provider notified/aware of results. pt remains pleasant/calm/cooperative. respirations remain even/unlabored. plan of care ongoing.
--- NOTE | 2024-08-03 12:04 | PC.NURSE ---
per recovery team, pt has been accepted into [facility] for detox services. bed not available until 8pm tonight. transportation will be arranged via lyft by care team. pt notified/aware/agreeable to plan moving forward.
--- NOTE | 2024-08-03 12:14 | MHC.RECOVSUP ---
pt did intake with [facility]. pt is expected to claim bed at 8pm. CARE team will arrange transportation. He will be placed on contract upon arrival since he AMA last visit.
[2024-08-03] MEDS: LORazepam 1 MG TABLET 2 MG PO (12:29)
--- NOTE | 2024-08-03 12:30 | PC.NURSE ---
provider notified/aware of plan in regards to detox services as well as most updated CIWA score. medication administered per provider order. effectiveness pending.
--- NOTE | 2024-08-03 14:32 | PC.NURSE ---
updated CIWA = 5 s/p ativan administration. pt verbalizes effectiveness and feeling much better. pt otherwise has no complaints. respirations remain even/unlabored. pt remains the same in regards to being transferred to [facility]. plan of care ongoing.
[2024-08-03 16:38] VITALS: BP 119/84; PULSE 78; RESP 16; TEMP 36.2; O2SAT 97
--- NOTE | 2024-08-03 16:47 | PC.NURSE ---
vss and up to date by tech. updated CIWA = 4. pt still verbalizes feeling better s/p medication administration. pt's only c/o slight JAY. one time dose of tylenol ordered/administered. effectiveness pending.
[2024-08-03] MEDS: Acetaminophen 325 MG TABLET 975 MG PO (17:00)
--- NOTE | 2024-08-03 19:36 | PC.NURSE ---
care team booked lyft for pt, pt assisted to lyft, belongings returned to pt.
[2024-08-03 19:37] VITALS: BP 119/84; PULSE 78; RESP 16; TEMP 36.2; O2SAT 97
== END 2024-08-03 19:38 ==
PROVIDERS: Emergency Provider Emergency Medicine
DX: F19.10 Other psychoactive substance abuse, uncomplicated (principal); M79.672 Pain in left foot; M79.671 Pain in right foot; Z59.00 Homelessness unspecified; Z87.891 Personal history of nicotine dependence; Z79.899 Other long term (current) drug therapy
CPT/HCPCS: 36415; 80053; 80307; 85025; 99284; 99285

== ENCOUNTER 2024-08-28 21:10 | Emergency (ER) | payer OTHER, SELFPAY ==
--- NOTE | 2024-08-28 | ECG_ITS ---
Test Reason : OVERDOSE Blood Pressure : / mmHG Vent. Rate : 080 BPM Atrial Rate : 080 BPM P-R Int : 164 ms QRS Dur : 084 ms QT Int : 382 ms P-R-T Axes : 061 -34 011 degrees QTc Int : 440 ms Normal sinus rhythm Left axis deviation Minimal voltage criteria for LVH, may be normal variant ( R in aVL ) Septal infarct , age undetermined Abnormal ECG No previous ECGs available Referred By: Generic ED Physician Electronically Signed By:ANGELICA ANSARI
[2024-08-28 21:17] VITALS: BP 126/86; PULSE 115; PULSE 130; RESP 17; TEMP 36.9; O2SAT 98; BMI 23.6
--- NOTE | 2024-08-28 21:28 | PC.NURSE ---
PT biba after being found on the side of the road, unresponsive, PD gave 8mg narcan. on arrival pt a&ox4, denies any complaints at this time. pt reports he found a bag of heroin on the side of the road and smoked it, pt unsure where it came from, unknown how ling he was down for. Security at bedside, belongings placed in decon. pt denies si/hi attempts at this time, reports he did it for fun. normal sinus 88-90bpm.
[2024-08-28 21:32] LABS: MANUAL DIFF FLAG NO
[2024-08-28 21:34] LABS: Basophils Percent Auto 0.3 % (0-2); Hematocrit 40.1 % (42.0-52.0); Hemoglobin 13.9 g/dl (14.0-18.0); Imm Gran Abs Auto 0.02 X10*3/uL (0.00-0.03); Imm Gran Pct Auto 0.3 % (0.0-0.4); Lymphocytes Absolute Auto 0.9 X10*3/uL (1.2-4.9); Lymphocytes Percent Auto 13.2 % (20-40); Mean Corpuscular HGB Conc 34.7 g/dl (31.0-36.0); Mean Corpuscular Hemoglobin 33.8 pg (27.0-33.0); Mean Corpuscular Volume 97.6 fL (80.0-98.0); Mean Platelet Volume 9.3 fL (9.4-12.4); Monocytes Absolute Auto 0.7 X10*3/uL (0.1-1.2); Monocytes Percent Auto 9.8 % (2-11); Neutrophils Absolute Auto 5.4 x10*3/uL (2.0-8.3); Neutrophils Percent Auto 76.4 % (45-73); Platelet Count 355 X10*3/uL (160-400); Red Blood Count 4.11 X10*6/uL (4.60-5.80); Red Cell Distribution Width 11.8 % (11.0-16.0); White Blood Count 7.1 X10*3/uL (4.8-10.8)
[2024-08-28 21:55] LABS: Alanine Aminotransferase 23 U/L (0-40); Albumin Level 3.9 g/dL (3.5-5.0); Alkaline Phosphatase 73 U/L (39-117); Anion Gap 12 (12-20); Aspartate Amino Transferase 47 U/L (5-37); Bilirubin Total 0.5 mg/dL (0.0-1.0); Blood Urea Nitrogen 13 mg/dL (9-16); Calcium 8.5 mg/dL (8.4-10.2); Carbon Dioxide 23 mmol/L (22-29); Chloride 104 mmol/L (96-108); Estimated Glomerular Filt Rate > 60; Ethanol 28 mg/dL; Glucose Random 106 mg/dL (60-115); Potassium 3.3 mmol/L (3.3-5.1); Sodium 136 mmol/L (135-145)
[2024-08-28 22:00] VITALS: BP 100/65; PULSE 84; RESP 16; TEMP 36.6; O2SAT 96
--- NOTE | 2024-08-28 22:33 | ED.OVERDOSE ---
HPI - Overdose General Chief Complaint: Overdose Stated Complaint: OD, 8 MG NARCAN GIVEN BY PD Time Seen by Provider: 08/28/24 21:54 Source: patient Mode of arrival: EMS Limitations: no limitations History of Present Illness ED Provider: HPI Narrative: Patient's history of substance abuse uses heroin and fentanyl use that earlier was found down on the street was given 8 mg Narcan by PD now alert oriented x3 no signs of injury wants to go to detox patient is homeless patient denies any depression or SI patient was sober for 11 years when he was not custody and been using drugs for last 1 year off and on Related Data Previous Rx's ?Medication ?Instructions ?Recorded naloxone 4 mg/actuation nasal 4 mg intranasal Q2M PRN opioid 05/24/23 spray (Narcan) overdose #2 ea Allergies Allergy/AdvReac Type Severity Reaction Status Date / Time seafood Allergy Difficulty Verified 08/28/24 21:19 Breathing Seasonal Allergies AdvReac Severe Nasal Verified 08/28/24 21:19 congestion Review of Systems Review of Systems: Yes all other systems are reviewed and are negative [facility] Past Medical History Medical History Substance abuse Alcohol abuse Social History Social History Alcohol intake: current Alcohol intake frequency: 3 or more drinks per day Alcohol type: beer and hard liquor Patient Tobacco Use Status: Former Tobacco user Smoked in Last 30 Days: No Use of substances other than those prescribed or required for medical reasons: Yes Substance Use Type: Crack/Cocaine, Marijuana and Opiates Advance Directives: No Do you have a plan to hurt others: No Plan Physical Exam Vital Signs: Vital Signs: Last Vital Signs Temp 98.1 F 08/29/24 06:38 Pulse 68 08/29/24 06:38 Resp 16 08/29/24 06:38 BP 131/69 08/29/24 06:38 Pulse Ox 97 08/29/24 06:38 O2 Del Method Room Air 08/29/24 06:38 BMI result Body Mass Index 23.6 Appearance: Alert. Oriented X3. No acute distress. Eyes: No pallor or icterus ENT: Pharynx normal. Oral Mucosa moist Neck: Normal inspection. Neck supple. CVS: Normal heart rate and rhythm. Pulses normal. Respiratory: No respiratory distress. Equal air entry bilateral, no wheezing/rales/rhonchi Abdomen: Soft and nontender. Bowel sounds are present, no mass palpable, no CVA tenderness Skin: Skin warm and dry. Normal skin color. Normal skin turgor. Extremities: No lower extremity edema. No calf tenderness Neuro: Oriented X 3. No motor deficit. Medical Decision Making Medical Decision Making [facility] Narrative: Patient with substance abuse with overdose requesting to go to program as he wants to stop using drugs will get care team involved Lab Data [facility] Lab Attestation statement: I reviewed the patient's lab results. 08/28/24 21:29 08/28/24 21:29 Labs: Lab Results 08/28/24 08/28/24 Range/Units 21:29 23:52 WBC 7.1 (4.8-10.8) X10*3/uL RBC 4.11 L (4.60-5.80) X10*6/uL Hgb 13.9 L (14.0-18.0) g/dl Hct 40.1 L (42.0-52.0) % MCV 97.6 (80.0-98.0) fL MCH 33.8 H (27.0-33.0) pg MCHC 34.7 (31.0-36.0) g/dl RDW 11.8 (11.0-16.0) % Plt Count 355 D (160-400) X10*3/uL MPV 9.3 L (9.4-12.4) fL Immature Gran % (Auto) 0.3 (0.0-0.4) % Neut % (Auto) 76.4 H (45-73) % Lymph % (Auto) 13.2 L (20-40) % [place] % (Auto) 9.8 (2-11) % Eos % (Auto) 0.0 (0-4) % Baso % (Auto) 0.3 (0-2) % Lymph # (Auto) 0.9 L (1.2-4.9) X10*3/uL [place] # (Auto) 0.7 (0.1-1.2) X10*3/uL Eos # (Auto) 0.0 (0.0-0.4) X10*3/uL Baso # (Auto) 0.0 (0.0-0.2) X10*3/uL Abs Immat Gran (auto) 0.02 (0.00-0.03) X10*3/uL Absolute Neuts (auto) 5.4 (2.0-8.3) x10*3/uL Absolute Nucleated RBC 0.000 (0.0-0.012) X10*3/uL Nucleated RBC % (auto) 0.0 (0.0-0.2) /100WBC Sodium 136 (135-145) mmol/L Potassium 3.3 (3.3-5.1) mmol/L Chloride 104 (96-108) mmol/L Carbon Dioxide 23 (22-29) mmol/L Anion Gap 12 (12-20) BUN 13 (9-16) mg/dL Creatinine 0.87 (0.5-1.4) mg/dL Estim Creat Clear Calc 96.0 Estimated GFR > 60 Random Glucose 106 (60-115) mg/dL Calcium 8.5 D (8.4-10.2) mg/dL Total Bilirubin 0.5 (0.0-1.0) mg/dL AST 47 H (5-37) U/L ALT 23 (0-40) U/L Alkaline Phosphatase 73 (39-117) U/L Total Protein 7.0 (6.5-8.0) g/dL Albumin 3.9 (3.5-5.0) g/dL Urine Opiates Screen POSITIVE H (Not Detect) Ur Buprenorphine Scrn Not Detected (Not Detect) ng/mL Ur Oxycodone Screen Not Detected (Not Detect) ng/mL Urine Methadone Screen Not Detected (Not Detect) ng/mL Urine Fentanyl Screen POSITIVE H (Not Detect) Ur Barbiturates Screen Not Detected (Not Detect) Ur Phencyclidine Scrn Not Detected (Not Detect) Ur Amphetamines Screen Not Detected (Not Detect) U Benzodiazepines Scrn Not Detected (Not Detect) Urine Cocaine Screen POSITIVE H (Not Detect) U Marijuana (THC) Screen POSITIVE H (Not Detect) Ethyl Alcohol 28 mg/dL Discharge Plan Discharge Clinical Impression: Polysubstance abuse Patient Disposition: Still a Patient Prescriptions: No Action naloxone [Narcan] 4 mg/actuation spray,non-aerosol 4 mg intranasal Q2M PRN (Reason: opioid overdose) Qty: 2 0RF Rx Instructions: spray 1 dose into ONE nostril; alternate nostrils w each dose until help arrives Print Language: [place]ill[place]
--- NOTE | 2024-08-28 23:32 | PC.NURSE ---
pt requesting detox at this time, pt states he would like help to stop using. Dr.Anwer pollard.
[2024-08-28 23:34] VITALS: BP 106/63; PULSE 92; RESP 18; TEMP 37; O2SAT 97
--- NOTE | 2024-08-28 23:43 | PC.NURSE ---
pt ambulatory to bathroom with steady gait, instructed with urine sample at this time.
--- NOTE | 2024-08-28 23:56 | MHC.EDTECH ---
This tech took over care of pt at 2300,rounded and introduced self to pt,vitals taken,patient was given a can of dotty agata,and a pitcher if ice water, pt is watching TV,appears comfortable call de guzman in reach
[2024-08-29 00:13] LABS: Amphetamine Screen Urine Not Detected (Not Detect); Barbiturates, Urine Not Detected (Not Detect); Benzodiazepines Screen Urine Not Detected (Not Detect); Buprenorphine Scr Not Detected (Not Detect); Cannabinoid Screen Urine POSITIVE (Not Detect); Cocaine Screen Urine POSITIVE (Not Detect); Fentanyl, urine POSITIVE (Not Detect); Methadone Screen, Urine Not Detected (Not Detect); Opiate Screen Urine POSITIVE (Not Detect); Oxycodone Screen Urine Not Detected (Not Detect); Phencyclidine Screen Urine Not Detected (Not Detect)
[2024-08-29 01:35] VITALS: PULSE 79; RESP 14; O2SAT 97
[2024-08-29 03:57] VITALS: BP 109/62; PULSE 69; RESP 14; TEMP 36.8; O2SAT 97
[2024-08-29 06:38] VITALS: BP 131/69; PULSE 68; RESP 16; TEMP 36.7; O2SAT 97
--- NOTE | 2024-08-29 07:49 | PC.NURSE ---
pt is alert and oriented, skin appropriate for ethnicity, respirations even and unlabored, pt is reporting generalized pain-hands/body/head, pt is reporting that he would like to get into detox, pt ate breakfast and states that he is not on any prescibed mediations
[2024-08-29 08:14] VITALS: BP 102/72; PULSE 76; RESP 18; TEMP 36.8; O2SAT 96
[2024-08-29] MEDS: Acetaminophen 325 MG TABLET 975 MG PO (08:15)
--- NOTE | 2024-08-29 09:13 | MHC.RECOVSUP ---
Youth Leader Note Patient seen in ED. Consult requested for?ATS referral? Current substance use reported by patient (if applicable)? Type?Amount: Past 5 weeks, everyday: -Smoking 1 bundle of dope -Smoking 1&1/2 Balls (5grams) of Crack -Smoking [place] when available -20 plus units of alcohol a day between malt liquor and hard liquor. Currently on SUNDAR or MOUD:No Plan:?Get pt into ATS today.
--- NOTE | 2024-08-29 09:38 | HO.SUDE ---
Substance Use Disorder Evaluation completed. Pt interested in ATS. development coach, Slim, to conduct bedsearch. ED provider aware.
--- NOTE | 2024-08-29 10:07 | MHC.RECOVSUP ---
Cutting Machine Tender Helper Note [facility] referrals [facility] to [facility].
--- NOTE | 2024-08-29 12:46 | PC.NURSE ---
pt is currently doing an intake interview with [facility]
--- NOTE | 2024-08-29 13:32 | PC.NURSE ---
report give Christi kramer at [facility]
[2024-08-29 13:38] VITALS: BP 118/64; PULSE 72; RESP 20; TEMP 36.2; O2SAT 98
== END 2024-08-29 13:52 | disposition home or self-care (01) ==
PROVIDERS: Emergency Provider Internal Medicine
DX: F11.10 Opioid abuse, uncomplicated (principal); F14.10 Cocaine abuse, uncomplicated; F12.10 Cannabis abuse, uncomplicated; R94.31 Abnormal electrocardiogram [ECG] [EKG]; Z51.81 Encounter for therapeutic drug level monitoring; Z79.899 Other long term (current) drug therapy
CPT/HCPCS: 36415; 80053; 80307; 85025; 93005; 99285; S9485

== ENCOUNTER → 2024-08-28 21:34 | Outpatient (BNV) | payer OTHER, SELFPAY | PROVIDERS: Emergency Provider Internal Medicine; Visit Provider Internal Medicine | DX: R94.31 Abnormal electrocardiogram [ECG] [EKG] (principal) | CPT/HCPCS: 93010 ==